=== PATIENT | female | born 1945 | race Caucasian/White ===

== ENCOUNTER 2018-10-26 13:47 | Outpatient (CLI) | payer MEDICARE ==
--- NOTE | 2018-10-26 14:39 | RAD ---
RIGHT KNEE 2 VIEWS: Date: 10/26/18 HISTORY: Knee pain. FINDINGS: Moderate degenerative changes. There is chondrocalcinosis. Spurring from the tibial condyles and femo ral condyles. Spurring at the patellofemoral joint. No significant joint effusion. No fracture. IMPRESSION: There are moderate degenerative changes as described. POS: ROHINI
== END 2018-10-26 13:48 | disposition home or self-care (01) ==
LOC: BICRAD 13:47
PROVIDERS: ATTEND Family Medicine
DX: M25.561 Pain in right knee (principal); M17.11 Unilateral primary osteoarthritis, right knee

== ENCOUNTER 2018-12-19 14:15 | Outpatient (CLI) | payer MEDICARE ==
--- NOTE | 2018-12-19 14:59 | MMO ---
Bilateral MAMMO Bilat Diag [facility]. CLINICAL HISTORY: Patient is 73 years old and is seen for diagnostic exam. The patient family history of breast cancer is unknown. The patient has a history of hodgkin's disease and colon cancer. 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 VIEWS: The views performed were: bilateral craniocaudal with tomosynthesis; bilateral mediolateral oblique with tomosynthesis; and bilateral mediolateral with tomosynthesis. FILMS COMPARED: The present examination has been compared to prior imaging studies performed at [facility] on 03/09/2011, 02/23/2014, 03/13/2014 and 03/08/2016. MAMMOGRAM FINDINGS: The breasts are almost entirely fat. Finding 1: There are stable post operative changes seen in both breasts. Finding 2: There are stable benign appearing calcifications seen in both breasts. There are no suspicious masses, suspicious calcifications, or new areas of architectural distortion. IMPRESSION: THERE IS NO MAMMOGRAPHIC EVIDENCE OF MALIGNANCY. A ROUTINE FOLLOW-UP MAMMOGRAM IN 1 YEAR IS RECOMMENDED. THE RESULTS OF THIS EXAM WERE SENT TO THE PATIENT. ACR BI-RADS Category 2 - Benign finding MAMMOGRAPHY NOTE: 1. A negative mammogram report should not delay a biopsy if a dominant of clinically suspicious mass is present. 2. Approximately 10% to 15% of breast cancers are not detected by mammography. 3. Adenosis and dense breasts may obscure an underlying neoplasm. Reported by: MARIA DOLORES MCLEAN MD Electonically Signed: [id number]
== END 2018-12-19 14:16 | disposition home or self-care (01) ==
LOC: BICMAMMO 14:15
PROVIDERS: ATTEND Family Medicine
DX: D12.6 Benign neoplasm of colon, unspecified (principal); Z85.71 Personal history of Hodgkin lymphoma; Z85.038 Personal history of other malignant neoplasm of large intestine; Z90.13 Acquired absence of bilateral breasts and nipples
CPT/HCPCS: 77066; G0279

== ENCOUNTER 2019-02-25 20:34 | Inpatient (IN) | payer MEDICARE ==
[2019-02-25 21:10] LABS: #Basophils 0.1 thou/uL (0.0-0.2); #Eosinphils 0.4 thou/uL (0.0-0.7); #Lymphocytes 2.1 thou/uL (1.20-3.40); #Monocytes 0.9 thou/uL (0.11-0.59); #Neutrophils 7.4 thou/uL (1.40-6.50); %Basophils 0.9 % (0.0-1.0); %Eosinophils 3.7 % (0.0-10.0); %Lymphocytes 19.1 % (21.0-51.0); %Monocytes 8.2 % (0.0-10.0); %Neutrophils 68.2 % (42.0-75.0); Hemoglobin 12.1 g/dL (12.0-16.0); Mean Corpuscular HGB CONC 33.2 g/dL (32.0-36.0); Mean Corpuscular Hemoglobin 30.2 pg (27.0-31.0); Mean Corpuscular Volume 91.2 fL (78.0-98.0); Mean Platelet Volume 7.6 fL (7.4-10.4); Platelet Count 209 thou/uL (130-400); RBC Distribution Width 12.8 % (11.5-14.5); Red Blood Cell (RBC) Count 4.01 mill/uL (4.20-5.40); White Blood Cell (WBC) Count 10.9 thou/uL (4.8-10.8)
[2019-02-25] MEDS ORDERED: methylPREDNISolone Sod Succ/PF 125 MG/2 ML VIAL ONE (21:24)
[2019-02-25 21:25] LABS: ALT (SGPT) 12 U/L (8-55); AST (SGOT) 18 U/L (5-34); Albumin 4.1 g/dL (3.4-4.8); Alkaline Phosphatase 76 U/L (40-110); Anion Gap 14 mmol/L (10-20); BUN (Urea Nitrogen) 22 mg/dL (9.8-20.1); Bilirubin, Total 0.4 mg/dL (0.2-1.2); Calc. Creatinine Clearance 0 mL/min (70-130); Calcium 9.1 mg/dL (7.8-10.44); Carbon Dioxide 22 mmol/L (23-31); Chloride 106 mmol/L (98-107); Estimated GFR-MDRD 54; Globulin 3.2 g/dL (2.4-3.5); Glucose 171 mg/dL (83-110); Potassium 4.7 mmol/L (3.5-5.1); Protein, Total 7.3 g/dL (6.0-8.3); Sodium 137 mmol/L (136-145)
--- NOTE | 2019-02-25 21:28 | RAD ---
Exam: Chest one view: HISTORY: Chest pain shortness of breath FINDINGS: Extensive surgical clips overlie the left and right chest wall regions. Heart size is upper range of normal. Inspiration is somewhat less than optimal. No confluent pneumonia, overt edema, or pleural effusion. IMPRESSION: Extensive surgical clips overlying the right left chest. Somewhat less than optimal inspiration. No s ignificant acute intrathoracic disease.
--- NOTE | 2019-02-25 22:32 | CT ---
EXAM: CT angiogram of the chest including 3-D rendering: HISTORY: Chest pain COMPARISON: None FINDINGS: There is adequate opacification of the pulmonary arteries. No evidence for aortic aneurysm or dissection. No convincing CT evidence for acute pulmonary embolism. Somewhat dilated proximal pulmonary artery se gments. Bilateral pleural effusions solid larger on the right with some scattered linear parenchymal changes have a more chronic appearance. Old granulomatous calcifications in the right hilum. No evidence for mediastinal mass or adenopathy. No evidence for pericardial effusion. The visualized upper abdomen is unremarkable. IMPRESSION: No convincing CT evidence for acute pulmonary embolism. Bilateral pleural effusions. Somewhat dilated proximal pulmonary artery segments. Other findings as above.
[2019-02-25] MEDS ORDERED: Ketorolac Tromethamine 30 MG/ML VIAL ONE (22:50)
[2019-02-26 00:19] LABS: Bacteria/HPF 1+ HPF (None Seen); Bilirubin Negative (Negative); Blood, Urine Negative (Negative); Clarity Clear (Clear); Glucose, Urine (Dipstick) Normal (Negative); Leukocyte 75 Leu/uL (Negative); Nitrite Negative (Negative); Protein, Urine (Dipstick) Negative (Neg-Trace); RBC/HPF 0-3 HPF (0-3); Squamous Epithelial 0-3 HPF (0-3); Urobilinogen Normal mg/dL (Less than 2); WBC/HPF 0-3 HPF (0-3)
[2019-02-26] MEDS ORDERED: cefTRIAXone\\ROCEPHIN 1 GM VIAL ONE (00:53)
[2019-02-26 01:11] LABS: Troponin I Less than 0.010 ng/mL (< 0.028)
[2019-02-26] MEDS ORDERED: Aspirin Chewable 81 MG TAB ONE (01:45)
[2019-02-26] MEDS ORDERED: ALPRAZolam 1 MG TAB PO PRN (02:11)
[2019-02-26] MEDS ORDERED: Dextrose 5% in Water 1,000 ML IV PRN (02:16)
[2019-02-26] MEDS ORDERED: Dextrose 50% Abboject 50 ML SYRINGE SLOW IVP PRN (02:16)
[2019-02-26 02:27] VITALS: BMI 38.2
[2019-02-26] MEDS ORDERED: Lisinopril 20 MG TAB PO SCH (02:30)
[2019-02-26] MEDS ORDERED: Aspirin 81 mg Enteric Coated Tablet PO SCH (02:30)
[2019-02-26] MEDS ORDERED: Triamterene/Hydrochlorothiazide 37.5 mg/25 mg Tablet PO SCH (02:45)
[2019-02-26] MEDS ORDERED: Venlafaxine HCl XR 150 MG CAP PO SCH (02:45)
[2019-02-26] MEDS: Benzonatate 100 MG CAP PO PRN ×4 (03:02→21:06)
[2019-02-26] MEDS: Simvastatin 40 MG TAB PO SCH ×2 (03:04→20:57)
--- NOTE | 2019-02-26 03:04 | HP ---
CHIEF COMPLAINT: Chest pain and shortness of breath. HISTORY OF PRESENT ILLNESS: Ms. Lynch is a 73-year-old female with past medical history of asthma, congestive heart failure, mitral valve stenosis, bundle-branch block, breast and colon cancer, hypertension, among others, presented to the emergency room with shortness of breath and chest pain that started this morning. The patient used her nebulizer machine without any improvement. The patient also said she had a sore throat and a temperature of 101. The patient started wheezing and also had 4 diarrheal episodes. Workup in the emergency room, the patient was in respiratory distress, wheezing. The patient was given DuoNeb nebulizer treatments and IV steroids. Initial workup, the patient had BNPs in the 200s, procalcitonin level is normal. The patient is being admitted to hospital for further management. PAST MEDICAL HISTORY: 1. Congestive heart failure. 2. Mitral stenosis. 3. Bundle branch block. 4. Asthma. 5. Diabetes. 6. Breast and colon cancer. 7. Diverticulitis. 8. Hypertension. PAST SURGICAL HISTORY: 1. Colon resection. 2. Bilateral mastectomy. FAMILY HISTORY: Reviewed and noncontributory. ALLERGIES: NO KNOWN ALLERGIES. HOME MEDICATIONS: Please see home medication reconciliation form for updated medications. REVIEW OF SYSTEMS: Review of 14 systems negative except what is mentioned in history of present illness. PHYSICAL EXAMINATION: GENERAL: The patient is awake, alert, oriented, in moderate respiratory distress. HEAD AND NECK: Normocephalic, atraumatic. NECK: Supple. No JVD. CHEST: Few bilateral expiratory wheeze. There is mild chest wall tenderness. HEART: S1, S2. Regular. ABDOMEN: Soft, nontender. Bowel sounds present. NEUROLOGIC: Awake, alert, oriented x3. PSYCHIATRIC: Normal mood. EXTREMITIES: No clubbing, no cyanosis. LABORATORY DATA: CBC; WBC count is 10.9, otherwise unremarkable. Chemistry; glucose 171, troponin 0.017, and BNP 219. CT angiogram of the chest shows bilateral pleural effusions. ASSESSMENT: 1. Acute chest pain. 2. Asthma with acute exacerbation. 3. Bilateral pleural effusions, small. 4. Elevated BNP, the patient has a history of congestive heart failure and mitral valve stenosis. 5. Diabetes mellitus, hyperglycemia. 6. Hypertension. 7. History of colon cancer. PLAN: 1. Admit. 2. Telemetry monitoring. 3. Serial cardiac enzymes. 4. Continue with bronchodilators as scheduled and as needed. 5. IV steroids. 6. Reconcile home medications. 7. Deep venous thrombosis prophylaxis. Low molecular weight heparin. 8. Expected length of stay, 2 midnights or more. Job ID: [id number]
[2019-02-26] MEDS: Triamterene/Hydrochlorothiazide 37.5 mg/25 mg Tablet PO SCH ×2 (03:07→20:58)
[2019-02-26] MEDS ORDERED: Docusate 100 MG CAP PO SCH (03:15)
[2019-02-26] MEDS: traMADol HCl 50 MG TAB PO PRN ×3 (03:37→17:19)
[2019-02-26 03:58] LABS: Troponin I Less than 0.010 ng/mL (< 0.028)
[2019-02-26] MEDS: methylPREDNISolone Sod Succ 40 MG VIAL IVP SCH ×3 (05:26→18:30)
[2019-02-26] MEDS: Levothyroxine Sodium 75 MCG TAB PO SCH (05:26)
[2019-02-26] MEDS: HumaLOG 300 UNITS/3 ML VIAL SC PRN ×4 (05:33→21:00)
[2019-02-26] MEDS ORDERED: Alogliptin 25 MG TAB PO SCH (09:00)
[2019-02-26] MEDS ORDERED: Non-Formulary Item 1 EACH (Insulin Degludec [Tresiba] 20 UNIT) SQ SCH (12:00)
[2019-02-26] MEDS: Insulin Glargine 20 UNITS in Pre-Filled Syringe 1 EACH SC SCH (13:11)
[2019-02-26] MEDS ORDERED: Ketorolac Tromethamine 30 MG/ML VIAL IVP SCH (14:15)
[2019-02-26] MEDS ORDERED: Furosemide 20 MG/2 ML VIAL SLOW IVP SCH (15:45)
[2019-02-26] MEDS ORDERED: guaiFENesin/Dextromethorphan 10 ML UDCUP PO PRN (15:48)
--- NOTE | 2019-02-26 15:52 | PDOC.HOSPP ---
- Subjective Encounter Date: 02/26/19 Encounter Time: 15:40 Subjective: f/u for cough/CP/SOB. Receiving Duonebs/Solumedrol with persistent cough with deep inspiration. Minimally productive. Decreased exercise tolerance. - Objective Vital Signs & Weight: Vital Signs (12 hours) Temp Pulse Resp BP Pulse Ox 02/26/19 13:53 105 H 16 02/26/19 11:32 106 H 20 02/26/19 09:38 98.3 F 102 H 18 117/56 L 95 02/26/19 06:32 98 02/26/19 06:29 109 H 20 98 Weight Weight 216 lb I&O: 02/25/19 02/26/19 02/27/19 06:59 06:59 06:59 Intake Total 481 Output Total 440 Balance 41 Result Diagrams: 02/25/19 20:54 02/25/19 20:54 Additional Labs: Accuchecks 02/26/19 02/26/19 13:08 05:31 POC Glucose 501 H 440 H Radiology Reviewed by me: Yes (CTA chest - bilat pleural effusions R>L) EKG Reviewed by me: Yes (Tele - Sinus tachy) Hospitalist ROS - Medication Medications: Active Medications Generic Name Dose Route Start Last Admin Trade Name Freq PRN Reason Stop Dose Admin Albuterol/Ipratropium 3 ml 02/26/19 02:30 02/26/19 13:53 Duoneb NEB 3 ml [id number] TONYA Administration Benzonatate 100 mg 02/26/19 02:49 02/26/19 14:24 Tessalon PO 100 mg Q4H PRN Administration Cough Insulin Glargine 20 units/ 0.2 mls @ 0 mls/hr 02/26/19 12:00 02/26/19 13:11 Miscellaneous Medication SC 0.2 mls 1200 TONYA Administration Insulin Human Lispro 0 units 02/26/19 02:16 02/26/19 13:13 Humalog SC 10 unit .MODERATE SLIDING SC PRN Administration Moderate Correctional Scale Ketorolac Tromethamine 30 mg 02/26/19 14:15 02/26/19 14:22 Toradol IVP 02/26/19 16:00 30 mg NOW TONYA Administration Levothyroxine Sodium 75 mcg 02/26/19 06:00 02/26/19 05:26 Synthroid PO 75 mcg 0600 TONYA Administration Methylprednisolone Sodium Succinate 40 mg 02/26/19 06:00 02/26/19 13:11 Solu-Medrol IVP 40 mg Q6HR TONYA Administration Simvastatin 80 mg 02/26/19 21:00 02/26/19 03:04 Zocor PO 80 mg HS TONYA Administration Tramadol HCl 50 mg 02/26/19 03:30 02/26/19 09:38 Ultram PO 50 mg Q6H PRN Administration Mild-Moderate Pain (1-5) Triamterene/HCTZ 1 tab 02/26/19 21:00 02/26/19 03:07 Maxzide-25 PO 1 tab HS TONYA Administration - Exam General Appearance: NAD, awake alert Eye: PERRL, anicteric sclera ENT: normocephalic atraumatic, no oropharyngeal lesions Neck: supple, symmetric, no JVD, no thyromegaly, no lymphadenopathy Heart: no murmur, no gallops, no rubs, normal peripheral pulses Heart - other findings: tachycardic Respiratory - other findings: coarse sounds bilat, diminished in bases Gastrointestinal: soft, non-tender, non-distended, normal bowel sounds Extremities: no cyanosis Extremities - other findings: minimal edema LE's, small nodule of prox L tibia, firm/mobile Skin: normal turgor, no rashes Neurological: cranial nerve grossly intact, no new deficit Musculoskeletal: normal tone, normal strength Psychiatric: normal affect, A&O x 3 Hosp A/P (1) Dyspnea Code(s): R06.00 - DYSPNEA, UNSPECIFIED Status: Acute Plan: Likely due to #2, continue mgmt as outlined below, O2 prn (2) Bronchitis, acute, with bronchospasm Code(s): J20.9 - ACUTE BRONCHITIS, UNSPECIFIED Status: Acute Plan: Suspected, continue Levaquin, Solumedrol, Duonebs, Robitussin DM (3) Pleural effusion Code(s): J90 - PLEURAL EFFUSION, NOT ELSEWHERE CLASSIFIED Status: Acute Plan: Check 2D echo, TSH, FT4, trial Lasix 20mg IV x 1 now (4) Chest wall pain Code(s): R07.89 - OTHER CHEST PAIN Status: Acute Plan: Toradol 30mg IV q6h (5) Mass of left lower extremity Code(s): R22.42 - LOCALIZED SWELLING, MASS AND LUMP, LEFT LOWER LIMB Status: Acute Plan: Check plain radiographs, pain control, likely outpt referral for evaluation - Plan continue antibiotics, psych social worker, respiratory therapy, out of bed/ambulate , DVT proph w/SCDs Stable overall Lasix 20mg IV x 1 now Add Levaquin 500mg po daily Continue Duonebs/Solumedrol 2D echo for EF X-rays of LLE AM lab: TSH, FT4
--- NOTE | 2019-02-26 16:20 | RAD ---
2 views left tibia/fibula: 02/26/2019 COMPARISON: None HISTORY: Mass lesion of left tibia FINDINGS: No fracture or dislocation. No radiopaque foreign body or subcutaneous gas. There is an ova l calcification overlying the medial femoral condyle which could represent an intra-articular loose body, measuring 1.4 cm in transverse dimension. IMPRESSION: No acute fracture or dislocation. Given history of mass lesion, MRI advised with and with out contrast. Possible intra-articular loose body as detailed above.
[2019-02-26] MEDS: Ketorolac Tromethamine 30 MG/ML VIAL IVP SCH ×2 (18:30→21:08)
[2019-02-26] MEDS ORDERED: HumaLOG 300 UNITS/3 ML VIAL SC SCH (19:00)
[2019-02-26] MEDS: Aspirin 81 mg Enteric Coated Tablet PO SCH (20:57)
[2019-02-26] MEDS: Docusate 100 MG CAP PO SCH (20:58)
[2019-02-26] MEDS: Venlafaxine HCl XR 150 MG CAP PO SCH (20:58)
[2019-02-26] MEDS: Lisinopril 20 MG TAB PO SCH (20:58)
[2019-02-26] MEDS: Alogliptin 25 MG TAB PO SCH (20:59)
[2019-02-26] MEDS ORDERED: LIRAGLUTIDE 1.2 MG SC SCH (21:00)
[2019-02-26] MEDS ORDERED: Linaclotide [Linzess] 145 MCG PO SCH (21:00)
[2019-02-27] MEDS: methylPREDNISolone Sod Succ 40 MG VIAL IVP SCH ×4 (00:24→17:53)
[2019-02-27] MEDS: traMADol HCl 50 MG TAB PO PRN ×3 (00:26→16:59)
[2019-02-27 04:37] LABS: Anion Gap 15 mmol/L (10-20); BUN (Urea Nitrogen) 34 mg/dL (9.8-20.1); Calc. Creatinine Clearance 65 mL/min (70-130); Calcium 8.9 mg/dL (7.8-10.44); Carbon Dioxide 19 mmol/L (23-31); Chloride 103 mmol/L (98-107); Estimated GFR-MDRD 43; Glucose 326 mg/dL (83-110); Potassium 6.3 mmol/L (3.5-5.1); Sodium 131 mmol/L (136-145)
[2019-02-27 04:50] LABS: Free T4 (Free Thyroxine) 0.85 ng/dL (0.70-1.48); Thyroid Stimulating Hormone 0.296 uIU/mL (0.35-4.94)
[2019-02-27] MEDS ORDERED: Furosemide 20 MG/2 ML VIAL SLOW IVP SCH (06:00)
[2019-02-27] MEDS: Levothyroxine Sodium 75 MCG TAB PO SCH (06:16)
[2019-02-27] MEDS: Ketorolac Tromethamine 30 MG/ML VIAL IVP SCH ×3 (06:17→17:53)
[2019-02-27] MEDS: Benzonatate 100 MG CAP PO PRN ×3 (06:30→16:58)
[2019-02-27] MEDS: Insulin Glargine 20 UNITS in Pre-Filled Syringe 1 EACH SC SCH (12:09)
[2019-02-27] MEDS: HumaLOG 300 UNITS/3 ML VIAL SC PRN ×3 (12:09→20:51)
--- NOTE | 2019-02-27 14:09 | PDOC.HOSPP ---
- Subjective Encounter Date: 02/27/19 Encounter Time: 14:00 Subjective: f/u for dyspnea and suspected bronchitis/asthma exacerbation on Solumedrol, Duonebs, Dulera. Still coughing and feels weak. Echo performed today but results pending. - Objective Vital Signs & Weight: Vital Signs (12 hours) Temp Pulse Resp BP Pulse Ox 02/27/19 11:30 98.5 F 112 H 20 126/56 L 95 02/27/19 11:20 102 H 16 02/27/19 07:31 98 F 110 H 24 H 121/83 95 02/27/19 07:07 95 02/27/19 06:55 98 16 95 02/27/19 04:07 97.9 F 96 17 115/65 92 L Weight Weight 216 lb I&O: 02/26/19 02/27/19 02/28/19 06:59 06:59 06:59 Intake Total 481 1531 Output Total 440 850 Balance 41 681 Result Diagrams: 02/25/19 20:54 02/27/19 03:52 Additional Labs: Accuchecks 02/27/19 02/27/19 02/26/19 10:46 03:58 20:35 POC Glucose 542 H 344 H 439 H 02/26/19 16:29 POC Glucose 512 H Microbiology 02/25/19 23:50 Nasal swab Influenza Types A,B Direct EIA - Final 02/25/19 21:28 Venous blood - Right Arm Blood Culture - Preliminary Specimen has been received and culture in progress. No Growth to date. 02/25/19 21:24 Venous blood - Left Arm Blood Culture - Preliminary Specimen has been received and culture in progress. No Growth to date. Laboratory Tests 02/25/19 02/25/19 02/25/19 20:54 20:54 20:54 Sodium 137 Potassium 4.7 BUN 22 H Creatinine 1.01 B-Natriuretic Peptide 219.1 H Procalcitonin 0.03 Free T4 TSH 3rd Generation 02/27/19 03:52 Sodium Potassium BUN Creatinine B-Natriuretic Peptide Procalcitonin Free T4 0.85 TSH 3rd Generation 0.2960 L Radiology Reviewed by me: Yes (L tibia x-ray - no acute changes) EKG Reviewed by me: Yes (Tele - Sinus tachycardia) Hospitalist ROS - Medication Medications: Active Medications Generic Name Dose Route Start Last Admin Trade Name Freq PRN Reason Stop Dose Admin Albuterol/Ipratropium 3 ml 02/26/19 02:30 02/27/19 11:20 Duoneb NEB 3 ml [id number] TONYA Administration Alogliptin Benzoate 25 mg 02/26/19 21:00 02/26/19 20:59 Alogliptin PO 25 mg HS TONYA Administration Aspirin 81 mg 02/26/19 21:00 02/26/19 20:57 Ecotrin PO 81 mg HS TONYA Administration Benzonatate 100 mg 02/26/19 02:49 02/27/19 12:10 Tessalon PO 100 mg Q4H PRN Administration Cough Docusate Sodium 100 mg 02/26/19 21:00 02/26/19 20:58 Colace PO 100 mg HS TONYA Administration Guaifenesin/Dextromethorphan 10 ml 02/26/19 15:48 02/27/19 06:30 Robitussin Dm PO 10 ml Q6H PRN Administration Cough Insulin Glargine 20 units/ 0.2 mls @ 0 mls/hr 02/26/19 12:00 02/27/19 12:09 Miscellaneous Medication SC 0.2 mls 1200 TONYA Administration Insulin Human Lispro 0 units 02/26/19 18:54 02/27/19 12:09 Humalog SC 13 unit .AGGRESSIVE SLIDING PRN Administration AGGRESSIVE SLIDING SCALE Protocol Ketorolac Tromethamine 30 mg 02/26/19 18:00 02/27/19 12:08 Toradol IVP 03/03/19 18:01 30 mg Q6HR TONYA Administration Levofloxacin 500 mg 02/27/19 06:00 02/27/19 06:16 Levaquin PO 500 mg 0600 TONYA Administration Levothyroxine Sodium 75 mcg 02/26/19 06:00 02/27/19 06:16 Synthroid PO 75 mcg 0600 TONYA Administration Lisinopril 20 mg 02/26/19 21:00 02/26/19 20:58 Zestril PO 20 mg HS TONYA Administration Methylprednisolone Sodium Succinate 40 mg 02/26/19 06:00 02/27/19 12:07 Solu-Medrol IVP 40 mg Q6HR TONYA Administration Simvastatin 80 mg 02/26/19 21:00 02/26/19 20:57 Zocor PO 80 mg HS TONYA Administration Tramadol HCl 50 mg 02/26/19 03:30 02/27/19 09:14 Ultram PO 50 mg Q6H PRN Administration Mild-Moderate Pain (1-5) Triamterene/HCTZ 1 tab 02/26/19 21:00 02/26/19 20:58 Maxzide-25 PO 1 tab HS TONYA Administration Venlafaxine HCl 150 mg 02/26/19 21:00 02/26/19 20:58 Effexor Xr PO 150 mg HS TONYA Administration - Exam General Appearance: NAD, awake alert Eye: PERRL, anicteric sclera ENT: normocephalic atraumatic, no oropharyngeal lesions Neck: supple, symmetric, no JVD, no thyromegaly, no lymphadenopathy Heart: no murmur, no gallops, no rubs, normal peripheral pulses Heart - other findings: tachycardic Respiratory - other findings: wheezes bilat, diminished in bases Gastrointestinal: soft, non-tender, non-distended, normal bowel sounds, no palpable masses Extremities: no cyanosis, no clubbing Skin: normal turgor, no lesions Neurological: cranial nerve grossly intact, no new deficit Musculoskeletal: normal tone, normal strength Psychiatric: normal affect, A&O x 3 Hosp A/P (1) Dyspnea Code(s): R06.00 - DYSPNEA, UNSPECIFIED Status: Acute Plan: Likely due to bronchitis/asthma exacerbation, continue Solumedrol, pulm support , Levaquin (2) Bronchitis, acute, with bronchospasm Code(s): J20.9 - ACUTE BRONCHITIS, UNSPECIFIED Status: Acute Plan: Suspected, see above (3) JAYJAY (acute kidney injury) Code(s): N17.9 - ACUTE KIDNEY FAILURE, UNSPECIFIED Status: Acute Plan: Likely iatrogenic, avoid nephrotoxic meds and limit contrast, NS @75ml/h, serial creatinine (4) Hyperkalemia Code(s): E87.5 - HYPERKALEMIA Status: Acute Plan: Likely due to JAYJAY, repeat K+ to confirm (5) Pleural effusion Code(s): J90 - PLEURAL EFFUSION, NOT ELSEWHERE CLASSIFIED Status: Acute Plan: ? acute/subacute, Echo pending (6) Chest wall pain Code(s): R07.89 - OTHER CHEST PAIN Status: Acute (7) Mass of left lower extremity Code(s): R22.42 - LOCALIZED SWELLING, MASS AND LUMP, LEFT LOWER LIMB Status: Acute Plan: MRI of LLE when renal function stabilizing (8) Hyponatremia Code(s): E87.1 - HYPO-OSMOLALITY AND HYPONATREMIA Status: Acute Plan: Likely pseudohyponatremia due to hyperglycemia (9) Sinus tachycardia Code(s): R00.0 - TACHYCARDIA, UNSPECIFIED Status: Acute Plan: Likely due to bronchodilators, await 2D echo, normal FT4 level - Plan continue antibiotics, criminal justice social worker, respiratory therapy, DVT proph w/SCDs Stable overall Hold Lasix Add Levaquin 500mg po daily Continue Duonebs/Solumedrol 2D echo for EF pending MRI of LLE when renal fxn stabilizes Add Singulair 10mg daily AM lab: BMP Convert to inpt status
[2019-02-27 14:31] LABS: Anion Gap 18 mmol/L (10-20); BUN (Urea Nitrogen) 43 mg/dL (9.8-20.1); Calc. Creatinine Clearance 45 mL/min (70-130); Calcium 8.7 mg/dL (7.8-10.44); Carbon Dioxide 18 mmol/L (23-31); Chloride 97 mmol/L (98-107); Estimated GFR-MDRD 28; Potassium 5.7 mmol/L (3.5-5.1); Sodium 127 mmol/L (136-145)
[2019-02-27 14:39] LABS: Glucose 606 mg/dL (83-110)
[2019-02-27] MEDS ORDERED: Montelukast Sodium 10 mg Tablet PO SCH (15:00)
[2019-02-27] MEDS: Sodium Chloride 0.9% 1,000 ML IV SCH (16:59)
[2019-02-27] MEDS: Venlafaxine HCl XR 150 MG CAP PO SCH (20:50)
[2019-02-27] MEDS: Simvastatin 40 MG TAB PO SCH (20:50)
[2019-02-27] MEDS: Aspirin 81 mg Enteric Coated Tablet PO SCH (20:50)
[2019-02-27] MEDS: Docusate 100 MG CAP PO SCH (20:50)
[2019-02-27] MEDS: Alogliptin 25 MG TAB PO SCH (20:59)
[2019-02-27] MEDS ORDERED: Calcium Carbonate 500 MG ChewTAB PO PRN (23:29)
[2019-02-28] MEDS: Ketorolac Tromethamine 30 MG/ML VIAL IVP SCH ×4 (00:13→18:17)
[2019-02-28] MEDS: methylPREDNISolone Sod Succ 40 MG VIAL IVP SCH ×4 (00:14→18:18)
[2019-02-28] MEDS: Phenergan/Codeine 10-6.25mg/5ml UDCUP PO PRN ×5 (00:17→20:32)
[2019-02-28 05:15] LABS: Anion Gap 14 mmol/L (10-20); BUN (Urea Nitrogen) 51 mg/dL (9.8-20.1); Calc. Creatinine Clearance 51 mL/min (70-130); Calcium 9.1 mg/dL (7.8-10.44); Carbon Dioxide 21 mmol/L (23-31); Chloride 99 mmol/L (98-107); Estimated GFR-MDRD 32; Glucose 346 mg/dL (83-110); Potassium 5.7 mmol/L (3.5-5.1); Sodium 128 mmol/L (136-145)
[2019-02-28] MEDS: Levothyroxine Sodium 75 MCG TAB PO SCH (06:03)
[2019-02-28] MEDS: HumaLOG 300 UNITS/3 ML VIAL SC PRN ×4 (06:22→20:40)
[2019-02-28] MEDS: Sodium Chloride 0.9% 1,000 ML IV SCH (12:03)
[2019-02-28] MEDS: Insulin Glargine 20 UNITS in Pre-Filled Syringe 1 EACH SC SCH (12:15)
--- NOTE | 2019-02-28 12:45 | PDOC.HOSPP ---
- Subjective Encounter Date: 02/28/19 Encounter Time: 12:35 Subjective: f/u for dyspnea, suspected asthma exacerbation, pleural effusion and sinus tachycardia. Still coughing today but non-productive. - Objective Vital Signs & Weight: Vital Signs (12 hours) Temp Pulse Resp BP Pulse Ox 02/28/19 10:33 107 H 18 96 02/28/19 07:54 97.7 F 104 H 19 114/65 98 02/28/19 07:36 96 02/28/19 07:35 105 H 18 95 02/28/19 04:00 97.7 F 102 H 19 116/59 L 95 02/28/19 02:08 105 H 16 Weight Weight 221 lb 11.2 oz I&O: 02/27/19 02/28/19 03/01/19 06:59 06:59 06:59 Intake Total 1531 668 Output Total 850 300 250 Balance 681 -300 418 Result Diagrams: 02/25/19 20:54 02/28/19 04:30 Additional Labs: Accuchecks 02/28/19 02/28/19 02/27/19 11:45 06:20 20:13 POC Glucose 315 H 379 H 470 H 02/27/19 16:34 POC Glucose 512 H Microbiology 02/25/19 23:50 Nasal swab Influenza Types A,B Direct EIA - Final 02/25/19 21:28 Venous blood - Right Arm Blood Culture - Preliminary Specimen has been received and culture in progress. No Growth to date. 02/25/19 21:24 Venous blood - Left Arm Blood Culture - Preliminary Specimen has been received and culture in progress. No Growth to date. Laboratory Tests 02/25/19 02/25/19 02/25/19 20:54 20:54 20:54 Sodium 137 Potassium 4.7 BUN 22 H Creatinine 1.01 B-Natriuretic Peptide 219.1 H Procalcitonin 0.03 Free T4 TSH 3rd Generation 02/27/19 02/27/19 03:52 13:53 Sodium 127 L Potassium 5.7 H BUN 43 H Creatinine 1.76 H B-Natriuretic Peptide Procalcitonin Free T4 0.85 TSH 3rd Generation 0.2960 L Radiology Reviewed by me: Yes (2D echo - EF 60-65%, technically limited study) EKG Reviewed by me: Yes (Tele - sinus tachycardia in low 100's) Hospitalist ROS - Medication Medications: Active Medications Generic Name Dose Route Start Last Admin Trade Name Freq PRN Reason Stop Dose Admin Albuterol/Ipratropium 3 ml 02/26/19 02:30 02/28/19 10:33 Duoneb NEB 3 ml [id number] TONYA Administration Alogliptin Benzoate 25 mg 02/26/19 21:00 02/27/19 20:59 Alogliptin PO 25 mg HS TONYA Administration Aspirin 81 mg 02/26/19 21:00 02/27/19 20:50 Ecotrin PO 81 mg HS TONYA Administration Benzonatate 100 mg 02/26/19 02:49 02/27/19 16:58 Tessalon PO 100 mg Q4H PRN Administration Cough Calcium Carbonate 500 mg 02/27/19 23:29 02/28/19 00:12 Tums PO 500 mg QID PRN Administration INDIGESTION Docusate Sodium 100 mg 02/26/19 21:00 02/27/19 20:50 Colace PO 100 mg HS TONYA Administration Guaifenesin/Dextromethorphan 10 ml 02/26/19 15:48 02/27/19 06:30 Robitussin Dm PO 10 ml Q6H PRN Administration Cough Insulin Glargine 20 units/ 0.2 mls @ 0 mls/hr 02/26/19 12:00 02/28/19 12:15 Miscellaneous Medication SC 0.2 mls 1200 TONYA Administration Sodium Chloride 1,000 mls @ 50 mls/hr 02/27/19 14:15 02/28/19 12:03 Normal Saline 0.9% IV 1,000 mls .Q20H TONYA Administration Insulin Human Lispro 0 units 02/26/19 18:54 02/28/19 12:11 Humalog SC 11 unit .AGGRESSIVE SLIDING PRN Administration AGGRESSIVE SLIDING SCALE Protocol Ketorolac Tromethamine 30 mg 02/26/19 18:00 02/28/19 12:05 Toradol IVP 03/03/19 18:01 30 mg Q6HR TONYA Administration Levofloxacin 500 mg 02/27/19 06:00 02/28/19 06:03 Levaquin PO 500 mg 0600 TONYA Administration Levothyroxine Sodium 75 mcg 02/26/19 06:00 02/28/19 06:03 Synthroid PO 75 mcg 0600 TONYA Administration Lisinopril 20 mg 02/26/19 21:00 02/26/19 20:58 Zestril PO 20 mg HS TONYA Administration Methylprednisolone Sodium Succinate 20 mg 02/27/19 18:00 02/28/19 12:02 Solu-Medrol IVP 20 mg Q6HR TONYA Administration Promethazine HCl/Codeine 5 ml 02/27/19 14:04 02/28/19 10:08 Phenergan/Codeine Syrup PO 5 ml Q4H PRN Administration Cough Simvastatin 80 mg 02/26/19 21:00 02/27/19 20:50 Zocor PO 80 mg HS TONYA Administration Tramadol HCl 50 mg 02/26/19 03:30 02/27/19 16:59 Ultram PO 50 mg Q6H PRN Administration Mild-Moderate Pain (1-5) Triamterene/HCTZ 1 tab 02/26/19 21:00 02/26/19 20:58 Maxzide-25 PO 1 tab HS TONYA Administration Venlafaxine HCl 150 mg 02/26/19 21:00 02/27/19 20:50 Effexor Xr PO 150 mg HS TONYA Administration - Exam General Appearance: NAD, awake alert Eye: PERRL, anicteric sclera ENT: normocephalic atraumatic, no oropharyngeal lesions Neck: supple, symmetric, no JVD, no thyromegaly, no lymphadenopathy Heart: no murmur, no gallops, no rubs, normal peripheral pulses Heart - other findings: tachycardic Respiratory - other findings: diminished bilat, exp wheeze/rhonchi Gastrointestinal: soft, non-tender, non-distended, normal bowel sounds, no palpable masses Extremities: no cyanosis, no clubbing, no edema Skin: normal turgor, no lesions Neurological: cranial nerve grossly intact, no new deficit Musculoskeletal: normal tone, normal strength Psychiatric: normal affect, A&O x 3 Hosp A/P (1) Dyspnea Code(s): R06.00 - DYSPNEA, UNSPECIFIED Status: Acute Plan: Likely multifactorial including #2, check Viral resp panel, continue Duonebs, Solumedrol, Levaquin, consult Pulmonology for any further recommendations (2) Bronchitis, acute, with bronchospasm Code(s): J20.9 - ACUTE BRONCHITIS, UNSPECIFIED Status: Acute Plan: Suspected, continue pulmonary support as noted in #1 (3) JAYJAY (acute kidney injury) Code(s): N17.9 - ACUTE KIDNEY FAILURE, UNSPECIFIED Status: Acute Plan: Persistent, continue low-volume IVF's, avoid nephrotoxic meds and limit contrast , consult Nephrology for evaluation (4) Hyperkalemia Code(s): E87.5 - HYPERKALEMIA Status: Acute Plan: Mild improvement, likely due to JAYJAY, continue low-volume IVF's, serial K+ monitoring (5) Pleural effusion Code(s): J90 - PLEURAL EFFUSION, NOT ELSEWHERE CLASSIFIED Status: Acute Plan: Consult Pulmonology for evaluation (6) Chest wall pain Code(s): R07.89 - OTHER CHEST PAIN Status: Acute (7) Mass of left lower extremity Code(s): R22.42 - LOCALIZED SWELLING, MASS AND LUMP, LEFT LOWER LIMB Status: Acute Plan: Plan for MRI LLE when renal function stabilizes (8) Hyponatremia Code(s): E87.1 - HYPO-OSMOLALITY AND HYPONATREMIA Status: Acute (9) Sinus tachycardia Code(s): R00.0 - TACHYCARDIA, UNSPECIFIED Status: Acute Plan: Persistent, consult Cardiology for evaluation - Plan continue antibiotics, transition social worker, respiratory therapy, DVT proph w/SCDs Stable overall Hold Lasix due to JAYJAY Add Levaquin 500mg po daily Continue Duonebs/Solumedrol 2D echo with EF 60-65%, may need repeat due to technical limitations MRI of LLE when renal fxn stabilizes Add Singulair 10mg daily Consult Nephrology/Pulmonology/Cardiology AM lab: BMP, A1C, Resp viral panel, repeat BNP
--- NOTE | 2019-02-28 14:59 | PQF ---
SHERWIN CASTROARACELI DO [id number] CLINICAL DOCUMENTATION IMPROVEMENT CLARIFICATION FORM: ICD-10 Updated PLEASE DO AN ADDENDUM TO THE PROGRESS NOTE WITH ANY DOCUMENTATION UPDATES OR ADDITIONS AND CARRY THROUGH TO DC SUMMARY. THANK YOU. DATE: 02/28/19 ATTN:DR. Kristie CACERES Please exercise your independent, professional judgment in responding to the clarification form. Clinical indicators are provided on the bottom of this form for your review. Please check appropriate box(s): [ x ] Acute Respiratory Failure: [ x ] with Hypoxia[ ] with Hypercapnia [ ] Acute On Chronic Respiratory Failure: [ ] with Hypoxia [ ] with Hypercapnia [ ] Acute Respiratory Failure due to: (etiology) [ ] Chronic Respiratory Failure only [ ] with Hypoxia [ ] with Hypercapnia [ ] Other diagnosis [ ] Unable to determine In addition, please specify: Present on Admission (POA): [ x ] Yes [ ] No [ ] Unable to determine For continuity of documentation, please document condition throughout progress notes and discharge summary. Thank You. CLINICAL INDICATORS - SIGNS / SYMPTOMS / LABS 02/26 ED: PHYSICIAN DIAGNOSIS/ACUTE ASTHMA EXACERBATION, CHEST PAIN, CHF, PATIENT PRESENTS WITH C/O SOB REQUIRING SUPPLEMENTAL OXYGEN 97% AT 2L/NC, RESP RATE 20-26. 02/25 CHEST X-RAY IMPRESSION: SOMEWHAT LESS THAN OPTIMAL INSPIRATION 02/26 (VAUGHN-JOSE) H&P: WORKUP IN THE EMERGENCY ROOM, THE PATIENT WAS IN RESPIRATORY DISTRESS, WHEEZING. THE PATIENT WAS GIVEN DUONEBS AND IV STEROIDS 02/26 PN (MORRIS) RECEIVING DUONEBS/SOLUMEDROL WITH PERSISTENT COUGH WITH DEEP INSPIRATION MINIMALLY PRODUCTIVE, HEART TACHYCARDIC, 02/27 PN (MORRIS) A/P : 1) DYSPNEA, 2) BRONCHITIS W BRONCHOSPASM, 5) PLEURAL EFFUSION RISK: DX ASTHMA EXACERBATION, BILATERAL PLEURAL EFFUSIONS, HX OF CONGESTIVE HEART FAILURE (H&P/VAUGHN) 02/26 DX DYSPNEA, BRONCHITIS W BRONCHOSPASM (MORRIS/PN) 02/26 TREATMENTS: SUPPLEMENTAL OXYGEN (02/26-PRESENT ) DUONEB Q 4 HOURS (02/26-PRESENT) LASIX IV X 1 ORDERED (MORRIS/ 02/26) THANK YOU! IMER (This form is maintained as a part of the permanent medical record) 2014 [employer] All Rights Reserved [email or web address] [phone] [email or web address]
--- NOTE | 2019-02-28 16:13 | CON ---
DATE OF CONSULTATION: 02/28/2019 CONSULTING PHYSICIAN: Dr. Butts. REASON FOR CONSULTATION: Shortness of breath, cough, congestion, and pleural effusions. HISTORY OF PRESENT ILLNESS: Ms. Lynch is a 73-year-old female, who was healthy up until Tuesday of this past week. She was at the [employer] game, walking out to the car and became severely dyspneic and had to rest. The next day she presented to the emergency room with complaints of shortness of breath, wheezing, fever, and a dry cough. She is currently being treated for asthmatic bronchitis. Interestingly, she has a history of mitral stenosis and was diagnosed in [place] 3 years ago. She has not had followed up for the valve since that time. She is also a brittle diabetic, who is having trouble controlling her blood sugar. She has chronic persistent asthma and has had at least 5 hospitalizations for asthma. She was intubated about 20 years ago in [place]. PAST MEDICAL HISTORY: 1. Mitral valve stenosis. 2. Asthma. 3. Diabetes mellitus. 4. Bundle branch block. 5. Hodgkin lymphoma requiring manual radiation and chemotherapy. 6. Breast cancer requiring bilateral mastectomies, but no radiation or chemotherapy. 7. Colon cancer from a schwannoma requiring colon resection. 8. Diverticulitis. 9. Hypertension. PAST SURGICAL HISTORY: 1. Colon resection. 2. Bilateral mastectomy. FAMILY MEDICAL HISTORY: Unremarkable. ALLERGIES: NONE. MEDICATIONS: Prior to admission, 1. Albuterol metered-dose inhaler as needed. 2. Mobic 7.5 mg daily as needed. 3. Victoza 1.2 mg subcu daily. 4. Effexor 150 mg nightly. 5. Linzess 145 mcg nightly. 6. Tradjenta 5 mg daily. 7. Docusate 100 mg nightly. 8. Aspirin 81 mg daily. 9. Triamterene/hydrochlorothiazide one daily. 10. Simvastatin 80 mg daily. 11. Zestril 20 mg daily. 12. Levothyroxine 75 mcg daily. 13. Tresiba insulin 20 units at noon. 14. Xanax 1 mg nightly. Current inpatient medications, these were reviewed and listed in the active medication list under [facility] in the chart. Of note, she is currently on levofloxacin, methylprednisolone, Singulair along with her home medications. REVIEW OF SYSTEMS: She has had constant dull chest pain on the left side of her chest that is reproducible with deep palpation. She has had a dry cough. She has had low-grade fever and congestion. PHYSICAL EXAMINATION: VITAL SIGNS: Temperature 97.7, pulse 106, respirations 18, O2 saturation 94% on room air, blood pressure 114/65. GENERAL: She is awake, pleasant, alert, and in no obvious distress. She has a very obvious cough. HEENT: Pupils reactive. Sclerae anicteric. Oropharynx clear. NECK: No adenopathy. No JVD or bruits. LUNGS: She has crackles in both bases along with mild dullness to percussion in both bases. She has wheezing best heard anteriorly. CARDIOVASCULAR: S1 and S2 regular with a 2/6 holosystolic murmur. ABDOMEN: Obese, soft, nontender, and nondistended. She has 2 areas, where she has bruising from Lovenox administration. EXTREMITIES: No clubbing, cyanosis, or edema. NEUROLOGIC: Nonfocal. LABORATORY DATA: Sodium 128, potassium 5.7, chloride 99, CO2 of 21, BUN 51, creatinine 1.6, glucose 346. White blood cell count 10.9, hematocrit 36.6, and platelet count 209. IMAGING STUDIES: A chest x-ray shows some tracie in the left axilla of the chest and into the right axilla. She has a fairly normal heart size, normal diaphragms. No acute infiltrates noted. CT of the chest shows small bilateral pleural effusions. Echocardiogram report demonstrated diastolic dysfunction with the EF of 60% to 65%. The mitral valve could not be well visualized and the aortic valve leaflets could not be well visualized according to the report. ASSESSMENT: 1. Asthmatic bronchitis. 2. Possible component of congestive heart failure from diastolic dysfunction. 3. History of mitral stenosis-unclear as to severity. RECOMMENDATION: 1. Agree with steroids and nebulization treatment. 2. She may need more aggressive management of her blood sugars. 3. Continue antibiotics. 4. I will withhold IV fluids at this time as there maybe a component of heart failure aggravating the situation. I know this is less than desirable given her kidney function. 5. Agree with holding the Zestril and the triamterene. 6. I have discussed the case with Dr. Rey. Job ID: [id number]
[2019-02-28] MEDS: Budesonide 0.5 MG/2 ML NEB INH SCH (18:35)
[2019-02-28] MEDS: Arformoterol 15 MCG/2 ML NEB NEB SCH (18:35)
[2019-02-28] MEDS ORDERED: Methylnaltrexone 12 MG/0.6 ML VIAL SC SCH (18:45)
[2019-02-28] MEDS: Simvastatin 40 MG TAB PO SCH (20:31)
[2019-02-28] MEDS: Docusate 100 MG CAP PO SCH (20:31)
[2019-02-28] MEDS: Montelukast Sodium 10 mg Tablet PO SCH (20:31)
[2019-02-28] MEDS: Venlafaxine HCl XR 150 MG CAP PO SCH (20:31)
[2019-02-28] MEDS: Aspirin 81 mg Enteric Coated Tablet PO SCH (20:31)
--- NOTE | 2019-02-28 20:40 | CON ---
DATE OF CONSULTATION: 02/28/2019 REASON FOR CONSULTATION: Mitral stenosis. HISTORY OF PRESENT ILLNESS: Ms. Lynch is a very pleasant 73-year-old white female, who comes to the hospital for shortness of breath. She has been having a sore throat, fevers of about 101, and diarrhea. It looks like she has caught some sort of viral infection. She has a history of bronchial asthma when she was 14 years old. She started to get short-winded, so she thought her bronchial asthma was acting up, so she came into the hospital for further evaluation and care. She was admitted and placed on aggressive pulmonary toilet. Cardiology is being consulted as there is a history of mitral stenosis. She had an echocardiogram done that showed difficult to see mitral valve and measurements were not complete, so it was suggested that she needed a transesophageal echo. Talking with Ms. Lynch, she tells me she was told she had mitral stenosis about 3 to 4 years ago. She has followed with a personal lines insurance agent then in [place] for at least the last 8 years. In the last 3 years, she was told that she had mitral stenosis, but it was something that was not severe enough to do anything about, and she has had serial echoes. Her last echo was about 6 months ago and her last visit with a personal lines insurance agent in [place] was about also 6 months ago and she was told everything looked pretty much stable as before. She denies any palpitations. Her shortness of breath is better. PAST MEDICAL HISTORY: 1. History of diastolic heart failure. 2. History of mitral stenosis, unclear as to what the extent is. 3. History of bundle-branch block. 4. Bronchial asthma. 5. Type 2 diabetes. 6. Colon cancer and breast cancer. 7. Diverticulitis. 8. Hypertension. PAST SURGICAL HISTORY: 1. Colon resection. 2. Bilateral mastectomies. FAMILY HISTORY: Noncontributory. ALLERGIES: NO KNOWN DRUG ALLERGIES. OUTPATIENT MEDICATIONS: 1. Albuterol inhaler. 2. Mobic. 3. Victoza. 4. Effexor. 5. Linzess. 6. Tradjenta. 7. Stool softener. 8. Aspirin 81 a day. 9. Triamterene/hydrochlorothiazide 37.5/25 a day. 10. Simvastatin 80 mg a day. 11. Lisinopril 20 mg a day. 12. Synthroid 75 mcg a day. 13. Insulin Tresiba. 14. Xanax p.r.n. ALLERGIES: NO KNOWN DRUG ALLERGIES. REVIEW OF SYSTEMS: A 12-point review of systems was done and was all negative unless stated in the history of present illness. PHYSICAL EXAMINATION: VITAL SIGNS: Temperature 98.4, pulse 104 to 87, respiratory rate 16, saturating 95% on room air, blood pressure 122/67. GENERAL: Awake, alert, oriented x3. No distress. HEENT: Normocephalic, atraumatic. NECK: Supple. LUNGS: Have expiratory wheezes. ABDOMEN: Soft. Positive bowel sounds. EXTREMITIES: No edema. SKIN: Warm and dry. LABORATORY DATA: Laboratory work was reviewed. White count of 10.9, hemoglobin 12, hematocrit 36, platelet count of 209. Chemistry with a sodium 128, potassium was 5.7, BUN of 51, creatinine 1.58, GFR of 32, glucose was 300, calcium 9.1. Troponin was negative x1. TSH was low, but free T4 was 0.85, which is within low side of normal. UA was unremarkable. CT of the chest showed no evidence of pulmonary embolism, bilateral pleural effusions, and a dilated proximal pulmonary artery. ASSESSMENT: 1. Acute on chronic diastolic heart failure. 2. Mitral stenosis, unknown extent of disease. Echocardiogram is not clear. 3. Bronchial asthma. 4. Viral infection. PLAN: 1. We will repeat transthoracic echo at this time. I think we should be able to get better images and just focus on the mitral valve and the mitral valve measurement to see what the extent of the mitral stenosis is. On one of the views, it looks like there is movement on the mitral valve and is probably not severe. It is either mild to moderate. She does not have significant murmur either. If we cannot see the mitral valve on repeat study, we may consider doing a transesophageal echo in the future. At this point, she is still short of breath and she is still dealing with her bronchial asthma. 2. I agree with IV diuresis for diastolic heart failure. 3. Pulmonary toilet per Primary Team. Thank you for letting us to participate in the care of your patient. We will follow. Job ID: [id number]
[2019-02-28] MEDS: Alogliptin 25 MG TAB PO SCH (21:20)
--- NOTE | 2019-02-28 21:22 | CON ---
DATE OF CONSULTATION: 02/28/2019 CONSULTING PHYSICIAN: Dr. Conner. REASON FOR CONSULTATION: Acute kidney injury and hyperkalemia. REASON FOR ADMISSION: Chest pain. HISTORY OF PRESENT ILLNESS: This is a pleasant 73-year-old female with history of CHF, mitral stenosis, asthma, diabetes, breast and colon cancer, came to the hospital with chest pain. The patient was also found to have acute kidney injury, hyperkalemia, and Nephrology was consulted. No fever or chills. She has been treated for COPD exacerbation. PAST MEDICAL HISTORY: CHF, mitral stenosis, bundle branch block, asthma, diabetes, breast and colon cancer, diverticulitis, hypertension. PAST SURGICAL HISTORY: Colon resection, mastectomy. HOME MEDICATIONS: 1. ProAir. 2. Mobic. 3. Victoza. 4. Effexor. 5. Linzess. 6. Tradjenta. 7. Ecotrin. 8. Triamterene. 9. Zestril. 10. Synthroid. 11. Tresiba. 12. Xanax. ALLERGIES: NO KNOWN DRUG ALLERGIES. SOCIAL HISTORY: No smoking, alcohol, or drugs. FAMILY HISTORY: No history of kidney disease. REVIEW OF SYSTEMS: CONSTITUTIONAL: Negative for weight loss or gain, ability to conduct usual activities. SKIN: Negative for rash, itching. EYES: Negative for double vision, pain. ENT/MOUTH: Negative for nose bleeding, neck stiffness, pain, tenderness. CARDIOVASCULAR: Negative for palpitations, dyspnea on exertion, orthopnea. RESPIRATORY: Negative for shortness of breath, wheezing, cough, hemoptysis, fever or night sweats. GASTROINTESTINAL: Negative for poor appetite, abdominal pain, heartburn, nausea, vomiting, constipation, or diarrhea. GENITOURINARY: Negative for urgency, frequency, dysuria, nocturia. MUSCULOSKELETAL: Negative for pain, swelling. NEUROLOGIC/PSYCHIATRIC: Negative for anxiety, depression. ALLERGY/IMMUNOLOGIC: Negative for skin rash, bleeding tendency. PHYSICAL EXAMINATION: GENERAL: This is an obese female, in no apparent distress. VITAL SIGNS: Temperature 98.7, pulse 87, respirations 16, blood pressure 122/67. HEENT: Atraumatic, normocephalic. Oral mucosa is moist. NECK: Supple. CARDIOVASCULAR: S1 and S2 heard. Rate and rhythm regular. RESPIRATORY: Clear. GASTROINTESTINAL: Abdomen is soft. MUSCULOSKELETAL: No tenderness. No edema. DERMATOLOGIC: No skin rash. NEUROLOGIC: Alert and awake. PSYCHIATRIC: Mood and affect normal. LABORATORY DATA: Hemoglobin is 12.1. Potassium is 5.7, sodium 120, BUN is 51, creatinine is 1.5. ASSESSMENT AND PLAN: 1. Acute kidney injury, most likely secondary to cardiorenal syndrome and volume depletion. 2. Hyponatremia, slightly corrected for hyperglycemia. 3. Hyperkalemia. We will give a dose of Kayexalate. 4. Shortness of breath is better. 5. Leukocytosis. 6. Edema, controlled. 7. History of hypertension, stable. 8. We will give a dose of Kayexalate. Agree with holding nephrotoxic including lisinopril and triamterene/hydrochlorothiazide for now. We will monitor. Avoid nephrotoxins and contrast and renally dose all medications. We will continue to follow the labs. Thank you for the consult. Job ID: [id number]
[2019-03-01] MEDS ORDERED: Sodium Chloride 0.9% 10 ML ONE ×2 (00:09→04:26)
[2019-03-01] MEDS: Ketorolac Tromethamine 30 MG/ML VIAL IVP SCH ×4 (00:13→17:30)
[2019-03-01] MEDS: methylPREDNISolone Sod Succ 40 MG VIAL IVP SCH ×4 (00:14→17:31)
[2019-03-01 05:28] LABS: Hemoglobin A1c 6.9 % (4.0-6.0)
[2019-03-01 05:42] LABS: Anion Gap 14 mmol/L (10-20); BUN (Urea Nitrogen) 51 mg/dL (9.8-20.1); Calc. Creatinine Clearance 51 mL/min (70-130); Calcium 8.6 mg/dL (7.8-10.44); Carbon Dioxide 22 mmol/L (23-31); Chloride 101 mmol/L (98-107); Estimated GFR-MDRD 32; Glucose 290 mg/dL (83-110); Potassium 4.8 mmol/L (3.5-5.1); Sodium 132 mmol/L (136-145)
[2019-03-01] MEDS: Levothyroxine Sodium 75 MCG TAB PO SCH (05:53)
[2019-03-01] MEDS: Phenergan/Codeine 10-6.25mg/5ml UDCUP PO PRN ×2 (05:56→22:35)
[2019-03-01] MEDS: Budesonide 0.5 MG/2 ML NEB INH SCH ×2 (07:11→18:36)
[2019-03-01] MEDS: Arformoterol 15 MCG/2 ML NEB NEB SCH ×2 (07:11→18:37)
[2019-03-01] MEDS ORDERED: Furosemide 40 MG/4 ML VIAL SLOW IVP SCH (09:00)
[2019-03-01] MEDS: Guaifenesin DM 100-10/5 ML UDCUP PO PRN ×2 (09:32→15:55)
--- NOTE | 2019-03-01 09:53 | PRG ---
DATE OF SERVICE: 03/01/2019 SUBJECTIVE: The patient says she feels better this morning. She slept after taking some codeine cough syrup. OBJECTIVE: VITAL SIGNS: Temperature 97.8, pulse 101, respirations 16, O2 saturation 96% on room air, and blood pressure 136/64. HEENT: Showed no abnormalities. NECK: No JVD. LUNGS: Diffuse mild wheezing. CARDIAC: S1 and S2, regular with 2/6 systolic murmur. ABDOMEN: Soft. EXTREMITIES: No edema. LABORATORY DATA: Sodium 132, potassium 4.8, chloride 101, CO2 of 22, BUN 51, creatinine 1.6, and glucose 290. BNP is 314. ASSESSMENT: 1. Asthmatic bronchitis. 2. Mitral stenosis. 3. Acute renal insufficiency. PLAN: 1. Continue steroids, nebulization treatments, Singulair, antibiotics, and inhaled steroids. 2. Continue diuresis. 3. Await results of 2nd echocardiogram. Job ID: [id number]
[2019-03-01] MEDS: HumaLOG 300 UNITS/3 ML VIAL SC PRN ×3 (10:38→22:58)
--- NOTE | 2019-03-01 10:49 | PRG ---
DATE OF SERVICE: 03/01/2019 SUBJECTIVE: Patient was seen and examined at bedside and overnight events noted. Patient denies any shortness of breath or chest pain or palpitation. No history of nausea or vomiting or diarrhea or fever or chills or cramps. OBJECTIVE: GENERAL: This is an obese female, in no acute distress. VITAL SIGNS: Temperature 97.8. Heart rate 101. Respiratory rate 16. Blood pressure 136/64. HEENT: Atraumatic, normocephalic. Oral mucosa is moist NECK: Supple. CARDIOVASCULAR: S1, S2 heard. Rate and rhythm regular. RESPIRATORY: Clear to auscultation. GASTROINTESTINAL: Abdomen is soft. MUSCULOSKELETAL: No tenderness. No edema. DERMATOLOGIC: No skin rash. NEUROLOGIC: Alert and awake and oriented X3. No focal neurologic deficits. Moving all the extremities. PSYCHIATRIC: Mood and affect normal. LABORATORY DATA: Potassium 4.8, sodium is 132, BUN is 51, creatinine is 1.6, glucose 290. A1c 6.9. ASSESSMENT AND PLAN: 1. Acute kidney injury on chronic kidney stage 3 with stable creatinine. 2. Hyperkalemia, better. 3. Acidosis. 4. Edema, controlled. 5. Hypertension, stable. Labs are stable. We will follow. Potassium level is better. Job ID: [id number]
[2019-03-01] MEDS: Insulin Glargine 20 UNITS in Pre-Filled Syringe 1 EACH SC SCH (11:17)
[2019-03-01] MEDS ORDERED: Senokot 8.6 MG TAB PO PRN (13:56)
--- NOTE | 2019-03-01 16:50 | PDOC.HOSPP ---
- Subjective Encounter Date: 03/01/19 Encounter Time: 16:45 Subjective: f/u for asthmatic bronchitis, tachycardia. Feels better overall and less SOB with ambulating. - Objective Vital Signs & Weight: Vital Signs (12 hours) Temp Pulse Resp BP Pulse Ox 03/01/19 15:23 98.1 F 114 H 20 130/61 95 03/01/19 14:14 109 H 16 03/01/19 11:54 98.5 F 108 H 20 129/62 95 03/01/19 11:34 107 H 20 03/01/19 07:12 96 03/01/19 07:10 97.8 F 101 H 16 136/64 97 Weight Weight 223 lb 3.2 oz I&O: 02/28/19 03/01/19 03/02/19 06:59 06:59 06:59 Intake Total 1148 Output Total 300 750 Balance -300 398 Result Diagrams: 02/25/19 20:54 03/01/19 04:50 Additional Labs: Accuchecks 03/01/19 03/01/19 02/28/19 10:27 05:47 20:21 POC Glucose 496 H 296 H 389 H 02/28/19 17:52 POC Glucose 367 H Microbiology 02/25/19 23:50 Nasal swab Influenza Types A,B Direct EIA - Final 02/25/19 21:28 Venous blood - Right Arm Blood Culture - Preliminary Specimen has been received and culture in progress. No Growth to date. 02/25/19 21:24 Venous blood - Left Arm Blood Culture - Preliminary Specimen has been received and culture in progress. No Growth to date. Laboratory Tests 02/25/19 02/25/19 02/25/19 20:54 20:54 20:54 Sodium 137 Potassium 4.7 BUN 22 H Creatinine 1.01 B-Natriuretic Peptide 219.1 H Procalcitonin 0.03 Free T4 TSH 3rd Generation 02/27/19 02/27/19 03:52 13:53 Sodium 127 L Potassium 5.7 H BUN 43 H Creatinine 1.76 H B-Natriuretic Peptide Procalcitonin Free T4 0.85 TSH 3rd Generation 0.2960 L EKG Reviewed by me: Yes (Tele - Sinus tachycardia) Hospitalist ROS - Medication Medications: Active Medications Generic Name Dose Route Start Last Admin Trade Name Freq PRN Reason Stop Dose Admin Albuterol/Ipratropium 3 ml 02/26/19 02:30 03/01/19 14:14 Duoneb NEB 3 ml [id number] TONYA Administration Alogliptin Benzoate 25 mg 02/26/19 21:00 02/28/19 21:20 Alogliptin PO 25 mg HS TONYA Administration Arformoterol Tartrate 15 mcg 02/28/19 18:30 03/01/19 07:11 Brovana NEB 15 mcg BID-RT TONYA Administration Aspirin 81 mg 02/26/19 21:00 02/28/19 20:31 Ecotrin PO 81 mg HS TONYA Administration Benzonatate 100 mg 02/26/19 02:49 02/27/19 16:58 Tessalon PO 100 mg Q4H PRN Administration Cough Budesonide 0.5 mg 02/28/19 18:30 03/01/19 07:11 Pulmicort Neb Solution INH 0.5 mg BID-RT TONYA Administration Calcium Carbonate 500 mg 02/27/19 23:29 02/28/19 00:12 Tums PO 500 mg QID PRN Administration INDIGESTION Docusate Sodium 100 mg 02/26/19 21:00 02/28/19 20:31 Colace PO 100 mg HS TONYA Administration Guaifenesin/Dextromethorphan 10 ml 02/28/19 13:30 03/01/19 15:55 Robitussin Dm PO 10 ml Q6H PRN Administration Cough Insulin Glargine 20 units/ 0.2 mls @ 0 mls/hr 02/26/19 12:00 03/01/19 11:17 Miscellaneous Medication SC 0.2 mls 1200 TONYA Administration Insulin Human Lispro 0 units 02/26/19 18:54 03/01/19 16:45 Humalog SC 13 unit .AGGRESSIVE SLIDING PRN Administration AGGRESSIVE SLIDING SCALE Protocol Ketorolac Tromethamine 30 mg 02/26/19 18:00 03/01/19 11:16 Toradol IVP 03/03/19 18:01 30 mg Q6HR TONYA Administration Levofloxacin 500 mg 02/27/19 06:00 03/01/19 05:53 Levaquin PO 500 mg 0600 TONYA Administration Levothyroxine Sodium 75 mcg 02/26/19 06:00 03/01/19 05:53 Synthroid PO 75 mcg 0600 TONYA Administration Lisinopril 20 mg 02/26/19 21:00 02/26/19 20:58 Zestril PO 20 mg HS TONYA Administration Methylprednisolone Sodium Succinate 20 mg 02/27/19 18:00 03/01/19 11:16 Solu-Medrol IVP 20 mg Q6HR TONYA Administration Montelukast Sodium 10 mg 02/28/19 21:00 02/28/19 20:31 Singulair PO 10 mg QPM TONYA Administration Promethazine HCl/Codeine 5 ml 02/27/19 14:04 03/01/19 05:56 Phenergan/Codeine Syrup PO 5 ml Q4H PRN Administration Cough Senna 2 tab 03/01/19 13:56 03/01/19 14:22 Senokot PO 2 tab BIDPRN PRN Administration Constipation Simvastatin 80 mg 02/26/19 21:00 02/28/19 20:31 Zocor PO 80 mg HS TONYA Administration Tramadol HCl 50 mg 02/26/19 03:30 02/27/19 16:59 Ultram PO 50 mg Q6H PRN Administration Mild-Moderate Pain (1-5) Venlafaxine HCl 150 mg 02/26/19 21:00 02/28/19 20:31 Effexor Xr PO 150 mg HS TONYA Administration - Exam General Appearance: NAD, awake alert Eye: PERRL, anicteric sclera ENT: normocephalic atraumatic, no oropharyngeal lesions Neck: supple, symmetric, no JVD, no thyromegaly, no lymphadenopathy Heart: no gallops, no rubs, normal peripheral pulses Heart - other findings: tachycardic Respiratory: no rales, no ronchi Respiratory - other findings: minimal wheezes, diminished in bases Gastrointestinal: soft, non-tender, non-distended, normal bowel sounds, no palpable masses Extremities: no cyanosis, no clubbing, no edema Skin: normal turgor, no lesions Neurological: cranial nerve grossly intact, no new deficit Musculoskeletal: normal tone, normal strength Psychiatric: normal affect, A&O x 3 Hosp A/P (1) Bronchitis, acute, with bronchospasm Code(s): J20.9 - ACUTE BRONCHITIS, UNSPECIFIED Status: Acute Plan: Improved, continue current pulmonary support with Duonebs, Solumedrol, Dulera (2) Dyspnea Code(s): R06.00 - DYSPNEA, UNSPECIFIED Status: Acute Plan: Improved overall, continue mgmt as outlined in #1 (3) JAYJAY (acute kidney injury) Code(s): N17.9 - ACUTE KIDNEY FAILURE, UNSPECIFIED Status: Acute Plan: Improved, avoid nephrotoxic meds and limit contrast exposure (4) Hyperkalemia Code(s): E87.5 - HYPERKALEMIA Status: Acute Plan: Resolved, monitor serial K+ (5) Pleural effusion Code(s): J90 - PLEURAL EFFUSION, NOT ELSEWHERE CLASSIFIED Status: Acute (6) Chest wall pain Code(s): R07.89 - OTHER CHEST PAIN Status: Acute (7) Mass of left lower extremity Code(s): R22.42 - LOCALIZED SWELLING, MASS AND LUMP, LEFT LOWER LIMB Status: Acute Plan: Outpt MRI when stabilized (8) Hyponatremia Code(s): E87.1 - HYPO-OSMOLALITY AND HYPONATREMIA Status: Acute Plan: Improved (9) Sinus tachycardia Code(s): R00.0 - TACHYCARDIA, UNSPECIFIED Status: Acute Plan: Persistent, likely due to beta-agonist and asthmatic bronchitis - Plan continue antibiotics, socially responsible investment adviser, respiratory therapy, DVT proph w/SCDs Stable overall Hold Lasix due to JAYJAY Levaquin 500mg po daily Continue Duonebs/Solumedrol 2D echo with EF 60-65%, awaiting repeat interpretation due to limited windows on initial echo MRI of LLE when renal fxn stabilizes Add Singulair 10mg daily Consult Nephrology/Pulmonology/Cardiology AM lab: BMP Likely home in 24h
[2019-03-01] MEDS ORDERED: Magnesium Citrate 300 ML BOT PO SCH (17:15)
--- NOTE | 2019-03-01 18:45 | PDOC.CPN ---
- Subjective Date: 03/01/19 Time: 18:42 Interval history: She is feeling much better. Breathing is better. - Review of Systems General: denies: fever/chills, weight/appetite/sleep changes, night sweats, fatigue Respiratory: denies: cough, congestion, shortness of breath, exercise intolerance Cardiovascular: denies: chest pain, palpitation, edema, paroxysmal nocturnal dyspnea, orthopnea Gastrointestinal: denies: nausea, vomiting, diarrhea, constipation, abd pain, GI bleeding Musculoskeletal: denies: pain, tenderness, stiffness, swelling, arthritis/ arthralgias Neurological: denies: numbness, syncope, seizure, weakness - Objective Allergies/Adverse Reactions: Allergies Allergy/AdvReac Type Severity Reaction Status Date / Time No Known Allergies Allergy Verified 02/26/19 02:18 Visit Medications: Current Medications Albuterol/Ipratropium (Duoneb) 3 ml NEB [id number] TONYA Last Admin: 03/01/19 18:36 Dose: 3 ml Albuterol/Ipratropium (Duoneb) 3 ml NEB [id number] PRN PRN Reason: SOB &/or Wheezing Alogliptin Benzoate (Alogliptin) 25 mg PO HS TONYA Last Admin: 02/28/19 21:20 Dose: 25 mg Alprazolam (Xanax) 1 mg PO HS PRN PRN Reason: Insomnia Arformoterol Tartrate (Brovana) 15 mcg NEB BID-RT TONYA Last Admin: 03/01/19 18:37 Dose: 15 mcg Aspirin (Ecotrin) 81 mg PO HS TONYA Last Admin: 02/28/19 20:31 Dose: 81 mg Benzonatate (Tessalon) 100 mg PO Q4H PRN PRN Reason: Cough Last Admin: 02/27/19 16:58 Dose: 100 mg Bisacodyl (Dulcolax) 10 mg RI Q8HR TONYA Budesonide (Pulmicort Neb Solution) 0.5 mg INH BID-RT TONYA Last Admin: 03/01/19 18:36 Dose: 0.5 mg Calcium Carbonate (Tums) 500 mg PO QID PRN PRN Reason: INDIGESTION Last Admin: 02/28/19 00:12 Dose: 500 mg Dextrose/Water (Dextrose 50%) 25 gm SLOW IVP PRN PRN PRN Reason: Hypoglycemia Docusate Sodium (Colace) 100 mg PO HS [facility] Last Admin: 02/28/19 20:31 Dose: 100 mg Glucagon (Glucagon) 1 mg IM PRN PRN PRN Reason: Hypoglycemia Guaifenesin/Dextromethorphan (Robitussin Dm) 10 ml PO Q6H PRN PRN Reason: Cough Last Admin: 03/01/19 15:55 Dose: 10 ml Dextrose/Water (D5w) 1,000 mls @ 0 mls/hr IV .Q0M PRN PRN Reason: Hypoglycemia Insulin Glargine 20 units/ (Miscellaneous Medication) 0.2 mls @ 0 mls/hr SC 1200 TONYA Last Admin: 03/01/19 11:17 Dose: 0.2 mls Insulin Human Lispro (Humalog) 0 units SC .AGGRESSIVE SLIDING PRN; Protocol PRN Reason: AGGRESSIVE SLIDING SCALE Last Admin: 03/01/19 16:45 Dose: 13 unit Ketorolac Tromethamine (Toradol) 30 mg IVP Q6HR [facility] Stop: 03/03/19 18:01 Last Admin: 03/01/19 17:30 Dose: 30 mg Levofloxacin (Levaquin) 500 mg PO 0600 [facility] Last Admin: 03/01/19 05:53 Dose: 500 mg Levothyroxine Sodium (Synthroid) 75 mcg PO 0600 [facility] Last Admin: 03/01/19 05:53 Dose: 75 mcg Lisinopril (Zestril) 20 mg PO HS [facility] Last Admin: 02/26/19 20:58 Dose: 20 mg Magnesium Citrate (Citrate Of Magnesia 300 Ml Bot) 300 ml PO NOW [facility] Stop: 03/01/19 19:15 Last Admin: 03/01/19 17:30 Dose: 300 ml Methylprednisolone Sodium Succinate (Solu-Medrol) 20 mg IVP Q6HR [facility] Last Admin: 03/01/19 17:31 Dose: 20 mg Montelukast Sodium (Singulair) 10 mg PO QPM [facility] Last Admin: 02/28/19 20:31 Dose: 10 mg Linaclotide [Linzess (] 145 Mcg) 145 each PO HS [facility] Liraglutide [Victoza (2-Butch] 1.2 Mg)) 1.2 each SC [facility] Promethazine HCl/Codeine (Phenergan/Codeine Syrup) 5 ml PO Q4H PRN PRN Reason: Cough Last Admin: 03/01/19 05:56 Dose: 5 ml Senna (Senokot) 2 tab PO BIDPRN PRN PRN Reason: Constipation Last Admin: 03/01/19 14:22 Dose: 2 tab Simvastatin (Zocor) 80 mg PO HS [facility] Last Admin: 02/28/19 20:31 Dose: 80 mg Sodium Chloride (Flush - Normal Saline) 10 ml IVF Q12HR TONYA Sodium Chloride (Flush - Normal Saline) 10 ml IVF PRN PRN PRN Reason: Saline Flush Tramadol HCl (Ultram) 50 mg PO Q6H PRN PRN Reason: Mild-Moderate Pain (1-5) Last Admin: 02/27/19 16:59 Dose: 50 mg Venlafaxine HCl (Effexor Xr) 150 mg PO [facility] Last Admin: 02/28/19 20:31 Dose: 150 mg Vital Signs & Weight: Vital Signs Temp Pulse Resp BP Pulse Ox 03/01/19 18:36 108 H 18 99 03/01/19 15:23 98.1 F 114 H 20 130/61 95 03/01/19 14:14 109 H 16 03/01/19 11:54 98.5 F 108 H 20 129/62 95 03/01/19 11:34 107 H 20 03/01/19 07:12 96 03/01/19 07:10 97.8 F 101 H 16 136/64 97 Weight 223 lb 3.2 oz - Physical Exam General: alert & oriented x3, no apparent distress HEENT: mucus membranes moist Neck: supple neck Cardiac: regular rate and rhythm, systolic murmur Lungs: wheezes Neuro: grossly intact Abdomen: active bowel sounds Extremities: no cyanosis, no clubbing, no edema Skin: clear Musculoskeletal: no pain - Labs Result Diagrams: 02/25/19 20:54 03/01/19 04:50 Troponin/CKMB Troponin I Less than 0.010 ng/mL (< 0.028) 02/26/19 03:24 - Telemetry Sinus rhythms and dysrhythmias: sinus rhythm - Assessment/Plan Assessment/Plan: 1. Mild mitral stenosis 2. Bronchial sthma 3. Viral illness. 4. Acute on chronic diastolic heart failure. PLAN: - Continue pulmonary toilet. - Mitral stenosis is mild and not causing significant volume overload. - Already received a dose of lasix and feels better. - CV stable. - Will sign off. Please call with any questions. - Will see in office in 4-6 wks.
[2019-03-01] MEDS: Bisacodyl 10 MG SUPP PR SCH (22:29)
[2019-03-01] MEDS: Aspirin 81 mg Enteric Coated Tablet PO SCH (22:29)
[2019-03-01] MEDS: Docusate 100 MG CAP PO SCH (22:29)
[2019-03-01] MEDS: Lisinopril 20 MG TAB PO SCH (22:29)
[2019-03-01] MEDS: Alogliptin 25 MG TAB PO SCH (22:29)
[2019-03-01] MEDS: Simvastatin 40 MG TAB PO SCH (22:30)
[2019-03-01] MEDS: Montelukast Sodium 10 mg Tablet PO SCH (22:30)
[2019-03-01] MEDS: Venlafaxine HCl XR 150 MG CAP PO SCH (22:30)
[2019-03-02] MEDS: methylPREDNISolone Sod Succ 40 MG VIAL IVP SCH ×3 (00:52→11:47)
[2019-03-02] MEDS: Ketorolac Tromethamine 30 MG/ML VIAL IVP SCH ×3 (00:53→11:45)
[2019-03-02 05:00] LABS: Anion Gap 12 mmol/L (10-20); BUN (Urea Nitrogen) 48 mg/dL (9.8-20.1); Calc. Creatinine Clearance 55 mL/min (70-130); Calcium 8.7 mg/dL (7.8-10.44); Carbon Dioxide 29 mmol/L (23-31); Chloride 97 mmol/L (98-107); Estimated GFR-MDRD 34; Glucose 352 mg/dL (83-110); Potassium 4.8 mmol/L (3.5-5.1); Sodium 133 mmol/L (136-145)
[2019-03-02] MEDS: HumaLOG 300 UNITS/3 ML VIAL SC PRN ×3 (05:55→18:27)
[2019-03-02] MEDS: Levothyroxine Sodium 75 MCG TAB PO SCH (05:55)
[2019-03-02] MEDS: Bisacodyl 10 MG SUPP PR SCH ×2 (05:55→14:22)
[2019-03-02] MEDS: Phenergan/Codeine 10-6.25mg/5ml UDCUP PO PRN ×2 (06:01→14:22)
[2019-03-02] MEDS: Budesonide 0.5 MG/2 ML NEB INH SCH (07:30)
[2019-03-02] MEDS: Arformoterol 15 MCG/2 ML NEB NEB SCH (07:51)
--- NOTE | 2019-03-02 09:54 | PRG ---
DATE OF SERVICE: 03/02/2019 SUBJECTIVE: The patient is doing much better, had no acute complaints. OBJECTIVE: VITAL SIGNS: Temperature 98.2, pulse 98, blood pressure 121/61, O2 saturation 97% on room air. HEENT: Unremarkable. NECK: No adenopathy or JVD. LUNGS: She had clear lung tatum without wheezing. CARDIAC: S1, S2. Regular. ABDOMEN: Soft. EXTREMITIES: No edema. LABORATORY DATA: Sodium 133, potassium 4.8, chloride 97, CO2 of 29, BUN 48, creatinine 1.5, glucose 352. White blood cell count 10.9, hematocrit 36.6, and platelet count 209. ASSESSMENT: 1. Asthmatic bronchitis with exacerbation. 2. Mild mitral stenosis. 3. Some component of diastolic dysfunction at the time of admission. 4. Renal insufficiency. 5. Diabetes mellitus. PLAN: From my standpoint, she is okay to go home. I would wean her steroids over a period of a week or two and complete about 7 days of antibiotics. She can follow up with me in 3-4 weeks. Job ID: [id number]
[2019-03-02] MEDS: Insulin Glargine 20 UNITS in Pre-Filled Syringe 1 EACH SC SCH (11:44)
--- NOTE | 2019-03-02 12:09 | PRG ---
DATE OF SERVICE: 03/02/2019 SUBJECTIVE: Patient was seen and examined at bedside and overnight events noted. Patient denies any shortness of breath or chest pain or palpitation. No history of nausea or vomiting or diarrhea or fever or chills or cramps. OBJECTIVE: GENERAL: This is a , in no acute distress. VITAL SIGNS: Temperature 98.3. Heart rate 100. Respiratory rate 19. Blood pressure 118/61. HEENT: Atraumatic, normocephalic. Oral mucosa is moist NECK: Supple. CARDIOVASCULAR: S1, S2 heard. Rate and rhythm regular. RESPIRATORY: Clear to auscultation. GASTROINTESTINAL: Abdomen is soft. MUSCULOSKELETAL: No tenderness. No edema. DERMATOLOGIC: No skin rash. NEUROLOGIC: Alert and awake and oriented X3. No focal neurologic deficits. Moving all the extremities. PSYCHIATRIC: Mood and affect normal. LABORATORY DATA: Potassium is 4.8, BUN is 48, and creatinine is 1.5. ASSESSMENT/PLAN: 1. Acute kidney injury on chronic kidney disease stage 3, stable. 2. Edema, controlled. 3. Hypertension. 4. Hyperkalemia. 5. Anemia. Labs are stable. Avoid nephrotoxins. Job ID: [id number]
[2019-03-02 17:03] VITALS: BP 133/67; TEMP 97.8
[2019-03-02] MEDS ORDERED: methylPREDNISolone 4 mg Tablet PO SCH (18:15)
[2019-03-03] MEDS ORDERED: methylPREDNISolone 4 mg Tablet PO SCH (09:00)
--- NOTE | 2019-03-03 14:29 | EKG ---
Test Reason : Blood Pressure : / mmHG Vent. Rate : 104 BPM Atrial Rate : 104 BPM P-R Int : 154 ms QRS Dur : 106 ms QT Int : 344 ms P-R-T Axes : 038 045 010 degrees QTc Int : 452 ms Sinus tachycardia Incomplete right bundle branch block Borderline ECG Confirmed by JANN ANDERSON, AMANDA ([id number]), assignment desk editor OMI PEREZ ([id number] on 03/03/2019 2:28:52 PM Referred By: Confirmed By:AMANDA FORTE MD
--- NOTE | 2019-03-03 17:31 | DIS ---
DATE OF ADMISSION: 02/26/2019 DATE OF DISCHARGE: 03/02/2019 ADMITTING DIAGNOSES: Acute asthma with exacerbation, small bilateral pleural effusions, acute chest pain. DISCHARGE DIAGNOSES: Acute asthma exacerbation, acute diastolic congestive heart failure, acute kidney injury, hyponatremia, hyperkalemia, diabetes, hypertension , history of colon cancer. CONSULTATIONS: Critical Care with Dr. Brito; Cardiology with Dr. Rogelio Rey; Nephrology, Dr. Savannah Donnelly. PROCEDURES: None. BRIEF HPI: This is a 73-year-old female with a past medical history of asthma, CHF, mitral valve stenosis, colon cancer, who had presented to the ER with shortness of breath and chest pain that were started in the morning. She had used her nebulizer without improvement and had noticed a temperature of 101 and a sore throat. The patient also started wheezing and had 4 episodes of diarrhea. The patient was admitted for asthma exacerbation and given IV steroids and DuoNeb's, and admitted for further HOSPITAL COURSE: Acute hypoxic respiratory failure secondary to asthma exacerbation and acute diastolic CHF: Initially, the patient had a chest x-ray on admission, which had showed no acute disease. She had a CTA, which showed no acute PE; however, there were some bilateral pleural effusions that were larger on the right. The patient was initially treated with Levaquin, Solu-Medrol, DuoNeb's, and Robitussin. However , due to persistent symptoms, she was given a dose of IV Lasix for her pleural effusion. She had a 2D echo on 02/27, which showed an EF of 60% to 65% with diastolic dysfunction. Repeat echo on 03/01 showed severe mitral annular calcification and no rmal LV function. The patient had a consultation with Pulmonology, Dr. Brito, who recommended continuing with steroids and nebulization treatment. Dr. Rey from Cardiology was consulted as well for the patient's mitral stenosis and they felt that it was mild and not causing significant volume overload. The patient was weaned from 1 L nasal cannula to room air. She was discharged with 3 more days of Levaquin to complete a 7-day course, and a prednisone taper of 40 mg of prednisone for 3 days, then 30 mg for 3 days, then 20 mg for 3 days, and then to discontinue. She was not discharged on Lasix since her creatinine was improving after the Lasix was stopped and she appeared euvolemic on exam. She was advised to follow up with Dr. Rey on April [address] Brito on April 17 and check daily weights. She was also started on Singulair for her asthma and was started on Advair twice daily to prevent asthma exacerbations. Left leg mass: The patient was noted to have a 1.4 cm calcification seen on her x-ray. The patient was told to get an MRI as an outpatient of her left leg. Type 2 diabetes: The patient's blood sugars were elevated 300 to 400. This is most likely from the steroids that she was receiving. She was advised to resume her Tresiba and her linagliptin and liraglutide on discharge and monitor her blood sugars at home. GERD: The patient requested Tums was discharged with calcium carbonate p.r.n. Chest wall pain: The patient was noted to have some chest wall pain from her asthma exacerbation. She did not have any signs of ischemia on her echo and her troponins were normal x3. She was given a prescription for tramadol p.r.n. given that we cannot prescribe NSAIDs due to her kidney injury. Acute kidney injury: The patient had a creatinine of 1.01 on admission. This increased to 1.76 on 02/27, after the patient received Lasix. Her creatinine came down to 1.51, on the day of discharge. Lisinopril was resumed since the patient's creatinine was downtrending with this; however, she should have a repeat BMP as an outpatient. Hyponatremia: The patients sodium was 133 on the day of discharge. Repeat BMP should be done as outpatient Leukocytosis: The patient had a white count of 10.9 on 02/25. This should be rechecked as an outpatient. Hyperkalemia: The patient had a potassium of 6.3 on 02/27. The patient received IV Lasix and fluids and her potassium eventually normalized on the day of discharge to 4.8. Chronic Problems #Hypothyroidism: Continue levothyroxine. #Hyperlipidemia: Continue simvastatin. #Depression: Continue Effexor. All other home medications were continued including aspirin. The patient was also prescribed a rolling walker. DISCHARGE PHYSICAL EXAMINATION: VITAL SIGNS 03/02/2019: Temperature 97.8, pulse 106, respiratory rate 16, O2 saturation 94% on room air, blood pressure 133/67. GENERAL: Alert, awake, and oriented x3. CVS: Regular rate and rhythm. No murmurs, rubs, or gallops. LUNGS: Clear to auscultation bilaterally. ABDOMEN: Soft, nontender, nondistended. Positive bowel sounds. EXTREMITIES: No edema. PERTINENT LABORATORY DATA: CBC 02/25/2019: White blood cell count 10.9. BMP 03/02/19: Sodium 133, chloride 97, potassium 4.8, BUN 49, creatinine 1.51, glucose 352. TSH: 0.2960. Free T4: 0.5. LFTs: AST 18, ALT 12, ALP 76. Hemoglobin A1c: 6.9. PERTINENT IMAGING STUDIES: Chest x-ray 02/25/2019: No acute disease. CT thorax 02/25/2019: Bilateral pleural effusions, no acute PE, old granulomatous calcifications in the right hilum. Tibial/fibular x-ray 02/26/2019: There is an oval calcification overlying the medial femoral condyle, which could represent an intra-articular loose body measuring 1.4 cm in transverse dimension. Given history of mass lesion, MRI advised with and without contrast. DISCHARGE CONDITION: Stable. ACTIVITY: As tolerated. DIET: Heart healthy diet. DISCHARGE INSTRUCTIONS and FOLLOW UP: The patient was advised to check her weights daily and consider resuming her hydrochlorothiazide that she takes at home if needed, if her legs start getting swollen or chest gets congested and her blood pressure is elevated. Otherwise, hold off. The patient was started on Singulair, Advair. Her hydrochlorothiazide was discontinued. She should follow up with her PCP in a week. She should follow up with Dr. Brito, April 17; Dr. Donnelly on March 09; and Dr. Rey on April 04. She needs to get a repeat MRI on her left leg as an outpatient. DISCHARGE MEDICATIONS: 1. Albuterol sulfate two puffs inhalation q.4 hours p.r.n. 2. Aspirin 81 mg p.o. at bedtime. 3. Tessalon Perles 100 mg p.o. q.4 hours p.r.n. 4. Tums 500 mg q.i.d. p.r.n. 5. Docusate 100 mg p.o. at bedtime. 6. Advair 1 inhalation b.i.d. 7. Guaifenesin 10 mL p.o. q.6 hours p.r.n. 8. Humalog aggressive sliding scale, see prescription for details. 9. Insulin degludec 20 units subcu 12 p.m. 10. Levaquin 500 mg p.o. daily three tablets. 11. Levothyroxine 75 mcg p.o. daily. 12. Linaclotide 145 mcg p.o. at bedtime. 13. Linagliptin 5 mg p.o. daily. 14. Victoza 1.2 mg subcu at bedtime. 15. Lisinopril 20 mg p.o. at bedtime. 16. Montelukast 10 mg p.o. q.p.m. 17. Prednisone 10 mg p.o. as directed. 18. Simvastatin 80 mg p.o. at bedtime. 19. Tramadol 50 mg p.o. q.6 hours p.r.n. 20. Effexor 150 mg p.o. at bedtime. Job ID: [id number] MTDD
== END 2019-03-02 19:25 | disposition home or self-care (01) | DRG 291 ==
LOC: ERS 20:34 → 2SW 02-26 00:12 → OBSVTOIN 02-26 00:12 → 2NO 02-27 21:43
PROVIDERS: ADMIT Internal Medicine; ATTEND Internal Medicine
DX: I13.0 Hypertensive heart and chronic kidney disease with heart failure and stage 1 through stage 4 chronic kidney disease, or unspecified chronic kidney disease (principal); I50.31 Acute diastolic (congestive) heart failure; J96.01 Acute respiratory failure with hypoxia; J45.901 Unspecified asthma with (acute) exacerbation; N17.9 Acute kidney failure, unspecified; E87.2 Acidosis; E87.1 Hypo-osmolality and hyponatremia; J44.1 Chronic obstructive pulmonary disease with (acute) exacerbation; E78.5 Hyperlipidemia, unspecified; I05.0 Rheumatic mitral stenosis; E11.22 Type 2 diabetes mellitus with diabetic chronic kidney disease; N18.3 Chronic kidney disease, stage 3 (moderate); D63.1 Anemia in chronic kidney disease; E87.5 Hyperkalemia; R22.42 Localized swelling, mass and lump, left lower limb; K21.9 Gastro-esophageal reflux disease without esophagitis; T38.0X5A Adverse effect of glucocorticoids and synthetic analogues, initial encounter; E03.9 Hypothyroidism, unspecified; F32.9 Major depressive disorder, single episode, unspecified; E66.9 Obesity, unspecified; Z85.3 Personal history of malignant neoplasm of breast; Z85.038 Personal history of other malignant neoplasm of large intestine; Z90.49 Acquired absence of other specified parts of digestive tract; Z90.13 Acquired absence of bilateral breasts and nipples; Z68.39 Body mass index [BMI] 39.0-39.9, adult
CPT/HCPCS: 36415; 36416; 71045; 71275; 80048; 80053; 81003; 81015; 83036; 83690; 83880; 84145; 84439; 84443; 84484; 85025; 87040; 87633; 87804; 93005; 93306; 94640; 96365; 96375; J0696; J1815; J1885; J1940; J2212; J2920; J2930; J7620; J7626

== ENCOUNTER 2019-09-28 11:37 | Emergency (ER) | payer MEDICARE ==
[~2019-09-28 11:37] MED LIST: Iopamidol-370 76% 500 ML 1 ML ONE
[2019-09-28 12:28] LABS: #Basophils 0.1 thou/uL (0.0-0.2); #Eosinphils 1.8 thou/uL (0.0-0.7); #Lymphocytes 2.3 thou/uL (1.20-3.40); #Monocytes 0.7 thou/uL (0.11-0.59); #Neutrophils 6.4 thou/uL (1.40-6.50); %Basophils 0.5 % (0.0-1.0); %Lymphocytes 20.4 % (21.0-51.0); %Monocytes 5.8 % (0.0-10.0); %Neutrophils 57.3 % (42.0-75.0); Mean Corpuscular HGB CONC 32.4 g/dL (32.0-36.0); Mean Corpuscular Hemoglobin 29.8 pg (27.0-31.0); Mean Corpuscular Volume 91.8 fL (78.0-98.0); Mean Platelet Volume 7.2 fL (7.4-10.4); Platelet Count 205 thou/uL (130-400); RBC Distribution Width 12.9 % (11.5-14.5); Red Blood Cell (RBC) Count 4.38 mill/uL (4.20-5.40); White Blood Cell (WBC) Count 11.2 thou/uL (4.8-10.8)
[2019-09-28] MEDS ORDERED: Ondansetron PF 4 MG/2 ML Vial ONE (12:50)
[2019-09-28] MEDS ORDERED: Morphine 4 MG/ML VIAL ONE (12:50)
[2019-09-28 13:00] LABS: ALT (SGPT) 18 U/L (8-55); AST (SGOT) 19 U/L (5-34); Albumin 3.7 g/dL (3.4-4.8); Alkaline Phosphatase 75 U/L (40-110); Anion Gap 12 mmol/L (10-20); BUN (Urea Nitrogen) 31 mg/dL (9.8-20.1); Bilirubin, Total 0.6 mg/dL (0.2-1.2); Calc. Creatinine Clearance 0 mL/min (70-130); Calcium 9.1 mg/dL (7.8-10.44); Carbon Dioxide 24 mmol/L (23-31); Chloride 104 mmol/L (98-107); Estimated GFR-MDRD 49; Glucose 131 mg/dL (83-110); Lipase 38 U/L (8-78); Protein, Total 6.7 g/dL (6.0-8.3); Sodium 135 mmol/L (136-145)
[2019-09-28 13:22] LABS: Bilirubin Negative (Negative); Blood, Urine Negative (Negative); Clarity Clear (Clear); Glucose, Urine (Dipstick) Normal (Negative); Leukocyte 25 Leu/uL (Negative); Nitrite Negative (Negative); Protein, Urine (Dipstick) Negative (Neg-Trace); RBC/HPF 0-3 HPF (0-3); Squamous Epithelial 0-3 HPF (0-3); Urobilinogen Normal mg/dL (Less than 2); WBC/HPF 0-3 HPF (0-3)
[2019-09-28 13:24] LABS: Bacteria/HPF 1+ HPF (None Seen)
[2019-09-28 14:04] LABS: Troponin I 0.018 ng/mL (< 0.028)
[2019-09-28] MEDS ORDERED: diphenhydrAMINE 50 MG/ML VIAL ONE (15:26)
--- NOTE | 2019-09-28 16:52 | CT ---
CT ABDOMEN AND PELVIS WITH IV CONTRAST: 09/28/19 HISTORY: Diarrhea. Tenderness and pain in the left lower quadrant of the abdomen. History of colon cancer that been resected. COMPARISON: None. FINDINGS: The lung bases are clear. The patient is post cholecystectomy and hysterectomy. There is mild promine nce of the biliary ducts likely due to reservoir effect. The common bile duct measures 7 mm in the pa ncreatic head. The liver, spleen, pancreas and adrenal glands are otherwise unremarkable. There are m ultiple cystic masses in the left kidney and a small exophytic cyst at the mass measuring about 12 mm and arising from the anterior aspect of the superior pole of the right kidney. These do not meet CT criteria for a simple cyst. No free air, free fluid or lymphadenopathy is seen in the abdomen or pelvis. There are postop changes in the lower anterior abdominal wall. The small bowel loops are not abnormal ly dilated. There is sigmoid diverticulosis without definite evidence of diverticulitis. There are vascular calcifications without evidence of aneurysmal dilatation of the abdominal aorta. T here are degenerative changes in the spine. Grade I anterolisthesis of L4 over L5. IMPRESSION: 1. Sigmoid diverticulosis without definite diverticulitis. 2. Indeterminate bilateral renal cystic masses. Renal ultrasound is recommended. POS: TONYA
== END 2019-09-28 16:22 | disposition home or self-care (01) ==
LOC: ERS 11:37
DX: R19.7 Diarrhea, unspecified (principal); R10.32 Left lower quadrant pain; R11.0 Nausea; R10.817 Generalized abdominal tenderness; I11.0 Hypertensive heart disease with heart failure; I50.9 Heart failure, unspecified; E11.9 Type 2 diabetes mellitus without complications; E78.5 Hyperlipidemia, unspecified; J45.909 Unspecified asthma, uncomplicated; Z85.71 Personal history of Hodgkin lymphoma; Z85.038 Personal history of other malignant neoplasm of large intestine; Z85.3 Personal history of malignant neoplasm of breast
CPT/HCPCS: 36415; 74177; 80053; 81003; 81015; 83690; 84484; 85025; 93005; 96361; 96374; 96375; J1200; J2270; J2405; Q9967

== ENCOUNTER 2019-10-02 15:36 | Inpatient (IN) | payer MEDICARE ==
[~2019-10-02 15:36] MED LIST changes: +Acetaminophen 325 MG TAB PO PRN; -Iopamidol-370 76% 500 ML 1 ML ONE
[2019-10-02] MEDS ORDERED: Senokot S 8.6-50 MG TAB PO PRN (18:07)
[2019-10-02] MEDS ORDERED: Dextrose 50% Abboject 50 ML SYRINGE SLOW IVP PRN (18:08)
[2019-10-02] MEDS ORDERED: Dextrose 5% in Water 1,000 ML IV PRN (18:08)
[2019-10-02 18:15] VITALS: BMI 38.7
[2019-10-02 19:00] LABS: #Basophils 0.1 thou/uL (0.0-0.2); #Eosinphils 2.2 thou/uL (0.0-0.7); #Lymphocytes 2.3 thou/uL (1.20-3.40); #Monocytes 0.7 thou/uL (0.11-0.59); #Neutrophils 4.9 thou/uL (1.40-6.50); %Basophils 0.5 % (0.0-1.0); %Eosinophils 21.6 % (0.0-10.0); %Lymphocytes 22.7 % (21.0-51.0); %Monocytes 6.8 % (0.0-10.0); %Neutrophils 48.4 % (42.0-75.0); Hemoglobin 12.3 g/dL (12.0-16.0); Mean Corpuscular HGB CONC 32.3 g/dL (32.0-36.0); Mean Corpuscular Hemoglobin 29.9 pg (27.0-31.0); Mean Corpuscular Volume 92.7 fL (78.0-98.0); Platelet Count 195 thou/uL (130-400); RBC Distribution Width 12.9 % (11.5-14.5); Red Blood Cell (RBC) Count 4.11 mill/uL (4.20-5.40); White Blood Cell (WBC) Count 10.1 thou/uL (4.8-10.8)
[2019-10-02 19:25] LABS: ALT (SGPT) 59 U/L (8-55); AST (SGOT) 26 U/L (5-34); Albumin 3.7 g/dL (3.4-4.8); Alkaline Phosphatase 107 U/L (40-110); Anion Gap 12 mmol/L (10-20); BUN (Urea Nitrogen) 24 mg/dL (9.8-20.1); Bilirubin, Total 0.4 mg/dL (0.2-1.2); Calc. Creatinine Clearance 66 mL/min (70-130); Calcium 8.7 mg/dL (7.8-10.44); Carbon Dioxide 22 mmol/L (23-31); Chloride 107 mmol/L (98-107); Estimated GFR-MDRD 47; Globulin 2.8 g/dL (2.4-3.5); Glucose 145 mg/dL (83-110); Potassium 4.6 mmol/L (3.5-5.1); Protein, Total 6.5 g/dL (6.0-8.3)
[2019-10-02 19:42] LABS: Sodium 136 mmol/L (136-145)
--- NOTE | 2019-10-02 22:31 | PDOC.HHP ---
Hospitalist HPI - History of Present Illness Diarrhea History of Present Illness: This patient is a 74-year-old female who presented as a direct admission. The patient reports that she had some symptoms that she thought was consistent with COVID-19. She was tested and was negative. She was subsequently retested and again negative but at that time was found to have a urinary tract infection. She was placed on ciprofloxacin. Subsequently the patient has developed significant diarrhea. She reports that 6 days ago she woke in the middle of the night with severe diarrhea and urgency. Subsequently this continued for a couple of days. She called her primary care provider who asked her to come in. She was having some left-sided abdominal discomfort and was referred to the emergency department. In the emergency department the patient was unable to produce a stool specimen. She returned on Tuesday and was able to give the specimen at that time. That has subsequently returned positive. Her PCP placed her on p.o. Flagyl. Unfortunately the patient's been unable to keep the Flagyl down because she is having some nausea and that induces significant vomiting for her. Today the patient had very little urine output. That concerned her PCP enough to have her present to the emergency department for admission. She continues to have some modest left sided mid abdominal pain. She reports a history of colon cancer and indicates that her tumor was in that general area as well. This patient also reports that she is been having severe headaches since a trauma to her head on August 13. Patient reports that she was climbing steps up into her house and missed a handle on the door and fell directly backwards down 3 steps hitting her head on concrete. She does not believe that she lost consciousness at that time. She was very dazed. She did not seek help immediately. She subsequently has had severe headaches and has been seen for those. She was taking numerous NSAIDs daily and ultimately had to be converted over to tramadol for the head pain. She also had related dizziness and vertigo. At one point she was diagnosed with peripheral vertigo. She states that her PCP has requested an MRI be done while she is here to further assess for possible [employer] trauma or bleed. Hospitalist History - Past Medical History Source: patient Cardiac: reports: HTN, Hyperlipidemia, Mitral valve stenosis Pulmonary: reports: asthma Gastrointestinal: reports: Diverticulosis (And diverticulitis) Heme/Onc: reports: Cancer (Breast and colon) Endocrine: reports: Diabetes, Hypothyroidism - Past Surgical History Past Surgical History: reports: Mastectomy (Bilateral) Other Surgical History: Partial colon resection due to tumor - Family History Other Family History: Patient is adopted - Social History Smoking Status: Never smoker Alcohol: reports: None Drugs: reports: none Activity level: independent ambulation - Exam General Appearance: NAD, awake alert General - other findings: Morbidly obese ENT: normocephalic atraumatic, no oropharyngeal lesions, moist mucosa Neck: supple, symmetric, no JVD, no thyromegaly, no lymphadenopathy, no carotid bruit Heart: RRR, no murmur, no gallops, no rubs, normal peripheral pulses Heart - other findings: Borderline tachycardia Respiratory: CTAB, no wheezes, no rales, no ronchi, normal chest expansion, no tachypnea, normal percussion Gastrointestinal: soft, non-distended, normal bowel sounds, no palpable masses, no hepatomegaly, no splenomegaly, no bruit Gastrointestinal - other findings: Mild tenderness to palpation in the left mid abdomen Extremities: no cyanosis, no clubbing, no edema Skin: normal turgor, no lesions, no rashes Neurological: cranial nerve grossly intact, normal sensation to touch, no weakness, no focal deficits, no new deficit Musculoskeletal: normal tone, normal strength, no muscle wasting Psychiatric: normal affect, normal behavior, A&O x 3, oriented to person, oriented to place, oriented to time Hospitalist Results - Labs Result Diagrams: 10/02/19 18:34 10/02/19 18:34 Lab results: WBC 10.1 thou/uL (4.8-10.8) 10/02/19 18:34 Hgb 12.3 g/dL (12.0-16.0) 10/02/19 18:34 Hct 38.1 % (36.0-47.0) 10/02/19 18:34 MCV 92.7 fL (78.0-98.0) 10/02/19 18:34 Plt Count 195 thou/uL (130-400) 10/02/19 18:34 Neutrophils % 48.4 % (42.0-75.0) 10/02/19 18:34 Sodium 136 mmol/L (136-145) 10/02/19 18:34 Potassium 4.6 mmol/L (3.5-5.1) 10/02/19 18:34 Chloride 107 mmol/L (98-107) 10/02/19 18:34 Carbon Dioxide 22 mmol/L (23-31) L 10/02/19 18:34 BUN 24 mg/dL (9.8-20.1) H 10/02/19 18:34 Creatinine 1.13 mg/dL (0.6-1.1) H 10/02/19 18:34 Glucose 145 mg/dL (83-110) H 10/02/19 18:34 Calcium 8.7 mg/dL (7.8-10.44) 10/02/19 18:34 Total Bilirubin 0.4 mg/dL (0.2-1.2) 10/02/19 18:34 AST 26 U/L (5-34) 10/02/19 18:34 ALT 59 U/L (8-55) H 10/02/19 18:34 Alkaline Phosphatase 107 U/L (40-110) 10/02/19 18:34 Serum Total Protein 6.5 g/dL (6.0-8.3) 10/02/19 18:34 Albumin 3.7 g/dL (3.4-4.8) 10/02/19 18:34 - Radiology Interpretation CT scan - abdomen Additional Comment: There are multiple cystic masses in the kidneys. Recommendation for renal ultrasound to further assess. Hospitalist H&P A/P - Problem (1) C. difficile colitis Code(s): A04.72 - ENTEROCOLITIS D/T CLOSTRIDIUM DIFFICILE, NOT SPCF RECUR Status: Acute Assessment and Plan: This patient had outpatient testing that confirmed C. difficile colitis. She continues to have significant, frequent, copious diarrhea. She has been unable to take p.o.'s because of nausea and vomiting. She is admitted to the hospital. We will start IV fluids. We will continue with oral medications. Will change from her outpatient regimen of Flagyl to oral vancomycin. Because she is not able to take p.o.'s well, I will continue with IV Flagyl in the short -term. (2) Chronic kidney disease, stage III (moderate) Code(s): N18.3 - CHRONIC KIDNEY DISEASE, STAGE 3 (MODERATE) Status: Acute Assessment and Plan: Patient's renal function appears to be at her baseline. We will continue to monitor with hydration. (3) Postconcussion syndrome Code(s): F07.81 - POSTCONCUSSIONAL SYNDROME Status: Acute Assessment and Plan: Patient appeared to suffer a head injury from a fall on August 12. She continues to have recurrent headaches which are severe and required tramadol. We will continue with pain management. She likely does need an MRI of the brain. We will ensure that her diarrhea will be controlled well enough for her to be able to have the MRI done. Will defer ordering that to the daytime provider. Pending the results she may need a neurology consult as well. Further concerning for the patient's associated vertigo. (4) Headache Code(s): R51 - HEADACHE Status: Acute Assessment and Plan: Appears to be postconcussion syndrome related. Continue pain management for now. MRI when she is adequately stable. (5) Abdominal pain Code(s): R10.9 - UNSPECIFIED ABDOMINAL PAIN Status: Acute Assessment and Plan: This appears to predate the C. difficile infection. She has had a CT of the abdomen which did not show any pathology which would account for this. May be related to inflammation or some scar tissue from her prior partial colectomy. (6) Hypertension Code(s): I10 - ESSENTIAL (PRIMARY) HYPERTENSION Status: Acute Assessment and Plan: Continue home dose of lisinopril. (7) Diabetes mellitus Code(s): E11.9 - TYPE 2 DIABETES MELLITUS WITHOUT COMPLICATIONS Status: Acute Assessment and Plan: Home meds as tolerated. Accu-Cheks. We do not carry her injectable medications. We will need to cover with some insulin. (8) Asthma Code(s): J45.909 - UNSPECIFIED ASTHMA, UNCOMPLICATED Status: Acute Assessment and Plan: Appears to be stable and well controlled. Her lung exam is normal at present. (9) Nausea & vomiting Code(s): R11.2 - NAUSEA WITH VOMITING, UNSPECIFIED Status: Acute Assessment and Plan: Suspect this is related to the colitis. Will need to be adequately treated so that the patient can take p.o. medications for the C. difficile colitis. Will provide PRN medications. (10) Renal mass of unknown nature Code(s): N28.89 - OTHER SPECIFIED DISORDERS OF KIDNEY AND URETER Status: Acute Assessment and Plan: Appears to be possibly cystic in nature. Will obtain renal ultrasound to further assess. This patient has a history of both breast and colon cancers. (11) Hypothyroidism Code(s): E03.9 - HYPOTHYROIDISM, UNSPECIFIED Status: Acute Assessment and Plan: Continue home levothyroxine (12) Hyperlipidemia Code(s): E78.5 - HYPERLIPIDEMIA, UNSPECIFIED Status: Acute Assessment and Plan: Continue with her home dose of statin.
[2019-10-02] MEDS ORDERED: PROVENTIL INHALER 6.7 G (200 INHALATIONS) INH PRN (23:05)
[2019-10-02] MEDS ORDERED: traMADol HCl 50 MG TAB PO PRN (23:13)
[2019-10-02] MEDS: Sodium Chloride 0.9% 1,000 ML IV SCH (23:54)
[2019-10-02] MEDS: metroNIDAZOLE 500 MG in Premix Bag 1 BAG IVPB SCH (23:54)
[2019-10-02] MEDS: Vancomycin HCl 25 MG/ML Oral PO SCH (23:54)
[2019-10-03] MEDS: diphenhydrAMINE 25 MG CAP PO PRN ×2 (02:00→21:57)
[2019-10-03] MEDS: metroNIDAZOLE 500 MG in Premix Bag 1 BAG IVPB SCH ×2 (06:12→18:38)
[2019-10-03] MEDS: Vancomycin HCl 25 MG/ML Oral PO SCH ×3 (06:13→18:38)
[2019-10-03] MEDS: Levothyroxine Sodium 75 MCG TAB PO SCH (06:13)
[2019-10-03 06:33] LABS: #Eosinphils 1.9 thou/uL (0.0-0.7); #Lymphocytes 2.5 thou/uL (1.20-3.40); #Monocytes 0.6 thou/uL (0.11-0.59); #Neutrophils 3.2 thou/uL (1.40-6.50); %Basophils 0.6 % (0.0-1.0); %Eosinophils 23.2 % (0.0-10.0); %Lymphocytes 30.1 % (21.0-51.0); %Monocytes 7.3 % (0.0-10.0); %Neutrophils 38.8 % (42.0-75.0); Hemoglobin 10.3 g/dL (12.0-16.0); Mean Corpuscular HGB CONC 32.3 g/dL (32.0-36.0); Mean Corpuscular Hemoglobin 29.9 pg (27.0-31.0); Mean Corpuscular Volume 92.5 fL (78.0-98.0); Mean Platelet Volume 7.6 fL (7.4-10.4); Platelet Count 166 thou/uL (130-400); Red Blood Cell (RBC) Count 3.46 mill/uL (4.20-5.40); White Blood Cell (WBC) Count 8.3 thou/uL (4.8-10.8)
[2019-10-03 07:03] LABS: Anion Gap 8 mmol/L (10-20); BUN (Urea Nitrogen) 20 mg/dL (9.8-20.1); Calc. Creatinine Clearance 98 mL/min (70-130); Carbon Dioxide 21 mmol/L (23-31); Chloride 115 mmol/L (98-107); Estimated GFR-MDRD 75; Glucose 55 mg/dL (83-110); Potassium 3.6 mmol/L (3.5-5.1); Sodium 140 mmol/L (136-145)
[2019-10-03] MEDS ORDERED: Dextrose 50% Abboject 50 ML SYRINGE SLOW IVP PRN (07:22)
[2019-10-03] MEDS ORDERED: Dextrose 5% in Water 1,000 ML IV PRN (07:22)
[2019-10-03] MEDS: Famotidine/PF 20 mg/2ml Vial SLOW IVP SCH ×2 (08:50→21:49)
[2019-10-03] MEDS: Enoxaparin Sodium 40 MG/0.4 ML SYRINGE SC SCH (08:50)
[2019-10-03] MEDS: Ondansetron PF 4 MG/2 ML Vial IVP PRN ×2 (10:41→16:01)
--- NOTE | 2019-10-03 11:43 | ULT ---
ULTRASOUND RETROPERITONEUM COMPLETE: (RENAL) DATE: 10/03/2019 HISTORY: 74-year-old female with indeterminate renal masses found on CT FINDINGS: The right kidney measures 10 x 5 x 5 cm. The left kidney measures 9 x 5.5 x 5.5 cm. 1.5 x 1 x 1 cm exophytic hypoechoic lesion upper pole right kidney. 1.5 x 1.5 x 1 cm exophytic simple cyst lateral left renal lower pole. 1.5 x 1.5 x 1 cm hypoechoic lesion medial aspect of left renal lower pole. There is no hydronephrosis. No moderate sized or large renal cystic or solid renal lesion is identified. Cursory images of the urinary bladder demonstrate no gross abnormality. IMPRESSION: 1. No hydronephrosis. 2. A few small hypoechoic renal lesions. One of them is a benign simple cyst at lateral left lower po le. The other 2 are probably cysts, but cannot be conclusively diagnosed as benign simple cysts. 3. Recommend serial follow-up renal ultrasound is, beginning in 6 months.
[2019-10-03] MEDS ORDERED: traMADol HCl 50 MG TAB PO PRN (13:12)
--- NOTE | 2019-10-03 14:45 | MRI ---
EXAM: MRI Brain WO Con PROVIDED CLINICAL HISTORY: Post concussion syndrome. COMPARISON: None FINDINGS: Scattered punctate areas of increased FLAIR and T2-weighted signal intensity are seen in the perivent ricular and subcortical white matter which are nonspecific but likely attributable to chronic small vessel ischemic changes. No acute infarction is seen. Septum pellucidum and third ventricle are in th e midline. Mild cerebral volume loss is present. Ventricular system is normal in size, shape, and position for the degree of sulcal atrophy. Normal flow-voids are seen in the large intracranial vessels at the base of the brain. [place] lenses are not visualized. Paranasal sinuses and skull base have a normal appearance. IMPRESSION: 1. No acute intracranial abnormality demonstrated. 2. Mild chronic small vessel ischemic changes and cerebral volume loss.
[2019-10-03] MEDS: Sodium Chloride 0.9% 1,000 ML IV SCH (16:15)
--- NOTE | 2019-10-03 18:39 | PDOC.HOSPP ---
- Subjective Encounter Date: 10/03/19 Encounter Time: 07:00 Subjective: no overnight events. this morning, endorses not having diarrhea since yesterday. tolerating PO. Pending renal U/s for cysts and brain MRI for persistent posconcussive syndrome - Objective Vital Signs & Weight: Vital Signs (12 hours) Temp Pulse Resp BP Pulse Ox 10/03/19 16:10 98.2 F 93 20 115/73 100 10/03/19 12:35 98.4 F 95 18 124/85 98 10/03/19 08:43 98.0 F 93 18 119/81 98 10/03/19 08:00 98 Weight Admit Weight 205 lb 4.8 oz Weight 205 lb 4.8 oz Result Diagrams: 10/03/19 06:20 10/03/19 06:20 Additional Labs: Accuchecks 10/03/19 16:17 POC Glucose 127 H Hospitalist ROS - Review of Systems Constitutional: denies: fever, chills, sweats, weakness, malaise, other Respiratory: denies: cough, dry, shortness of breath, hemoptysis, SOB with excertion, pleuritic pain, sputum, wheezing, other Cardiovascular: denies: chest pain, palpitations, orthopnea, paroxysmal noc. dyspnea, edema, light headedness, other Gastrointestinal: denies: nausea, vomiting, abdominal pain, diarrhea, constipation, melena, hematochezia, other Genitourinary: denies: dysuria, frequency, incontinence, hematuria, retention, other - Medication Medications: Active Medications Generic Name Dose Route Start Last Admin Trade Name Freq PRN Reason Stop Dose Admin Diphenhydramine HCl 25 mg 10/03/19 01:47 10/03/19 02:00 Benadryl PO 25 mg Q6H PRN Administration Itching & Insomnia Enoxaparin Sodium 40 mg 10/03/19 09:00 10/03/19 08:50 Lovenox SC 40 mg 0900 TONYA Administration Famotidine 20 mg 10/03/19 09:00 10/03/19 08:50 Pepcid SLOW IVP 20 mg Q12HR TONYA Administration Sodium Chloride 1,000 mls @ 75 mls/hr 10/02/19 23:00 10/03/19 16:15 Normal Saline 0.9% IV 1,000 mls .[id number] TONYA Administration Levothyroxine Sodium 75 mcg 10/03/19 06:00 10/03/19 06:13 Synthroid PO 75 mcg 0600 TONYA Administration Ondansetron HCl 4 mg 10/02/19 22:53 10/03/19 16:01 Zofran IVP 4 mg Q6H PRN Administration Nausea/Vomiting Vancomycin HCl 125 mg 10/02/19 23:59 10/03/19 16:00 First Vancomycin PO 125 mg Q6HR TONYA Administration - Exam General Appearance: NAD, awake alert Heart: RRR, no murmur, no gallops, no rubs, normal peripheral pulses Respiratory: CTAB, no wheezes, no rales, no ronchi, normal chest expansion, no tachypnea, normal percussion Gastrointestinal: soft, non-tender, non-distended, normal bowel sounds, no palpable masses, no hepatomegaly, no splenomegaly, no bruit Extremities: no edema Psychiatric: normal affect, normal behavior, A&O x 3 Hosp A/P - Plan #c.diff colitis -symptomatically improving -PO tolerant -stop flagyl IV, continue vanc PO -supportive measures #postconcussive syndrome -complains of severe headache that have persisted since #JAYJAY (resolved) Prerenal continue IVF #renal cysts -renal U/S shows simple and indeterminate cysts -follow in 6 months as per radiology; conveyed to PCP #
[2019-10-03] MEDS: Aspirin 81 mg Enteric Coated Tablet PO SCH (21:49)
[2019-10-03] MEDS: Venlafaxine HCl XR 150 MG CAP PO SCH (21:50)
[2019-10-03] MEDS: Simvastatin 40 MG TAB PO SCH (21:50)
[2019-10-03] MEDS: Montelukast Sodium 10 mg Tablet PO SCH (21:50)
[2019-10-03] MEDS: traMADol HCl 50 MG TAB PO PRN (22:07)
[2019-10-03] MEDS: Ondansetron ODT 4 MG TAB PO PRN (22:07)
[2019-10-04] MEDS: Vancomycin HCl 25 MG/ML Oral PO SCH ×5 (00:48→23:36)
[2019-10-04] MEDS: Sodium Chloride 0.9% 1,000 ML IV SCH ×2 (00:49→17:22)
[2019-10-04] MEDS: Levothyroxine Sodium 75 MCG TAB PO SCH (05:21)
[2019-10-04] MEDS: traMADol HCl 50 MG TAB PO PRN (05:22)
[2019-10-04] MEDS: Ondansetron ODT 4 MG TAB PO PRN (05:22)
[2019-10-04] MEDS: HumaLOG 300 UNITS/3 ML VIAL SC PRN ×3 (06:56→17:22)
[2019-10-04 07:16] LABS: #Eosinphils 1.4 thou/uL (0.0-0.7); #Lymphocytes 1.9 thou/uL (1.20-3.40); #Monocytes 0.6 thou/uL (0.11-0.59); #Neutrophils 3.9 thou/uL (1.40-6.50); %Basophils 0.4 % (0.0-1.0); %Eosinophils 17.5 % (0.0-10.0); %Lymphocytes 24.5 % (21.0-51.0); %Monocytes 7.2 % (0.0-10.0); %Neutrophils 50.4 % (42.0-75.0); Mean Corpuscular HGB CONC 32.1 g/dL (32.0-36.0); Mean Corpuscular Hemoglobin 29.6 pg (27.0-31.0); Mean Corpuscular Volume 92.3 fL (78.0-98.0); Mean Platelet Volume 7.7 fL (7.4-10.4); Platelet Count 171 thou/uL (130-400); Red Blood Cell (RBC) Count 3.72 mill/uL (4.20-5.40); White Blood Cell (WBC) Count 7.8 thou/uL (4.8-10.8)
[2019-10-04 07:43] LABS: Anion Gap 8 mmol/L (10-20); BUN (Urea Nitrogen) 17 mg/dL (9.8-20.1); Calc. Creatinine Clearance 82 mL/min (70-130); Calcium 8.2 mg/dL (7.8-10.44); Carbon Dioxide 25 mmol/L (23-31); Chloride 108 mmol/L (98-107); Estimated GFR-MDRD 61; Glucose 154 mg/dL (83-110); Magnesium 1.5 mg/dL (1.6-2.6); Potassium 4.2 mmol/L (3.5-5.1); Sodium 137 mmol/L (136-145)
[2019-10-04] MEDS: Famotidine/PF 20 mg/2ml Vial SLOW IVP SCH ×2 (08:30→21:41)
[2019-10-04] MEDS: Enoxaparin Sodium 40 MG/0.4 ML SYRINGE SC SCH (08:30)
[2019-10-04] MEDS ORDERED: Magnesium Oxide 400 MG TAB PO SCH (10:30)
[2019-10-04] MEDS ORDERED: INSULIN DEGLUDEC 10 UNIT SQ SCH (12:00)
[2019-10-04] MEDS: Insulin Glargine 10 UNITS in Pre-Filled Syringe 1 EACH SC SCH (12:01)
[2019-10-04] MEDS: Calcium Carbonate 500 MG ChewTAB PO PRN (19:37)
[2019-10-04] MEDS: Montelukast Sodium 10 mg Tablet PO SCH (21:40)
[2019-10-04] MEDS: Venlafaxine HCl XR 150 MG CAP PO SCH (21:40)
[2019-10-04] MEDS: diphenhydrAMINE 25 MG CAP PO PRN (21:41)
[2019-10-04] MEDS: Simvastatin 40 MG TAB PO SCH (21:41)
[2019-10-04] MEDS: Aspirin 81 mg Enteric Coated Tablet PO SCH (21:41)
--- NOTE | 2019-10-04 21:46 | PDOC.HOSPP ---
- Subjective Encounter Date: 10/04/19 Encounter Time: 09:00 Subjective: no overnight events. no additional bowel movements. Requested stool softener and explained that she can't have it with active c. diff infection. - Objective Vital Signs & Weight: Vital Signs (12 hours) Temp Pulse Resp BP Pulse Ox 10/04/19 19:19 98 F 92 18 131/87 99 10/04/19 16:00 98.0 F 98 20 118/75 100 10/04/19 11:28 98.2 F 100 18 135/85 98 Weight Admit Weight 205 lb 4.8 oz Weight 205 lb 4.8 oz I&O: 10/03/19 10/04/19 10/05/19 06:59 06:59 06:59 Intake Total 2024 Balance 2024 Result Diagrams: 10/04/19 06:38 10/04/19 06:38 Additional Labs: Accuchecks 10/04/19 10/04/19 10/04/19 19:21 16:07 11:34 POC Glucose 148 H 153 H 183 H 10/04/19 10/03/19 05:22 21:52 POC Glucose 208 H 173 H Hospitalist ROS - Review of Systems Constitutional: denies: fever, chills, sweats, weakness, malaise, other Respiratory: denies: cough, dry, shortness of breath, hemoptysis, SOB with excertion, pleuritic pain, sputum, wheezing, other Cardiovascular: denies: chest pain, palpitations, orthopnea, paroxysmal noc. dyspnea, edema, light headedness, other Gastrointestinal: denies: nausea, vomiting, abdominal pain, diarrhea, constipation, melena, hematochezia, other - Medication Medications: Active Medications Generic Name Dose Route Start Last Admin Trade Name Freq PRN Reason Stop Dose Admin Acetaminophen 650 mg 10/02/19 03:55 10/04/19 19:38 Tylenol PO 650 mg Q4H PRN Administration Headache/Fever/Mild Pain (1-3) Aspirin 81 mg 10/03/19 21:00 10/04/19 21:41 Ecotrin PO 81 mg HS TONYA Administration Calcium Carbonate 500 mg 10/02/19 23:05 10/04/19 19:37 Tums PO 500 mg QID PRN Administration INDIGESTION Diphenhydramine HCl 25 mg 10/03/19 01:47 10/04/19 21:41 Benadryl PO 25 mg Q6H PRN Administration Itching & Insomnia Enoxaparin Sodium 40 mg 10/03/19 09:00 10/04/19 08:30 Lovenox SC 40 mg 0900 TONYA Administration Famotidine 20 mg 10/03/19 09:00 10/04/19 21:41 Pepcid SLOW IVP 20 mg Q12HR TONYA Administration Sodium Chloride 1,000 mls @ 75 mls/hr 10/02/19 23:00 10/04/19 17:22 Normal Saline 0.9% IV 1,000 mls .[id number] TONYA Administration Insulin Glargine 10 units/ 0.1 mls @ 0 mls/hr 10/04/19 12:00 10/04/19 12:01 Miscellaneous Medication SC 0.1 mls 1200 TONYA Administration Insulin Human Lispro 0 units 10/02/19 18:08 10/04/19 17:22 Humalog SC 2 unit .MILD SLIDING SCALE PRN Administration Mild Correctional Scale Levothyroxine Sodium 75 mcg 10/03/19 06:00 10/04/19 05:21 Synthroid PO 75 mcg 0600 TONYA Administration Montelukast Sodium 10 mg 10/03/19 21:00 10/04/19 21:40 Singulair PO 10 mg QPM TONYA Administration Ondansetron HCl 4 mg 10/02/19 22:53 10/04/19 05:22 Zofran Odt PO 4 mg Q6H PRN Administration Nausea/Vomiting Ondansetron HCl 4 mg 10/02/19 22:53 10/03/19 16:01 Zofran IVP 4 mg Q6H PRN Administration Nausea/Vomiting Simvastatin 80 mg 10/03/19 21:00 10/04/19 21:41 Zocor PO 80 mg HS TONYA Administration Tramadol HCl 50 mg 10/03/19 21:55 10/04/19 05:22 Ultram PO 50 mg Q6H PRN Administration Moderate Pain (4-6) Vancomycin HCl 125 mg 10/02/19 23:59 10/04/19 17:21 First Vancomycin PO 125 mg Q6HR OTNYA Administration Venlafaxine HCl 150 mg 10/03/19 21:00 10/04/19 21:40 Effexor Xr PO 150 mg HS TONYA Administration - Exam General Appearance: NAD, awake alert Heart: RRR, no murmur, no gallops, no rubs, normal peripheral pulses Respiratory: CTAB, no wheezes, no rales, no ronchi, normal chest expansion, no tachypnea, normal percussion Gastrointestinal: soft, non-tender, non-distended, normal bowel sounds, no palpable masses, no hepatomegaly, no splenomegaly, no bruit Hosp A/P - Plan #c.diff colitis -diarrhea resolved (10/02) -PO tolerant -continue vancomycin #postconcussive syndrome -MRI unremarkable -likely tension headache based on description; on DC will provide education material on preventive measures; patient claims that another physician told her can't use tylenol; requested that patient revisits possibility with physician since does not appear to have allergy or contraindication continue tramadol #JAYJAY (resolved) Prerenal #renal cysts -renal U/S shows simple and indeterminate cysts -follow in 6 months as per radiology; conveyed to PCP elos: 1 midnight
[2019-10-05] MEDS: diphenhydrAMINE 25 MG CAP PO PRN ×2 (05:29→12:11)
[2019-10-05] MEDS: Sodium Chloride 0.9% 1,000 ML IV SCH ×2 (05:29→09:46)
[2019-10-05] MEDS: Vancomycin HCl 25 MG/ML Oral PO SCH ×3 (05:29→17:25)
[2019-10-05] MEDS: Levothyroxine Sodium 75 MCG TAB PO SCH (05:29)
[2019-10-05] MEDS: Famotidine/PF 20 mg/2ml Vial SLOW IVP SCH (08:32)
[2019-10-05] MEDS: Enoxaparin Sodium 40 MG/0.4 ML SYRINGE SC SCH (08:32)
[2019-10-05] MEDS: traMADol HCl 50 MG TAB PO PRN (08:42)
[2019-10-05] MEDS: Calcium Carbonate 500 MG ChewTAB PO PRN (08:56)
[2019-10-05] MEDS: HumaLOG 300 UNITS/3 ML VIAL SC PRN (12:06)
[2019-10-05] MEDS: Insulin Glargine 10 UNITS in Pre-Filled Syringe 1 EACH SC SCH (12:11)
[2019-10-05 15:29] VITALS: BP 147/79; TEMP 98.3
--- NOTE | 2019-10-07 09:10 | DIS ---
DATE OF ADMISSION: 10/02/2019 DATE OF DISCHARGE: 10/05/2019 HOSPITAL COURSE: Ms. Lynch is a 74-year-old female, who presented with acute diarrhea. She was diagnosed with C diff colitis and was treated initially with oral vancomycin and IV metronidazole due to p.o. intolerance. However, symptoms resolved the day following presentation and she was transitioned to oral vancomycin. She was completely asymptomatic on the day of discharge. In addition to that, the patient was complaining of persistent recurrent headaches after a head trauma more than a month ago. An MRI of the head did not show any acute processes. After discussing her options and the likely diagnosis of tension headache, the patient agreed to attempt Tylenol despite reportedly not tolerating it previously. The patient's headache has improved significantly after attempting Tylenol and she was discharged with p.r.n. Tylenol for headaches. Lastly, the patient had renal cyst that grew in size based on previous imaging. Repeat ultrasound showed simple cyst as well as unidentifiable lesions. Per Radiology, it was recommended to repeat renal ultrasound in 6 months. All results and recommendations were conveyed to the patient and the family as well as via direct communication to her primary care physician over the phone. MEDICATIONS: New medications; 1. Vancomycin 125 mg p.o. q.6 hours for eight more days. 2. Benadryl 25 mg q.6 hours p.r.n. rash or topical irritation. 3. Tylenol q.8 hours p.r.n. headaches. Continue medications; 1. Venlafaxine. 2. Linaclotide. 3. Linagliptin. 4. Aspirin. 5. Simvastatin. 6. Lisinopril. 7. Levothyroxine. 8. Insulin. 9. Liraglutide. 10. Albuterol. 11. Calcium carbonate. 12. Montelukast. 13. Tramadol. 14. Humalog. Discontinued medications, none. Job ID: [id number]
== END 2019-10-05 17:50 | disposition home or self-care (01) | DRG 372 ==
LOC: T4-B 17:01 → OBSVTOIN 17:01
PROVIDERS: ADMIT Internal Medicine; ATTEND Internal Medicine
DX: A04.72 Enterocolitis due to Clostridium difficile, not specified as recurrent (principal); K57.92 Diverticulitis of intestine, part unspecified, without perforation or abscess without bleeding; N17.9 Acute kidney failure, unspecified; I12.9 Hypertensive chronic kidney disease with stage 1 through stage 4 chronic kidney disease, or unspecified chronic kidney disease; E78.5 Hyperlipidemia, unspecified; I05.0 Rheumatic mitral stenosis; J45.909 Unspecified asthma, uncomplicated; E11.22 Type 2 diabetes mellitus with diabetic chronic kidney disease; K57.90 Diverticulosis of intestine, part unspecified, without perforation or abscess without bleeding; E03.9 Hypothyroidism, unspecified; E66.01 Morbid (severe) obesity due to excess calories; N18.3 Chronic kidney disease, stage 3 (moderate); F07.81 Postconcussional syndrome; N28.1 Cyst of kidney, acquired; G44.209 Tension-type headache, unspecified, not intractable; Z85.038 Personal history of other malignant neoplasm of large intestine; Z85.3 Personal history of malignant neoplasm of breast; Z91.81 History of falling; Z90.13 Acquired absence of bilateral breasts and nipples; Z90.49 Acquired absence of other specified parts of digestive tract; Z68.38 Body mass index [BMI] 38.0-38.9, adult
CPT/HCPCS: 36415; 36416; 70551; 76770; 80048; 80053; 83735; 85025; 87324; 87449; 87493; J1650; J1815; J2405; Q0162; Q0163; S0028

== ENCOUNTER 2019-10-14 14:03 | Emergency (ER) | payer MEDICARE ==
[2019-10-14] MEDS ORDERED: HYDROcodone/Acetaminophen 7.5/325 mg Tablet ONE (14:58)
--- NOTE | 2019-10-14 15:44 | RAD ---
LEFT WRIST THREE VIEWS: History: Injury. Left wrist pain. FINDINGS: No acute fracture or dislocation is identified. If symptoms do not approve, follow up exam should be obtained along with scaphoid views in 7-10 days. IMPRESSION: As above. POS: OFF
[2019-10-14] MEDS ORDERED: Bacitracin 1 PK ONE (15:58)
[2019-10-14] MEDS ORDERED: Ketorolac Tromethamine 30 MG/ML VIAL ONE (16:08)
== END 2019-10-14 16:40 | disposition home or self-care (01) ==
LOC: ERS 14:03
DX: S51.812A Laceration without foreign body of left forearm, initial encounter (principal); S61.532A Puncture wound without foreign body of left wrist, initial encounter; E78.5 Hyperlipidemia, unspecified; I11.0 Hypertensive heart disease with heart failure; I50.9 Heart failure, unspecified; E11.9 Type 2 diabetes mellitus without complications; J45.909 Unspecified asthma, uncomplicated; W01.198A Fall on same level from slipping, tripping and stumbling with subsequent striking against other object, initial encounter; Y99.0 Civilian activity done for income or pay
CPT/HCPCS: 12001; 96372; J1885

== ENCOUNTER 2019-10-20 13:24 | Emergency (ER) | payer MEDICARE ==
[2019-10-20] MEDS ORDERED: Lidocaine 1% (PF) 30 ML VIAL ONE (13:44)
[2019-10-20] MEDS ORDERED: Bacitracin 1 PK ONE (13:52)
== END 2019-10-20 15:26 | disposition home or self-care (01) ==
LOC: ERS 13:24
DX: S81.812A Laceration without foreign body, left lower leg, initial encounter (principal); S51.812A Laceration without foreign body of left forearm, initial encounter; E78.5 Hyperlipidemia, unspecified; I11.0 Hypertensive heart disease with heart failure; I50.9 Heart failure, unspecified; E11.9 Type 2 diabetes mellitus without complications; J45.909 Unspecified asthma, uncomplicated; W01.198A Fall on same level from slipping, tripping and stumbling with subsequent striking against other object, initial encounter
CPT/HCPCS: 12002; J2001

== ENCOUNTER 2019-11-21 17:39 | Observation (INO) | payer MEDICARE ==
[~2019-11-21 17:39] MED LIST changes: -Acetaminophen 325 MG TAB PO PRN; +Iopamidol 370 76% 100 ML VIAL ONE
[2019-11-21] MEDS ORDERED: Fentanyl 100 MCG/2 ML VIAL ONE (18:23)
[2019-11-21] MEDS ORDERED: Ondansetron PF 4 MG/2 ML Vial ONE (18:24)
[2019-11-21] MEDS ORDERED: Vancomycin 1 GM/200 ML BAG ONE (18:24)
[2019-11-21] MEDS ORDERED: metroNIDAZOLE 500 MG/100 ML BAG ONE (18:25)
[2019-11-21 19:00] LABS: #Basophils 0.1 thou/uL (0.0-0.2); #Eosinphils 0.4 thou/uL (0.0-0.7); #Lymphocytes 1.8 thou/uL (1.20-3.40); #Monocytes 0.6 thou/uL (0.11-0.59); #Neutrophils 3.9 thou/uL (1.40-6.50); %Basophils 1.2 % (0.0-1.0); %Eosinophils 5.5 % (0.0-10.0); %Lymphocytes 26.8 % (21.0-51.0); %Monocytes 8.2 % (0.0-10.0); %Neutrophils 58.3 % (42.0-75.0); Hemoglobin 12.4 g/dL (12.0-16.0); Mean Corpuscular HGB CONC 32.9 g/dL (32.0-36.0); Mean Corpuscular Hemoglobin 29.8 pg (27.0-31.0); Mean Corpuscular Volume 90.7 fL (78.0-98.0); Mean Platelet Volume 7.7 fL (7.4-10.4); Platelet Count 185 thou/uL (130-400); RBC Distribution Width 13.1 % (11.5-14.5); Red Blood Cell (RBC) Count 4.16 mill/uL (4.20-5.40); White Blood Cell (WBC) Count 6.8 thou/uL (4.8-10.8)
[2019-11-21 19:19] LABS: ALT (SGPT) 21 U/L (8-55); AST (SGOT) 21 U/L (5-34); Albumin 3.9 g/dL (3.4-4.8); Alkaline Phosphatase 70 U/L (40-110); Anion Gap 10 mmol/L (10-20); BUN (Urea Nitrogen) 22 mg/dL (9.8-20.1); Bilirubin, Total 0.2 mg/dL (0.2-1.2); CK (CPK) 49 U/L (29-168); Calc. Creatinine Clearance 0 mL/min (70-130); Calcium 9.1 mg/dL (7.8-10.44); Carbon Dioxide 27 mmol/L (23-31); Chloride 105 mmol/L (98-107); Estimated GFR-MDRD 49; Glucose 173 mg/dL (83-110); Lipase 37 U/L (8-78); Potassium 4.3 mmol/L (3.5-5.1); Protein, Total 6.9 g/dL (6.0-8.3); Sodium 138 mmol/L (136-145)
[2019-11-21] MEDS ORDERED: metroNIDAZOLE 250 MG TAB ONE (19:38)
[2019-11-21] MEDS ORDERED: Vancomycin HCl 25 MG/ML Oral PO SCH (20:00)
--- NOTE | 2019-11-21 20:07 | CT ---
CT OF THE ABDOMEN AND PELVIS WITH IV CONTRAST INDICATION: Abdominal pain with diarrhea COMPARISON: Prior exam dated September 28, 2019 FINDINGS: ABDOMEN: Lung bases: Clear Liver: No focal lesion. Gallbladder: Surgically absent Pancreas: Normal. Adrenal glands: Normal. Spleen: Normal. Kidneys and ureters: Cystic abnormalities appear unchanged. No hydronephrosis. Vasculature: There are moderate vascular calcifications seen involving the visualized vasculature. Lymph nodes:No lymphadenopathy. Free fluid in abdomen:No free fluid is evident. PELVIS: Small and large bowel: There are scattered colonic diverticula. The colon is largely decompressed. Sm all bowel is of normal caliber Appendix:Not definitely seen Bladder: Normal. Rectal and perirectal soft tissues:Normal. Reproductive structures: Surgically absent Free fluid in pelvis: No free fluid is evident. Lymphadenopathy pelvis: No lymphadenopathy is evident. Osseous structures: No acute osseous abnormality. No destructive osteolytic or osteoblastic lesion i s identified. There is scattered degenerative and osteoarthritic changes. Soft tissues:There is surgical change involving the lower anterior abdominal wall and both inguinal r egions. IMPRESSION: 1. No acute abnormality. 2. Cystic abnormalities of both kidneys are unchanged. Follow-up as per the renal ultrasound dated 2019
[2019-11-21] MEDS ORDERED: Communication Order-Pharmacy FS ONE (22:49)
[2019-11-21] MEDS ORDERED: Acetaminophen 325 MG TAB PO PRN (22:57)
[2019-11-21] MEDS ORDERED: Acetaminophen 650 MG Suppository PR PRN (22:57)
[2019-11-21] MEDS ORDERED: Ondansetron PF 4 MG/2 ML Vial IVP PRN (22:57)
[2019-11-21] MEDS ORDERED: HumaLOG 300 UNITS/3 ML VIAL SC PRN ×2 (23:02)
[2019-11-21] MEDS ORDERED: Dextrose 5% in Water 1,000 ML IV PRN (23:02)
[2019-11-21] MEDS ORDERED: diphenhydrAMINE 25 MG CAP PO PRN (23:02)
[2019-11-21] MEDS ORDERED: Dextrose 50% Abboject 50 ML SYRINGE SLOW IVP PRN (23:02)
[2019-11-21] MEDS ORDERED: Fentanyl 100 MCG/2 ML VIAL SLOW IVP SCH (23:15)
--- NOTE | 2019-11-22 00:32 | HP ---
TIME OF ASSESSMENT: At 2099. CHIEF COMPLAINT: Left lower abdominal pain and diarrhea. HISTORY OF PRESENT ILLNESS: Ms. Lynch is a pleasant 74-year-old woman, who presents to the emergency department after receiving results from her primary care physician that her stool was positive for Clostridium difficile. She states she developed loose stools on Tuesday and only had two episodes and then over the weekend her diarrhea resolved. On Tuesday, she began to have loose stools again and yesterday had a total of eight watery stools with discomfort in the left lower quadrant. Patient states these are the same symptoms she had with recent Clostridium difficile infection, for which she was admitted and treated in September 2019. Patient states that prior to coming down with Clostridium difficile, she had been treated for UTI with broad-spectrum antibiotics. At present, she states her left lower abdominal discomfort has eased since she was given fentanyl in the emergency department. It went from 10/10 in severity to a 1/10. She reports having an episode of vomiting yesterday. Has had decreased appetite. Continues to feel nauseated today, but has not had any further episodes of vomiting. Denies noting any blood in her stools. Reports having some urinary hesitancy since yesterday and feels as if she is not emptying her bladder fully. After coming up to the floor, she states she was able to urinate and empty her bladder well enough to where she began to experience some relief in the suprapubic discomfort. Denies noting any blood in her urine. No dysuria. Has not had any fevers, chills, or sweats. All other review of systems are negative. EMERGENCY DEPARTMENT COURSE: In the emergency department, the patient was started on antibiotics, including p.o. vancomycin and Flagyl. She was given 1 L of normal saline. Also, given fentanyl 100 mcg for her pain. For her nausea, she was given Zofran 4 mg IV. She had a CT of the abdomen and pelvis done, which showed no acute abnormality. She had chronic cystic abnormalities of both kidneys and appear unchanged. Noted to have scattered colonic diverticula. She had laboratory studies done showing a normal blood count. BUN slightly elevated at 22, creatinine 1.09, GFR 49, glucose 173, and calcium 9.1. LFTs unremarkable. CK 49. Lipase normal. PAST MEDICAL HISTORY: 1. Diabetes mellitus. 2. Hypertension. 3. Hyperlipidemia. 4. History of colon cancer. 5. History of breast cancer. 6. History of asthma. 7. History of Hodgkin lymphoma in 2000. 8. Anxiety. 9. Depression. PAST SURGICAL HISTORY: 1. Appendectomy. 2. Colon resection. 3. Bilateral mastectomy. SOCIAL HISTORY: Patient is fully independent and mobilizes independently. She lives at home alone. Denies any heavy alcohol consumption. Denies any tobacco use. No drug use. FAMILY HISTORY: Noncontributory. ALLERGIES: MORPHINE CAUSES DIFFICULTY BREATHING. CURRENT MEDICATIONS: 1. Tradjenta. 2. Simvastatin. 3. Alprazolam. 4. Linzess. 5. Lisinopril. 6. Tylenol with Codeine. 7. Vancomycin. 8. Triamterene/hydrochlorothiazide. 9. Venlafaxine. 10. Levothyroxine. 11. Aspirin. PHYSICAL EXAMINATION: GENERAL: Patient appears well developed, well nourished, is in no acute distress. VITAL SIGNS: Temperature 98.2, pulse 97, respirations 18, blood pressure 110/56, and O2 saturation 96% on room air. HEENT: Normocephalic and atraumatic. Pupils are equal, round, and reactive to light. Sclerae without icterus. Oropharynx is clear. NECK: Supple. LUNGS: Clear to auscultation bilaterally without any wheezes, rales, or rhonchi. CARDIAC: Regular rate and rhythm. ABDOMEN: Soft, nondistended. Mild discomfort in the left lower quadrant with deep palpation. No guarding or rigidity. No renal angle tenderness. EXTREMITIES: No lower leg swelling or edema. Patient does have a small superficial wound to the left calf, which she states is from sutures that recently came out. She had sutures due to laceration from a piece of furniture at home. No surrounding erythema or warmth. No bleeding or discharge. NEUROLOGIC: Alert and oriented x3. No neuro deficits on exam. INVESTIGATIONS: As mentioned above in HPI. IMPRESSION AND PLAN: Ms. Lynch is a 74-year-old woman, who is being admitted for management of the following. 1. Clostridium difficile. Patient was started on vancomycin and Flagyl in the emergency department, which we will continue. She is known to have a recent infection with Clostridium difficile in September 2019 and states her symptoms are exactly like what she experienced in the past. She had Clostridium difficile testing done by her PCP, which came back positive. We will give gentle hydration. Clear liquid diet, to be advanced as tolerated. 2. Nausea. No further vomiting since yesterday. Continue antiemetics. As mentioned, clear liquid diet, to be advanced as tolerated. 3. Abdominal pain. We will continue with fentanyl, which the patient states worked really well for her pain. She does mention symptoms of urinary hesitancy with some relief in suprapubic discomfort after having emptied her bladder fully. We will obtain UA and urine culture. We will also obtain a postvoid bladder scan to assess for urinary retention. 4. Diabetes mellitus. Monitor blood glucose and initiate sliding scale. Reconcile home medications once verified. 5. Hypertension. Monitor blood pressure. Reconcile medications once verified. 6. Gastrointestinal prophylaxis with famotidine. 7. Insomnia. Patient is requesting to resume her Benadryl, which she usually takes at bedtime for sleep. 8. Deep venous thrombosis prophylaxis. Mechanical SCDs. 9. Wound. Patient recently had sutures come out with a superficial wound that appears to be healing. We will consult Wound Care for wound assessment/dressing to ensure this superficial wound does not become infected. 10. Code status. Full. Surrogate decision maker is her daughter, Iris Suarez. Job ID: [id number]
[2019-11-22 00:37] VITALS: BMI 38.0
[2019-11-22] MEDS: Sodium Chloride 0.9% 1,000 ML IV SCH (00:56)
[2019-11-22] MEDS: Vancomycin HCl 25 MG/ML Oral PO SCH ×4 (02:24→20:30)
[2019-11-22 02:43] LABS: #Eosinphils 0.3 thou/uL (0.0-0.7); #Lymphocytes 1.9 thou/uL (1.20-3.40); #Monocytes 0.6 thou/uL (0.11-0.59); #Neutrophils 4.3 thou/uL (1.40-6.50); %Basophils 0.5 % (0.0-1.0); %Eosinophils 4.7 % (0.0-10.0); %Lymphocytes 26.4 % (21.0-51.0); %Monocytes 8.6 % (0.0-10.0); %Neutrophils 59.8 % (42.0-75.0); Mean Corpuscular HGB CONC 32.5 g/dL (32.0-36.0); Mean Corpuscular Hemoglobin 29.6 pg (27.0-31.0); Mean Corpuscular Volume 90.9 fL (78.0-98.0); Mean Platelet Volume 7.6 fL (7.4-10.4); Platelet Count 168 thou/uL (130-400); Red Blood Cell (RBC) Count 3.73 mill/uL (4.20-5.40); White Blood Cell (WBC) Count 7.2 thou/uL (4.8-10.8)
[2019-11-22 03:12] LABS: ALT (SGPT) 18 U/L (8-55); AST (SGOT) 19 U/L (5-34); Albumin 3.3 g/dL (3.4-4.8); Alkaline Phosphatase 63 U/L (40-110); Anion Gap 11 mmol/L (10-20); BUN (Urea Nitrogen) 22 mg/dL (9.8-20.1); Bilirubin, Total 0.2 mg/dL (0.2-1.2); Calc. Creatinine Clearance 77 mL/min (70-130); Calcium 8.3 mg/dL (7.8-10.44); Carbon Dioxide 22 mmol/L (23-31); Chloride 107 mmol/L (98-107); Estimated GFR-MDRD 58; Globulin 2.6 g/dL (2.4-3.5); Glucose 141 mg/dL (83-110); Potassium 4.3 mmol/L (3.5-5.1); Protein, Total 5.9 g/dL (6.0-8.3); Sodium 136 mmol/L (136-145)
[2019-11-22] MEDS: Famotidine/PF 20 mg/2ml Vial SLOW IVP SCH ×2 (08:27→20:30)
[2019-11-22] MEDS: metroNIDAZOLE 500 MG TAB PO SCH ×3 (08:27→20:30)
[2019-11-22 09:13] LABS: Bacteria/HPF None Seen HPF (None Seen); Bilirubin Negative (Negative); Blood, Urine Negative (Negative); Clarity Clear (Clear); Glucose, Urine (Dipstick) Normal (Negative); Ketone, Urine Negative (Negative); Leukocyte 25 Leu/uL (Negative); Nitrite Negative (Negative); Protein, Urine (Dipstick) Negative (Neg-Trace); RBC/HPF 0-3 HPF (0-3); Specific Gravity, Urine 1.027 (1.002-1.036); Squamous Epithelial 0-3 HPF (0-3); Urobilinogen Normal mg/dL (Less than 2); WBC/HPF 0-3 HPF (0-3)
[2019-11-22 09:20] LABS: Urine Culture Reflex Yes Yes
[2019-11-22] MEDS: HYDROcodone/Acetaminophen 5/325 mg Tablet PO PRN ×3 (11:19→23:29)
--- NOTE | 2019-11-22 13:01 | PDOC.HOSPP ---
- Subjective Subjective: pt seen and examined report her diarrhea is improving however still ongoing , tolerating clear diet assking to advance no fever or chills or new complains today - Objective Vital Signs & Weight: Vital Signs (12 hours) Temp Pulse Resp BP Pulse Ox 11/22/19 09:13 97.9 F 99 20 115/77 98 11/22/19 04:00 98.3 F 96 16 98/62 96 Weight Admit Weight 201 lb Weight 201 lb 8 oz Result Diagrams: 11/22/19 02:35 11/22/19 02:35 Hospitalist ROS - Medication Medications: Active Medications Generic Name Dose Route Start Last Admin Trade Name Freq PRN Reason Stop Dose Admin Hydrocodone Bitart/Acetaminophen 1 tab 11/22/19 10:29 11/22/19 11:19 [place] 5/325 PO 1 tab Q6H PRN Administration Pain Diphenhydramine HCl 25 mg 11/21/19 23:02 11/22/19 03:17 Benadryl PO 25 mg HSPRN PRN Administration Itching & Insomnia Famotidine 20 mg 11/22/19 09:00 11/22/19 08:27 Pepcid SLOW IVP 20 mg Q12HR TONYA Administration Sodium Chloride 1,000 mls @ 50 mls/hr 11/21/19 23:00 11/22/19 00:56 Normal Saline 0.9% IV 1,000 mls .Q20H TONYA Administration Insulin Human Lispro 0 units 11/21/19 23:02 11/22/19 00:58 Humalog SC 2 unit .BEDTIME SLIDING SC PRN Administration Bedtime Correctional Scale Metronidazole 500 mg 11/22/19 09:00 11/22/19 08:27 Flagyl PO 500 mg TID TONYA Administration Vancomycin HCl 125 mg 11/22/19 02:00 11/22/19 08:28 First Vancomycin PO 12/02/19 02:01 125 mg 0200,0800,1400,2000 TONYA Administration - Exam General Appearance: NAD Eye: PERRL ENT: normocephalic atraumatic Neck: supple Heart: RRR Respiratory: CTAB Gastrointestinal: soft, tender to palpation Hosp A/P (1) C. difficile colitis Code(s): A04.72 - ENTEROCOLITIS D/T CLOSTRIDIUM DIFFICILE, NOT SPCF RECUR Status: Acute (2) Diabetes mellitus Code(s): E11.9 - TYPE 2 DIABETES MELLITUS WITHOUT COMPLICATIONS Status: Acute (3) Hyperlipidemia Code(s): E78.5 - HYPERLIPIDEMIA, UNSPECIFIED Status: Acute (4) Hypertension Code(s): I10 - ESSENTIAL (PRIMARY) HYPERTENSION Status: Acute - Plan pt responding well to the treatment will cont with po vanc and flagl advance diet today moniotr electrolytes and replace cont rest of home meds full code dvt ppx plan discussed with ot hopefully home tomorrow if tolerating po intake and improved diarrhea
[2019-11-22 14:10] LABS: #Basophils 0.1 thou/uL (0.0-0.2); #Eosinphils 0.4 thou/uL (0.0-0.7); #Lymphocytes 2.1 thou/uL (1.20-3.40); #Monocytes 0.4 thou/uL (0.11-0.59); #Neutrophils 3.3 thou/uL (1.40-6.50); %Basophils 1.1 % (0.0-1.0); %Eosinophils 6.2 % (0.0-10.0); %Lymphocytes 33.2 % (21.0-51.0); %Monocytes 6.9 % (0.0-10.0); %Neutrophils 52.6 % (42.0-75.0); Hemoglobin 11.5 g/dL (12.0-16.0); Mean Corpuscular Volume 93.4 fL (78.0-98.0); Mean Platelet Volume 7.9 fL (7.4-10.4); Platelet Count 161 thou/uL (130-400); RBC Distribution Width 13.2 % (11.5-14.5); Red Blood Cell (RBC) Count 3.98 mill/uL (4.20-5.40); White Blood Cell (WBC) Count 6.2 thou/uL (4.8-10.8)
[2019-11-22 14:30] LABS: Anion Gap 12 mmol/L (10-20); BUN (Urea Nitrogen) 15 mg/dL (9.8-20.1); Calc. Creatinine Clearance 85 mL/min (70-130); Calcium 8.3 mg/dL (7.8-10.44); Carbon Dioxide 20 mmol/L (23-31); Chloride 106 mmol/L (98-107); Estimated GFR-MDRD 65; Glucose 242 mg/dL (83-110); Potassium 4.6 mmol/L (3.5-5.1); Sodium 133 mmol/L (136-145)
[2019-11-22] MEDS: Ondansetron ODT 4 MG TAB PO PRN (20:30)
[2019-11-23] MEDS: Vancomycin HCl 25 MG/ML Oral PO SCH ×3 (02:00→13:59)
[2019-11-23] MEDS: Sodium Chloride 0.9% 1,000 ML IV SCH ×2 (07:28→14:14)
[2019-11-23 07:50] VITALS: TEMP 97.9
[2019-11-23] MEDS: Famotidine/PF 20 mg/2ml Vial SLOW IVP SCH (08:10)
[2019-11-23] MEDS: HYDROcodone/Acetaminophen 5/325 mg Tablet PO PRN (08:10)
[2019-11-23] MEDS: metroNIDAZOLE 500 MG TAB PO SCH ×2 (08:10→13:59)
[2019-11-23 11:28] VITALS: BP 130/79
[2019-11-23] MEDS: Ondansetron ODT 4 MG TAB PO PRN (11:35)
== END 2019-11-23 14:27 | disposition home or self-care (01) ==
LOC: ERS 17:39 → T4-A 23:07
PROVIDERS: ADMIT Internal Medicine; ATTEND Internal Medicine
DX: A04.72 Enterocolitis due to Clostridium difficile, not specified as recurrent (principal); E11.9 Type 2 diabetes mellitus without complications; E78.5 Hyperlipidemia, unspecified; I10 Essential (primary) hypertension; J45.909 Unspecified asthma, uncomplicated; F41.9 Anxiety disorder, unspecified; F32.9 Major depressive disorder, single episode, unspecified; G47.00 Insomnia, unspecified; S80.922D Unspecified superficial injury of left lower leg, subsequent encounter; Z85.038 Personal history of other malignant neoplasm of large intestine; Z85.3 Personal history of malignant neoplasm of breast; Z85.71 Personal history of Hodgkin lymphoma; Z79.4 Long term (current) use of insulin; Z79.82 Long term (current) use of aspirin; Z79.899 Other long term (current) drug therapy; Z88.5 Allergy status to narcotic agent; X58.XXXD Exposure to other specified factors, subsequent encounter
CPT/HCPCS: 36415; 51798; 74177; 80053; 81001; 82550; 83690; 83735; 85025; 87086; 96361; 96374; 96375; 96376; G0378; J2405; J3010; J3370; Q0162; Q0163; Q9967; S0028

== ENCOUNTER 2020-04-28 14:18 | Outpatient (CLI) | payer MEDICARE ==
--- NOTE | 2020-04-28 14:55 | RAD ---
XR Chest Pa Lat STANDARD History: Shortness of breath Comparison: None. Findings: Multiple surgical clips left hemithorax. Mild degenerative disease lower thoracic spine. Pulmonary arteries are distended. No confluent airspace consolidation, pneumothorax or effusion. Impression: Chronic findings. No acute intrathoracic abnormality.
--- NOTE | 2020-04-28 14:57 | RAD ---
XR Lumbar Spine 2 Or 3 View History: Low back pain Comparison: CT abdomen and pelvis November 2019 Findings: No acute fracture. Similar grade 2 L4/L5 anterolisthesis due to severe facet arthrosis. Jero gical clips throughout the pelvis. Obturator rings are intact. Moderate degenerative changes both SI joints. Advanced degenerative disc space height loss at L3-4 and L4-5. 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
== END 2020-04-28 14:19 | disposition home or self-care (01) ==
LOC: BICRAD 14:18
PROVIDERS: ATTEND Physician Assistant
DX: M54.5 Low back pain (principal); R06.02 Shortness of breath; M47.816 Spondylosis without myelopathy or radiculopathy, lumbar region; M43.16 Spondylolisthesis, lumbar region; Z86.19 Personal history of other infectious and parasitic diseases
CPT/HCPCS: 36415; 71046; 72100; 85379

== ENCOUNTER 2020-08-04 10:04 | Inpatient (IN) | payer MEDICARE ==
[2020-08-04 10:36] LABS: #Basophils 0.1 thou/uL (0.0-0.2); #Eosinphils 0.5 thou/uL (0.0-0.7); #Lymphocytes 2.7 thou/uL (1.20-3.40); #Monocytes 0.8 thou/uL (0.11-0.59); #Neutrophils 5.8 thou/uL (1.40-6.50); %Eosinophils 5.4 % (0.0-10.0); %Lymphocytes 27.3 % (21.0-51.0); %Monocytes 8.1 % (0.0-10.0); %Neutrophils 58.3 % (42.0-75.0); Hemoglobin 13.2 g/dL (12.0-16.0); Mean Corpuscular HGB CONC 32.4 g/dL (32.0-36.0); Mean Corpuscular Volume 89.8 fL (78.0-98.0); Mean Platelet Volume 7.6 fL (7.4-10.4); Platelet Count 231 thou/uL (130-400); RBC Distribution Width 12.6 % (11.5-14.5); Red Blood Cell (RBC) Count 4.55 mill/uL (4.20-5.40); White Blood Cell (WBC) Count 9.9 thou/uL (4.8-10.8)
[2020-08-04 10:57] LABS: ALT (SGPT) 19 U/L (8-55); AST (SGOT) 22 U/L (5-34); Albumin 3.9 g/dL (3.4-4.8); Alkaline Phosphatase 62 U/L (40-110); Anion Gap 15 mmol/L (10-20); BUN (Urea Nitrogen) 46 mg/dL (9.8-20.1); Bilirubin, Total 0.4 mg/dL (0.2-1.2); Calc. Creatinine Clearance 0 mL/min (70-130); Calcium 9.3 mg/dL (7.8-10.44); Carbon Dioxide 24 mmol/L (23-31); Chloride 100 mmol/L (98-107); Globulin 3.4 g/dL (2.4-3.5); Glucose 172 mg/dL (83-110); Potassium 4.7 mmol/L (3.5-5.1); Protein, Total 7.3 g/dL (5.8-8.1); Sodium 134 mmol/L (136-145)
[2020-08-04 11:20] LABS: Bacteria/HPF 1+ HPF (None Seen); Bilirubin Negative (Negative); Blood, Urine 1+ (Negative); Clarity Extra Turbid (Clear); Glucose, Urine (Dipstick) Normal (Negative); Ketone, Urine Negative (Negative); Leukocyte 500 Leu/uL (Negative); Nitrite Negative (Negative); Protein, Urine (Dipstick) 20 mg/dL (Neg-Trace); Specific Gravity, Urine 1.017 (1.002-1.036); Squamous Epithelial None Seen HPF (0-3); Urobilinogen Normal mg/dL (Less than 2); WBC/HPF Greater than 50 HPF (0-3); pH, Urine 5.5 (5.0-9.0)
[2020-08-04] MEDS ORDERED: Ondansetron PF 4 MG/2 ML Vial ONE (11:24)
[2020-08-04] MEDS ORDERED: Acetaminophen 500 MG TAB ONE (12:55)
[2020-08-04] MEDS ORDERED: Dextrose 50% Abboject 50 ML SYRINGE SLOW IVP PRN (14:36)
[2020-08-04] MEDS ORDERED: HumaLOG 300 UNITS/3 ML VIAL SC PRN (14:36)
[2020-08-04] MEDS ORDERED: Dextrose 5% in Water 1,000 ML IV PRN (14:36)
[2020-08-04] MEDS: Sodium Chloride 0.9% 1,000 ML IV SCH (16:52)
[2020-08-04] MEDS ORDERED: traMADol HCl 50 MG TAB PO PRN (16:53)
[2020-08-04] MEDS: HumaLOG 300 UNITS/3 ML VIAL SC PRN (17:18)
[2020-08-04 18:32] VITALS: BMI 37.0
[2020-08-04] MEDS: Atorvastatin Calcium 40 MG TAB PO SCH (20:13)
[2020-08-04] MEDS: Venlafaxine HCl XR 150 MG CAP PO SCH (20:13)
[2020-08-04] MEDS: Lisinopril 20 MG TAB PO SCH (20:13)
[2020-08-04] MEDS: traMADol HCl 50 MG TAB PO PRN (20:14)
[2020-08-05] MEDS ORDERED: Meclizine HCl 25 MG TAB PO PRN (00:33)
[2020-08-05] MEDS: HumaLOG 300 UNITS/3 ML VIAL SC PRN ×3 (01:48→17:11)
[2020-08-05] MEDS: traMADol HCl 50 MG TAB PO PRN ×2 (02:01→17:23)
[2020-08-05 04:20] LABS: SARS-CoV-2 PCR by NAA Not Detected (NotDetected)
[2020-08-05] MEDS: Levothyroxine Sodium 75 MCG TAB PO SCH (04:51)
[2020-08-05] MEDS: Sodium Chloride 0.9% 1,000 ML IV SCH ×2 (04:51→17:03)
[2020-08-05 06:03] LABS: #Basophils 0.1 thou/uL (0.0-0.2); #Eosinphils 0.5 thou/uL (0.0-0.7); #Lymphocytes 2.5 thou/uL (1.20-3.40); #Monocytes 0.7 thou/uL (0.11-0.59); #Neutrophils 5.5 thou/uL (1.40-6.50); %Basophils 0.6 % (0.0-1.0); %Eosinophils 5.4 % (0.0-10.0); %Monocytes 7.9 % (0.0-10.0); Hemoglobin 11.8 g/dL (12.0-16.0); Mean Corpuscular HGB CONC 31.5 g/dL (32.0-36.0); Mean Corpuscular Hemoglobin 28.5 pg (27.0-31.0); Mean Corpuscular Volume 90.5 fL (78.0-98.0); Mean Platelet Volume 7.8 fL (7.4-10.4); Platelet Count 183 thou/uL (130-400); RBC Distribution Width 12.6 % (11.5-14.5); Red Blood Cell (RBC) Count 4.14 mill/uL (4.20-5.40); White Blood Cell (WBC) Count 9.3 thou/uL (4.8-10.8)
[2020-08-05 06:21] LABS: Anion Gap 14 mmol/L (10-20); BUN (Urea Nitrogen) 42 mg/dL (9.8-20.1); Calc. Creatinine Clearance 48 mL/min (70-130); Calcium 8.6 mg/dL (7.8-10.44); Carbon Dioxide 19 mmol/L (23-31); Chloride 106 mmol/L (98-107); Glucose 173 mg/dL (83-110); Potassium 4.9 mmol/L (3.5-5.1); Sodium 134 mmol/L (136-145)
[2020-08-05] MEDS ORDERED: FLU VACC QS2020-21(65YR UP)/PF 240 MCG/0.7 ML SYRINGE IM ONE (09:00)
[2020-08-05] MEDS: Ondansetron ODT 4 MG TAB PO PRN ×2 (10:57→17:02)
[2020-08-05] MEDS ORDERED: Magnesium 2 GM/50 ML 2 GM in Premix Bag 1 BAG IVPB SCH (11:45)
[2020-08-05] MEDS: Venlafaxine HCl XR 150 MG CAP PO SCH (20:17)
[2020-08-05] MEDS: Atorvastatin Calcium 40 MG TAB PO SCH (20:18)
[2020-08-05] MEDS: Lisinopril 20 MG TAB PO SCH (20:19)
[2020-08-05] MEDS ORDERED: traMADol HCl 50 MG TAB PO SCH (21:15)
[2020-08-05] MEDS: Lidocaine 5% Patch TD SCH (21:29)
[2020-08-05] MEDS ORDERED: Promethazine HCl 12.5 MG in Sodium Chloride 0.9% 50 ML IVPB SCH (21:30)
[2020-08-06] MEDS: Sodium Chloride 0.9% 1,000 ML IV SCH ×2 (01:38→10:49)
[2020-08-06] MEDS: Levothyroxine Sodium 75 MCG TAB PO SCH (05:34)
[2020-08-06] MEDS: HumaLOG 300 UNITS/3 ML VIAL SC PRN ×2 (05:36→11:38)
[2020-08-06] MEDS ORDERED: Calcium Carbonate 500 MG ChewTAB PO PRN (07:27)
[2020-08-06] MEDS ORDERED: Non-Formulary Item 1 EACH (Albuterol Sulfate [Proair Hfa] 8.5 GM Hfa.Aer.Ad) INH PRN (07:27)
[2020-08-06] MEDS ORDERED: Albuterol 200 PUFF (6.7GM INHALER) INH PRN (07:31)
[2020-08-06] MEDS: Transdermal Patch Removal TOP SCH (08:12)
[2020-08-06] MEDS ORDERED: Lidocaine 5% Patch TD SCH (09:00)
[2020-08-06 09:10] LABS: Anion Gap 11 mmol/L (10-20); BUN (Urea Nitrogen) 28 mg/dL (9.8-20.1); Calc. Creatinine Clearance 58 mL/min (70-130); Calcium 8.5 mg/dL (7.8-10.44); Carbon Dioxide 24 mmol/L (23-31); Chloride 106 mmol/L (98-107); Glucose 182 mg/dL (83-110); Potassium 4.5 mmol/L (3.5-5.1); Sodium 136 mmol/L (136-145)
[2020-08-06] MEDS: traMADol HCl 50 MG TAB PO PRN ×2 (10:48→18:34)
[2020-08-06] MEDS: Ondansetron PF 4 MG/2 ML Vial IVP PRN ×2 (11:38→18:34)
[2020-08-06] MEDS: Lisinopril 20 MG TAB PO SCH ×2 (20:21→20:29)
[2020-08-06] MEDS: Atorvastatin Calcium 40 MG TAB PO SCH (20:21)
[2020-08-06] MEDS: Lidocaine 5% Patch TD SCH (20:24)
[2020-08-06] MEDS: Venlafaxine HCl XR 150 MG CAP PO SCH (20:30)
[2020-08-06] MEDS ORDERED: Promethazine HCl 12.5 MG in Sodium Chloride 0.9% 50 ML IVPB SCH (20:45)
[2020-08-06] MEDS ORDERED: Transdermal Patch Removal TOP SCH (21:00)
[2020-08-07] MEDS: Sodium Chloride 0.9% 1,000 ML IV SCH (00:13)
[2020-08-07] MEDS: Levothyroxine Sodium 75 MCG TAB PO SCH (05:49)
[2020-08-07] MEDS: traMADol HCl 50 MG TAB PO PRN (08:08)
[2020-08-07] MEDS: Transdermal Patch Removal TOP SCH (08:09)
[2020-08-07] MEDS: HumaLOG 300 UNITS/3 ML VIAL SC PRN (11:52)
[2020-08-07 13:46] VITALS: BP 108/70; TEMP 97.9
== END 2020-08-07 13:38 | disposition home or self-care (01) | DRG 683 ==
LOC: SUATTDRO 10:04 → ERS 10:04 → INTOOBSV 12:33 → T4-A 12:33 → OBSVTOIN 08-05 15:39
PROVIDERS: ADMIT Internal Medicine; ATTEND Internal Medicine
DX: N17.9 Acute kidney failure, unspecified (principal); I13.0 Hypertensive heart and chronic kidney disease with heart failure and stage 1 through stage 4 chronic kidney disease, or unspecified chronic kidney disease; N10 Acute pyelonephritis; E78.5 Hyperlipidemia, unspecified; J45.909 Unspecified asthma, uncomplicated; F41.9 Anxiety disorder, unspecified; D64.9 Anemia, unspecified; E11.22 Type 2 diabetes mellitus with diabetic chronic kidney disease; N18.30 Chronic kidney disease, stage 3 unspecified; F32.9 Major depressive disorder, single episode, unspecified; E03.9 Hypothyroidism, unspecified; Z20.822 Contact with and (suspected) exposure to COVID-19; R00.2 Palpitations; Z88.6 Allergy status to analgesic agent; Z79.82 Long term (current) use of aspirin; Z85.72 Personal history of non-Hodgkin lymphomas; Z85.3 Personal history of malignant neoplasm of breast; Z92.21 Personal history of antineoplastic chemotherapy; Z92.3 Personal history of irradiation; I50.9 Heart failure, unspecified
CPT/HCPCS: 36415; 36416; 74176; 80048; 80053; 81003; 81015; 83735; 84443; 85025; 87635; 93306; 96365; 96366; 96375; G0378; J1815; J1956; J2405; J2550; J3475; Q0162; U0003; U0005

== ENCOUNTER 2022-08-17 21:23 | Inpatient (IN) | payer MEDICARE, OTHER, SELFPAY ==
[2022-08-17] MEDS ORDERED: Magnesium 2 GM/50 ML BAG (IN WATER) ONE (21:40)
[2022-08-17] MEDS ORDERED: cefTRIAXone (ROCEPHIN) 1 GM VIAL ONE (21:40)
[2022-08-17] MEDS ORDERED: Albuterol 2.5 MG/0.5 ML NEB ONE (21:49)
[2022-08-17] MEDS ORDERED: Ondansetron PF 4 MG/2 ML Vial ONE ×2 (22:07→22:09)
[2022-08-17 22:10] LABS: #Basophils 0.1 thou/uL (0.0-0.2); #Eosinphils 0.4 thou/uL (0.0-0.7); #Lymphocytes 3.1 thou/uL (1.20-3.40); #Monocytes 0.8 thou/uL (0.11-0.59); #Neutrophils 6.5 thou/uL (1.40-6.50); %Basophils 0.5 % (0.0-1.0); %Eosinophils 4.1 % (0.0-10.0); %Lymphocytes 28.6 % (21.0-51.0); %Monocytes 7.4 % (0.0-10.0); %Neutrophils 59.5 % (42.0-75.0); Hemoglobin 12.9 g/dL (12.0-16.0); Mean Corpuscular HGB CONC 32.6 g/dL (32.0-36.0); Mean Corpuscular Hemoglobin 30.5 pg (27.0-31.0); Mean Corpuscular Volume 93.6 fl (78.0-98.0); Mean Platelet Volume 7.7 fL (7.4-10.4); Platelet Count 210 10x3/uL (130-400); RBC Distribution Width 12.6 % (11.5-14.5); Red Blood Cell (RBC) Count 4.22 mill/uL (4.20-5.40); White Blood Cell (WBC) Count 10.8 10x3/uL (4.8-10.8)
[2022-08-17 22:28] LABS: ALT (SGPT) 13 U/L (8-55); AST (SGOT) 15 U/L (5-34); Alkaline Phosphatase 68 U/L (40-110); Anion Gap 14 mmol/L (10-20); BUN (Urea Nitrogen) 29 mg/dL (9.8-20.1); Bilirubin, Total 0.3 mg/dL (0.2-1.2); Calc. Creatinine Clearance 0 mL/min (70-130); Calcium 9.2 mg/dL (7.8-10.44); Carbon Dioxide 25 mmol/L (23-31); Chloride 102 mmol/L (98-107); Estimated GFR 38; Globulin 3.1 g/dL (2.4-3.5); Glucose 298 mg/dL (83-110); Potassium 4.5 mmol/L (3.5-5.1); Protein, Total 7.1 g/dL (5.8-8.1); Sodium 136 mmol/L (136-145)
[2022-08-17] MEDS ORDERED: Metoclopramide HCl 10 MG/2 ML VIAL ONE (22:47)
[2022-08-17] MEDS ORDERED: Dextrose 50% Abboject 50 ML SYRINGE SLOW IVP PRN (23:22)
[2022-08-17] MEDS ORDERED: Dextrose 5% in Water 1,000 ML IV PRN (23:22)
[2022-08-17] MEDS ORDERED: Azithromycin 500 MG in Sodium Chloride 0.9% 250 ML 250 ML IVPB SCH (23:30)
[2022-08-17] MEDS ORDERED: Insulin Glargine 30 UNITS/0.3 ML VIAL SC SCH (23:30)
[2022-08-17 23:54] LABS: Hemoglobin A1c 7.5 % (4.0-6.0)
[2022-08-18 00:25] LABS: Actual Bicarbonate (HCO3a) 21.5 mEq/L (22-28); Analyzer IN Cardio ER; Base Excess (BEa) -3.3 mEq/L (-2.0 to +3.0); CO2 Tension 37.7 mmHg (35.0-45.0); Calcium, Ionized (arterial) 1.17 mmol/L (1.12-1.30); Carboxyhemoglobin (COHb) 0.3 gm% (0.0-3.0); Hemoglobin (Hb) 13.2 g/dL (12.0-16.0); O2 Tension (PaO2), arterial 87.7 mmHg (> 70.0); Potassium - ABG Lab 5.05 mmol/L (3.70-5.30); pH, Arterial 7.37 (7.35-7.45)
[2022-08-18 00:30] LABS: Puncture Site RRA
[2022-08-18 00:31] LABS: ALV-art Gradient 36.295 mmHg (0-20)
[2022-08-18] MEDS ORDERED: Azithromycin 500 MG VIAL ONE (00:41)
[2022-08-18] MEDS: cefTRIAXone\\ROCEPHIN 1 GM in Sodium Chloride 0.9% 100 ML IVPB SCH ×2 (01:13→23:27)
[2022-08-18] MEDS: Ipratropium/Albuterol 3 ML NEB NEB SCH ×4 (01:25→19:01)
[2022-08-18] MEDS: methylPREDNISolone Sod Succ 40 MG VIAL IVP SCH ×4 (01:46→23:27)
[2022-08-18] MEDS: HumaLOG 300 UNITS/3 ML VIAL SC PRN ×4 (01:47→17:52)
[2022-08-18 02:03] LABS: Troponin I Less than 0.010 ng/mL (< 0.028)
[2022-08-18] MEDS ORDERED: Electrolyte Replacement Protocol 1 EACH FS SCH (02:30)
[2022-08-18 04:01] LABS: #Lymphocytes 0.5 thou/uL (1.20-3.40); #Monocytes 0.1 thou/uL (0.11-0.59); #Neutrophils 7.5 thou/uL (1.40-6.50); %Basophils 0.1 % (0.0-1.0); %Eosinophils 0.2 % (0.0-10.0); %Monocytes 1.2 % (0.0-10.0); %Neutrophils 92.4 % (42.0-75.0); Hemoglobin 12.1 g/dL (12.0-16.0); Mean Corpuscular HGB CONC 31.3 g/dL (32.0-36.0); Mean Corpuscular Hemoglobin 29.5 pg (27.0-31.0); Mean Corpuscular Volume 94.4 fl (78.0-98.0); Mean Platelet Volume 7.5 fL (7.4-10.4); Platelet Count 199 10x3/uL (130-400); RBC Distribution Width 12.5 % (11.5-14.5); White Blood Cell (WBC) Count 8.1 10x3/uL (4.8-10.8)
[2022-08-18 04:26] LABS: ALT (SGPT) 14 U/L (8-55); AST (SGOT) 14 U/L (5-34); Albumin 3.7 g/dL (3.4-4.8); Alkaline Phosphatase 60 U/L (40-110); Anion Gap 16 mmol/L (10-20); BUN (Urea Nitrogen) 31 mg/dL (9.8-20.1); Bilirubin, Total 0.4 mg/dL (0.2-1.2); Calc. Creatinine Clearance 50 mL/min (70-130); Calcium 8.7 mg/dL (7.8-10.44); Carbon Dioxide 19 mmol/L (23-31); Chloride 104 mmol/L (98-107); Estimated GFR 38; Globulin 2.9 g/dL (2.4-3.5); Potassium 5.1 mmol/L (3.5-5.1); Protein, Total 6.6 g/dL (5.8-8.1); Sodium 134 mmol/L (136-145)
[2022-08-18 04:35] LABS: Troponin I 0.025 ng/mL (< 0.028)
[2022-08-18 04:36] LABS: Glucose 417 mg/dL (83-110)
[2022-08-18] MEDS: Levothyroxine Sodium 75 MCG TAB PO SCH (05:45)
[2022-08-18] MEDS: Aspirin 81 mg Enteric Coated Tablet PO SCH (08:51)
[2022-08-18] MEDS: Heparin 5,000 UNITS/ML VIAL SC SCH ×2 (08:51→20:54)
[2022-08-18] MEDS ORDERED: Venlafaxine 75 MG TAB PO SCH (11:30)
[2022-08-18] MEDS ORDERED: NPH, Human Insulin Isophane 300 UNIT/3 ML VIAL SC SCH (12:00)
[2022-08-18] MEDS ORDERED: Insulin NPH Human Isophane 100 UNIT/ML (10 ML VIAL) SC SCH ×3 (12:00→21:00)
[2022-08-18 18:08] LABS: RBC/HPF 0-3 HPF (0-3)
[2022-08-18 18:09] LABS: Bacteria/HPF 1+ HPF (None Seen)
[2022-08-18] MEDS: Lisinopril 20 MG TAB PO SCH (20:54)
[2022-08-18] MEDS: Venlafaxine HCl XR 150 MG CAP PO SCH (20:56)
[2022-08-18] MEDS ORDERED: Insulin Glargine 30 UNITS/0.3 ML VIAL SC SCH (21:00)
[2022-08-18] MEDS: GUAIFENESIN SF SOLN 200 MG/10 ML UDCUP PO PRN (22:05)
[2022-08-18] MEDS: Senokot S 8.6-50 MG TAB PO PRN (22:05)
[2022-08-19] MEDS: Ipratropium/Albuterol 3 ML NEB NEB SCH ×4 (00:04→19:33)
[2022-08-19] MEDS: Levothyroxine Sodium 75 MCG TAB PO SCH (05:32)
[2022-08-19 06:42] LABS: #Lymphocytes 0.9 thou/uL (1.20-3.40); #Monocytes 0.2 thou/uL (0.11-0.59); %Monocytes 1.6 % (0.0-10.0); %Neutrophils 91.3 % (42.0-75.0); Hemoglobin 11.3 g/dL (12.0-16.0); Mean Corpuscular HGB CONC 32.4 g/dL (32.0-36.0); Mean Corpuscular Hemoglobin 30.4 pg (27.0-31.0); Mean Corpuscular Volume 93.9 fl (78.0-98.0); Mean Platelet Volume 7.7 fL (7.4-10.4); Platelet Count 198 10x3/uL (130-400); RBC Distribution Width 12.5 % (11.5-14.5); Red Blood Cell (RBC) Count 3.71 mill/uL (4.20-5.40); White Blood Cell (WBC) Count 13.1 10x3/uL (4.8-10.8)
[2022-08-19 07:12] LABS: Anion Gap 13 mmol/L (10-20); BUN (Urea Nitrogen) 42 mg/dL (9.8-20.1); Calc. Creatinine Clearance 47 mL/min (70-130); Calcium 8.8 mg/dL (7.8-10.44); Carbon Dioxide 22 mmol/L (23-31); Chloride 103 mmol/L (98-107); Estimated GFR 36; Glucose 329 mg/dL (83-110); Potassium 5.6 mmol/L (3.5-5.1); Sodium 132 mmol/L (136-145)
[2022-08-19] MEDS: GUAIFENESIN SF SOLN 200 MG/10 ML UDCUP PO PRN (08:33)
[2022-08-19] MEDS: Heparin 5,000 UNITS/ML VIAL SC SCH ×2 (08:33→21:03)
[2022-08-19] MEDS: Aspirin 81 mg Enteric Coated Tablet PO SCH (08:33)
[2022-08-19] MEDS ORDERED: Insulin NPH Human Isophane 100 UNIT/ML (10 ML VIAL) SC SCH (09:00)
[2022-08-19] MEDS: HumaLOG 300 UNITS/3 ML VIAL SC PRN ×3 (12:02→17:34)
[2022-08-19] MEDS: Benzonatate 100 MG CAP PO SCH ×2 (14:08→21:02)
[2022-08-19] MEDS: Ipratropium Bromide 0.03% Nasal Inhaler 30 ml Bottle EA NARE SCH (14:39)
[2022-08-19] MEDS ORDERED: Azithromycin 250 MG TAB PO SCH (18:00)
[2022-08-19] MEDS ORDERED: Insulin Glargine 30 UNITS/0.3 ML VIAL SC SCH (21:00)
[2022-08-19] MEDS: Venlafaxine HCl XR 150 MG CAP PO SCH (21:01)
[2022-08-19] MEDS: Lisinopril 20 MG TAB PO SCH (21:03)
[2022-08-19] MEDS: Cefuroxime 250 MG TAB PO SCH (21:22)
[2022-08-20] MEDS: GUAIFENESIN SF SOLN 200 MG/10 ML UDCUP PO PRN (02:49)
[2022-08-20] MEDS: Ipratropium/Albuterol 3 ML NEB NEB SCH ×3 (04:57→15:26)
[2022-08-20] MEDS: Acetaminophen 500 MG TAB PO PRN (05:39)
[2022-08-20] MEDS: Levothyroxine Sodium 75 MCG TAB PO SCH (05:40)
[2022-08-20 06:52] LABS: #Eosinphils 0.1 thou/uL (0.0-0.7); #Lymphocytes 1.5 thou/uL (1.20-3.40); #Monocytes 1.2 thou/uL (0.11-0.59); #Neutrophils 11.3 thou/uL (1.40-6.50); %Basophils 0.1 % (0.0-1.0); %Eosinophils 0.9 % (0.0-10.0); %Lymphocytes 10.9 % (21.0-51.0); %Monocytes 8.5 % (0.0-10.0); %Neutrophils 79.6 % (42.0-75.0); Hemoglobin 11.9 g/dL (12.0-16.0); Mean Corpuscular HGB CONC 32.7 g/dL (32.0-36.0); Mean Corpuscular Volume 94.8 fl (78.0-98.0); Platelet Count 228 10x3/uL (130-400); RBC Distribution Width 12.7 % (11.5-14.5); Red Blood Cell (RBC) Count 3.83 mill/uL (4.20-5.40); White Blood Cell (WBC) Count 14.2 10x3/uL (4.8-10.8)
[2022-08-20 07:17] LABS: Anion Gap 13 mmol/L (10-20); BUN (Urea Nitrogen) 48 mg/dL (9.8-20.1); Calc. Creatinine Clearance 44 mL/min (70-130); Calcium 8.8 mg/dL (7.8-10.44); Carbon Dioxide 23 mmol/L (23-31); Chloride 102 mmol/L (98-107); Estimated GFR 33; Glucose 286 mg/dL (83-110); Potassium 4.5 mmol/L (3.5-5.1); Sodium 133 mmol/L (136-145)
[2022-08-20] MEDS: predniSONE 20 MG TAB PO SCH (08:36)
[2022-08-20] MEDS: Benzonatate 100 MG CAP PO SCH ×3 (08:37→20:12)
[2022-08-20] MEDS: Heparin 5,000 UNITS/ML VIAL SC SCH ×2 (08:37→20:24)
[2022-08-20] MEDS: Aspirin 81 mg Enteric Coated Tablet PO SCH (08:37)
[2022-08-20] MEDS: Senokot S 8.6-50 MG TAB PO PRN (08:38)
[2022-08-20] MEDS: Cefuroxime 250 MG TAB PO SCH ×2 (08:54→21:25)
[2022-08-20] MEDS: Insulin NPH Human Isophane 100 UNIT/ML (10 ML VIAL) SC SCH (10:08)
[2022-08-20] MEDS: HumaLOG 300 UNITS/3 ML VIAL SC PRN ×3 (10:09→20:29)
[2022-08-20] MEDS: guaiFENesin/Codeine 200 mg/20 mg 10 ml Cup PO PRN ×2 (12:15→20:12)
[2022-08-20] MEDS ORDERED: Polyethylene Glycol 3350 17 GM Packet PO PRN (15:04)
[2022-08-20] MEDS: Ipratropium 200 Puff Oral Inhaler INH SCH (19:42)
[2022-08-20] MEDS: Albuterol HFA (OR) 200 PUFF INH INH SCH (19:42)
[2022-08-20] MEDS: Venlafaxine HCl XR 150 MG CAP PO SCH (20:12)
[2022-08-20] MEDS: Lisinopril 20 MG TAB PO SCH (20:12)
[2022-08-20] MEDS: Bisacodyl 10 MG SUPP PR PRN (20:15)
[2022-08-20] MEDS ORDERED: Insulin Glargine 30 UNITS/0.3 ML VIAL SC SCH ×2 (21:00)
[2022-08-21] MEDS: Ipratropium Bromide 0.03% Nasal Inhaler 30 ml Bottle EA NARE SCH ×4 (00:40→20:40)
[2022-08-21] MEDS: Ipratropium 200 Puff Oral Inhaler INH SCH ×4 (01:08→18:59)
[2022-08-21] MEDS: Albuterol HFA (OR) 200 PUFF INH INH SCH ×4 (01:08→18:59)
[2022-08-21] MEDS: guaiFENesin/Codeine 200 mg/20 mg 10 ml Cup PO PRN ×3 (05:34→20:32)
[2022-08-21] MEDS: HumaLOG 300 UNITS/3 ML VIAL SC PRN ×4 (05:34→20:54)
[2022-08-21] MEDS: Levothyroxine Sodium 75 MCG TAB PO SCH (05:34)
[2022-08-21] MEDS: Acetaminophen 500 MG TAB PO PRN (05:43)
[2022-08-21] MEDS: Bisacodyl 10 MG SUPP PR PRN (05:43)
[2022-08-21 07:00] LABS: #Eosinphils 0.1 thou/uL (0.0-0.7); #Lymphocytes 1.8 thou/uL (1.20-3.40); #Monocytes 0.6 thou/uL (0.11-0.59); #Neutrophils 7.2 thou/uL (1.40-6.50); %Basophils 0.3 % (0.0-1.0); %Eosinophils 0.6 % (0.0-10.0); %Lymphocytes 18.6 % (21.0-51.0); %Monocytes 6.4 % (0.0-10.0); %Neutrophils 74.1 % (42.0-75.0); Hemoglobin 11.5 g/dL (12.0-16.0); Mean Corpuscular HGB CONC 32.6 g/dL (32.0-36.0); Mean Corpuscular Hemoglobin 30.6 pg (27.0-31.0); Mean Corpuscular Volume 93.9 fl (78.0-98.0); Mean Platelet Volume 7.9 fL (7.4-10.4); Platelet Count 213 10x3/uL (130-400); RBC Distribution Width 12.6 % (11.5-14.5); Red Blood Cell (RBC) Count 3.77 mill/uL (4.20-5.40); White Blood Cell (WBC) Count 9.7 10x3/uL (4.8-10.8)
[2022-08-21 07:22] LABS: Anion Gap 12 mmol/L (10-20); BUN (Urea Nitrogen) 38 mg/dL (9.8-20.1); Calc. Creatinine Clearance 57 mL/min (70-130); Calcium 8.9 mg/dL (7.8-10.44); Carbon Dioxide 24 mmol/L (23-31); Chloride 101 mmol/L (98-107); Estimated GFR 43; Glucose 297 mg/dL (83-110); Sodium 133 mmol/L (136-145)
[2022-08-21] MEDS: Albuterol 200 PUFF (6.7GM INHALER) INH PRN ×2 (07:26→12:29)
[2022-08-21] MEDS: predniSONE 20 MG TAB PO SCH (09:15)
[2022-08-21] MEDS: Aspirin 81 mg Enteric Coated Tablet PO SCH (09:15)
[2022-08-21] MEDS: Benzonatate 100 MG CAP PO SCH ×3 (09:15→20:31)
[2022-08-21] MEDS: Polyethylene Glycol 3350 17 GM Packet PO SCH (09:15)
[2022-08-21] MEDS: Cefuroxime 250 MG TAB PO SCH ×2 (09:15→20:31)
[2022-08-21] MEDS: Heparin 5,000 UNITS/ML VIAL SC SCH ×2 (09:15→20:30)
[2022-08-21] MEDS: Insulin NPH Human Isophane 100 UNIT/ML (10 ML VIAL) SC SCH ×3 (09:18→09:23)
[2022-08-21] MEDS: Fluticasone Propionate Nasal Spray 16 gm Bottle NASAL SCH (11:49)
[2022-08-21] MEDS ORDERED: Magnesium 2 GM/50 ML(in water) 2 GM in Premix Bag 1 BAG IVPB SCH (13:00)
[2022-08-21] MEDS ORDERED: Ipratropium Bromide 0.03% Nasal Inhaler 30 ml Bottle EA NARE SCH (16:00)
[2022-08-21] MEDS ORDERED: Budesonide 0.5 MG/2 ML NEB NEB SCH (18:30)
[2022-08-21] MEDS: Mometasone 200 MCG/Formoterol 5 MCG 120 PUFF INHALER INH SCH (18:59)
[2022-08-21] MEDS: Lisinopril 20 MG TAB PO SCH (20:30)
[2022-08-21] MEDS: Venlafaxine HCl XR 150 MG CAP PO SCH (20:31)
[2022-08-21] MEDS: Montelukast Sodium 10 mg Tablet PO SCH (20:31)
[2022-08-21] MEDS: Senokot S 8.6-50 MG TAB PO PRN (20:35)
[2022-08-21] MEDS ORDERED: Insulin Glargine 30 UNITS/0.3 ML VIAL SC SCH (21:00)
[2022-08-22] MEDS: Albuterol HFA (OR) 200 PUFF INH INH SCH ×4 (00:25→18:02)
[2022-08-22] MEDS: Ipratropium 200 Puff Oral Inhaler INH SCH ×5 (00:25→23:34)
[2022-08-22] MEDS: guaiFENesin/Codeine 200 mg/20 mg 10 ml Cup PO PRN ×3 (03:35→20:40)
[2022-08-22] MEDS: Albuterol 200 PUFF (6.7GM INHALER) INH PRN ×3 (03:40→23:34)
[2022-08-22] MEDS: Levothyroxine Sodium 75 MCG TAB PO SCH (05:55)
[2022-08-22 07:24] LABS: #Eosinphils 0.2 thou/uL (0.0-0.7); #Lymphocytes 2.7 thou/uL (1.20-3.40); #Monocytes 0.9 thou/uL (0.11-0.59); #Neutrophils 6.2 thou/uL (1.40-6.50); %Basophils 0.3 % (0.0-1.0); %Lymphocytes 27.2 % (21.0-51.0); %Neutrophils 61.5 % (42.0-75.0); Hemoglobin 11.5 g/dL (12.0-16.0); Mean Corpuscular HGB CONC 32.6 g/dL (32.0-36.0); Mean Corpuscular Hemoglobin 30.5 pg (27.0-31.0); Mean Corpuscular Volume 93.6 fl (78.0-98.0); Mean Platelet Volume 7.1 fL (7.4-10.4); Platelet Count 235 10x3/uL (130-400); RBC Distribution Width 12.3 % (11.5-14.5); Red Blood Cell (RBC) Count 3.77 mill/uL (4.20-5.40); White Blood Cell (WBC) Count 10.1 10x3/uL (4.8-10.8)
[2022-08-22 07:48] LABS: Anion Gap 9 mmol/L (10-20); BUN (Urea Nitrogen) 32 mg/dL (9.8-20.1); Calc. Creatinine Clearance 71 mL/min (70-130); Calcium 8.9 mg/dL (7.8-10.44); Carbon Dioxide 28 mmol/L (23-31); Chloride 104 mmol/L (98-107); Estimated GFR 59; Glucose 65 mg/dL (83-110); Potassium 4.3 mmol/L (3.5-5.1); Sodium 137 mmol/L (136-145)
[2022-08-22] MEDS: Ipratropium Bromide 0.03% Nasal Inhaler 30 ml Bottle EA NARE SCH ×2 (08:27→15:07)
[2022-08-22] MEDS: Polyethylene Glycol 3350 17 GM Packet PO SCH (08:27)
[2022-08-22] MEDS: predniSONE 20 MG TAB PO SCH (08:28)
[2022-08-22] MEDS: Acetaminophen 500 MG TAB PO PRN ×2 (08:28→21:30)
[2022-08-22] MEDS: Aspirin 81 mg Enteric Coated Tablet PO SCH (08:28)
[2022-08-22] MEDS: Benzonatate 100 MG CAP PO SCH ×3 (08:28→20:36)
[2022-08-22] MEDS: Cefuroxime 250 MG TAB PO SCH ×2 (08:29→20:36)
[2022-08-22] MEDS: Insulin NPH Human Isophane 100 UNIT/ML (10 ML VIAL) SC SCH (08:29)
[2022-08-22] MEDS: Heparin 5,000 UNITS/ML VIAL SC SCH ×2 (08:29→20:38)
[2022-08-22] MEDS: Fluticasone Propionate Nasal Spray 16 gm Bottle NASAL SCH (08:29)
[2022-08-22] MEDS: Mometasone 200 MCG/Formoterol 5 MCG 120 PUFF INHALER INH SCH ×2 (08:45→18:02)
[2022-08-22] MEDS: HumaLOG 300 UNITS/3 ML VIAL SC PRN ×4 (12:24→21:02)
[2022-08-22] MEDS: Montelukast Sodium 10 mg Tablet PO SCH (20:36)
[2022-08-22] MEDS: Lisinopril 20 MG TAB PO SCH (20:37)
[2022-08-22] MEDS: Venlafaxine HCl XR 150 MG CAP PO SCH (20:37)
[2022-08-22] MEDS: Insulin Glargine 30 UNITS/0.3 ML VIAL SC SCH (20:38)
[2022-08-23] MEDS: guaiFENesin/Codeine 200 mg/20 mg 10 ml Cup PO PRN ×4 (02:22→22:26)
[2022-08-23] MEDS: Levothyroxine Sodium 75 MCG TAB PO SCH (06:02)
[2022-08-23] MEDS: Albuterol 200 PUFF (6.7GM INHALER) INH PRN (07:21)
[2022-08-23] MEDS: Mometasone 200 MCG/Formoterol 5 MCG 120 PUFF INHALER INH SCH ×2 (07:21→18:38)
[2022-08-23] MEDS: Ipratropium 200 Puff Oral Inhaler INH SCH ×4 (07:23→23:53)
[2022-08-23] MEDS: Albuterol HFA (OR) 200 PUFF INH INH SCH ×5 (07:23→23:53)
[2022-08-23] MEDS: Benzonatate 100 MG CAP PO SCH ×3 (08:38→20:40)
[2022-08-23] MEDS: Aspirin 81 mg Enteric Coated Tablet PO SCH (08:38)
[2022-08-23] MEDS: predniSONE 20 MG TAB PO SCH (08:39)
[2022-08-23] MEDS: Heparin 5,000 UNITS/ML VIAL SC SCH ×2 (08:39→20:41)
[2022-08-23] MEDS: Cefuroxime 250 MG TAB PO SCH ×2 (08:39→20:40)
[2022-08-23] MEDS: Polyethylene Glycol 3350 17 GM Packet PO SCH (08:41)
[2022-08-23] MEDS: Fluticasone Propionate Nasal Spray 16 gm Bottle NASAL SCH (08:54)
[2022-08-23] MEDS: Ipratropium Bromide 0.03% Nasal Inhaler 30 ml Bottle EA NARE SCH ×4 (08:54→20:45)
[2022-08-23] MEDS: Insulin NPH Human Isophane 100 UNIT/ML (10 ML VIAL) SC SCH (12:00)
[2022-08-23] MEDS: HumaLOG 300 UNITS/3 ML VIAL SC PRN ×3 (12:36→20:42)
[2022-08-23] MEDS: Lisinopril 20 MG TAB PO SCH (20:40)
[2022-08-23] MEDS: Venlafaxine HCl XR 150 MG CAP PO SCH (20:41)
[2022-08-23] MEDS: Insulin Glargine 30 UNITS/0.3 ML VIAL SC SCH (20:41)
[2022-08-23] MEDS: Montelukast Sodium 10 mg Tablet PO SCH (20:41)
[2022-08-24] MEDS: Levothyroxine Sodium 75 MCG TAB PO SCH (04:07)
[2022-08-24] MEDS: guaiFENesin/Codeine 200 mg/20 mg 10 ml Cup PO PRN ×3 (04:07→21:01)
[2022-08-24] MEDS: HumaLOG 300 UNITS/3 ML VIAL SC PRN ×4 (04:22→20:44)
[2022-08-24] MEDS: Albuterol HFA (OR) 200 PUFF INH INH SCH ×3 (07:00→19:10)
[2022-08-24] MEDS: Ipratropium 200 Puff Oral Inhaler INH SCH ×3 (07:01→19:11)
[2022-08-24] MEDS: Mometasone 200 MCG/Formoterol 5 MCG 120 PUFF INHALER INH SCH ×2 (07:01→19:11)
[2022-08-24] MEDS: Polyethylene Glycol 3350 17 GM Packet PO SCH (08:32)
[2022-08-24] MEDS: Benzonatate 100 MG CAP PO SCH ×3 (08:33→20:42)
[2022-08-24] MEDS: Aspirin 81 mg Enteric Coated Tablet PO SCH (08:33)
[2022-08-24] MEDS: Cefuroxime 250 MG TAB PO SCH ×2 (08:33→20:42)
[2022-08-24] MEDS: predniSONE 20 MG TAB PO SCH (08:33)
[2022-08-24] MEDS: Heparin 5,000 UNITS/ML VIAL SC SCH ×2 (08:34→20:43)
[2022-08-24] MEDS: Fluticasone Propionate Nasal Spray 16 gm Bottle NASAL SCH (08:34)
[2022-08-24] MEDS: Ipratropium Bromide 0.03% Nasal Inhaler 30 ml Bottle EA NARE SCH ×3 (08:34→21:34)
[2022-08-24] MEDS ORDERED: NPH, Human Insulin Isophane 300 UNIT/3 ML VIAL SC SCH (09:00)
[2022-08-24] MEDS: NPH, Human Insulin Isophane 300 UNIT/3 ML VIAL SC SCH (09:04)
[2022-08-24] MEDS: Montelukast Sodium 10 mg Tablet PO SCH (20:42)
[2022-08-24] MEDS: Venlafaxine HCl XR 150 MG CAP PO SCH (20:42)
[2022-08-24] MEDS: Lisinopril 20 MG TAB PO SCH (20:42)
[2022-08-24] MEDS: Insulin Glargine 30 UNITS/0.3 ML VIAL SC SCH (20:43)
[2022-08-24] MEDS: Melatonin 3 MG TAB PO PRN (20:57)
[2022-08-24] MEDS: Acetaminophen 500 MG TAB PO PRN (20:57)
[2022-08-25] MEDS: Ipratropium 200 Puff Oral Inhaler INH SCH ×4 (00:02→18:26)
[2022-08-25] MEDS: Albuterol HFA (OR) 200 PUFF INH INH SCH ×4 (00:02→18:26)
[2022-08-25] MEDS: Levothyroxine Sodium 75 MCG TAB PO SCH (05:17)
[2022-08-25] MEDS: HumaLOG 300 UNITS/3 ML VIAL SC PRN ×3 (05:22→20:34)
[2022-08-25] MEDS: Heparin 5,000 UNITS/ML VIAL SC SCH ×2 (08:05→20:22)
[2022-08-25] MEDS: Polyethylene Glycol 3350 17 GM Packet PO SCH (08:06)
[2022-08-25] MEDS: Benzonatate 100 MG CAP PO SCH ×3 (08:06→20:20)
[2022-08-25] MEDS: predniSONE 20 MG TAB PO SCH (08:07)
[2022-08-25] MEDS: Aspirin 81 mg Enteric Coated Tablet PO SCH (08:07)
[2022-08-25] MEDS: Cefuroxime 250 MG TAB PO SCH ×2 (08:08→20:34)
[2022-08-25] MEDS: Alogliptin 25 MG TAB PO SCH (08:11)
[2022-08-25] MEDS: NPH, Human Insulin Isophane 300 UNIT/3 ML VIAL SC SCH (08:17)
[2022-08-25] MEDS: Ipratropium Bromide 0.03% Nasal Inhaler 30 ml Bottle EA NARE SCH ×3 (08:20→21:28)
[2022-08-25] MEDS: Fluticasone Propionate Nasal Spray 16 gm Bottle NASAL SCH (08:20)
[2022-08-25] MEDS: Mometasone 200 MCG/Formoterol 5 MCG 120 PUFF INHALER INH SCH ×2 (11:27→18:26)
[2022-08-25] MEDS: guaiFENesin/Codeine 200 mg/20 mg 10 ml Cup PO PRN ×2 (12:00→20:23)
[2022-08-25] MEDS: Guaifenesin DM 100-10/5 ML UDCUP PO PRN (16:25)
[2022-08-25] MEDS: Melatonin 3 MG TAB PO PRN (20:21)
[2022-08-25] MEDS: Venlafaxine HCl XR 150 MG CAP PO SCH (20:21)
[2022-08-25] MEDS: Montelukast Sodium 10 mg Tablet PO SCH (20:22)
[2022-08-25] MEDS: Insulin Glargine 30 UNITS/0.3 ML VIAL SC SCH (20:22)
[2022-08-25] MEDS: Lisinopril 20 MG TAB PO SCH (20:23)
[2022-08-26] MEDS: Albuterol HFA (OR) 200 PUFF INH INH SCH ×4 (00:08→19:00)
[2022-08-26] MEDS: Ipratropium 200 Puff Oral Inhaler INH SCH ×5 (00:08→23:24)
[2022-08-26] MEDS: Levothyroxine Sodium 75 MCG TAB PO SCH (05:14)
[2022-08-26] MEDS: Guaifenesin DM 100-10/5 ML UDCUP PO PRN (05:24)
[2022-08-26] MEDS: Mometasone 200 MCG/Formoterol 5 MCG 120 PUFF INHALER INH SCH ×2 (07:36→19:00)
[2022-08-26] MEDS: Acetaminophen 500 MG TAB PO PRN ×2 (08:07→20:30)
[2022-08-26] MEDS: predniSONE 20 MG TAB PO SCH (08:08)
[2022-08-26] MEDS: Heparin 5,000 UNITS/ML VIAL SC SCH ×2 (08:08→20:22)
[2022-08-26] MEDS: Benzonatate 100 MG CAP PO SCH ×3 (08:08→20:21)
[2022-08-26] MEDS: Cefuroxime 250 MG TAB PO SCH ×2 (08:08→20:21)
[2022-08-26] MEDS: Polyethylene Glycol 3350 17 GM Packet PO SCH (08:08)
[2022-08-26] MEDS: Aspirin 81 mg Enteric Coated Tablet PO SCH (08:09)
[2022-08-26] MEDS: Alogliptin 25 MG TAB PO SCH (08:09)
[2022-08-26] MEDS: NPH, Human Insulin Isophane 300 UNIT/3 ML VIAL SC SCH (08:09)
[2022-08-26] MEDS: Ipratropium Bromide 0.03% Nasal Inhaler 30 ml Bottle EA NARE SCH ×3 (08:10→21:35)
[2022-08-26] MEDS: Fluticasone Propionate Nasal Spray 16 gm Bottle NASAL SCH (08:10)
[2022-08-26] MEDS: guaiFENesin/Codeine 200 mg/20 mg 10 ml Cup PO PRN ×2 (08:19→20:22)
[2022-08-26] MEDS: Triamterene/Hydrochlorothiazide 37.5 mg/25 mg Tablet PO SCH (08:19)
[2022-08-26] MEDS: HumaLOG 300 UNITS/3 ML VIAL SC PRN ×3 (11:44→20:38)
[2022-08-26] MEDS: Montelukast Sodium 10 mg Tablet PO SCH (20:21)
[2022-08-26] MEDS: Melatonin 3 MG TAB PO PRN (20:21)
[2022-08-26] MEDS: Venlafaxine HCl XR 150 MG CAP PO SCH (20:21)
[2022-08-26] MEDS: Lisinopril 20 MG TAB PO SCH (20:21)
[2022-08-26] MEDS: Insulin Glargine 30 UNITS/0.3 ML VIAL SC SCH (20:22)
[2022-08-26] MEDS ORDERED: Atorvastatin Calcium 40 MG TAB PO SCH (21:00)
[2022-08-27] MEDS: Albuterol HFA (OR) 200 PUFF INH INH SCH ×3 (02:35→12:42)
[2022-08-27 05:20] VITALS: BMI 41.3
[2022-08-27] MEDS: Levothyroxine Sodium 75 MCG TAB PO SCH (05:31)
[2022-08-27 07:41] VITALS: BP 112/74; TEMP 97.8
[2022-08-27] MEDS: Mometasone 200 MCG/Formoterol 5 MCG 120 PUFF INHALER INH SCH (07:47)
[2022-08-27] MEDS: Ipratropium 200 Puff Oral Inhaler INH SCH ×2 (07:48→12:40)
[2022-08-27] MEDS: Ipratropium Bromide 0.03% Nasal Inhaler 30 ml Bottle EA NARE SCH (08:20)
[2022-08-27] MEDS: Benzonatate 100 MG CAP PO SCH (08:39)
[2022-08-27] MEDS: Alogliptin 25 MG TAB PO SCH (08:39)
[2022-08-27] MEDS: Aspirin 81 mg Enteric Coated Tablet PO SCH (08:39)
[2022-08-27] MEDS: Triamterene/Hydrochlorothiazide 37.5 mg/25 mg Tablet PO SCH (08:39)
[2022-08-27] MEDS: Polyethylene Glycol 3350 17 GM Packet PO SCH (08:39)
[2022-08-27] MEDS: Heparin 5,000 UNITS/ML VIAL SC SCH (08:40)
[2022-08-27] MEDS: NPH, Human Insulin Isophane 300 UNIT/3 ML VIAL SC SCH (08:41)
[2022-08-27] MEDS: Acetaminophen 500 MG TAB PO PRN (08:51)
[2022-08-27] MEDS: Cefuroxime 250 MG TAB PO SCH (08:51)
[2022-08-27] MEDS: Fluticasone Propionate Nasal Spray 16 gm Bottle NASAL SCH (08:52)
[2022-08-27] MEDS ORDERED: predniSONE 20 MG TAB PO SCH (09:00)
[2022-08-27] MEDS: HumaLOG 300 UNITS/3 ML VIAL SC PRN (12:12)
[2022-08-27] MEDS: Albuterol 200 PUFF (6.7GM INHALER) INH PRN (12:39)
[2022-08-27] MEDS: guaiFENesin/Codeine 200 mg/20 mg 10 ml Cup PO PRN (13:37)
[2022-08-30] MEDS ORDERED: predniSONE 20 MG TAB PO SCH (08:00)
== END 2022-08-27 13:37 | disposition home or self-care (01) | DRG 189 ==
LOC: ERS 21:23 → IMCU/EMU 23:26 → T4-A 08-18 14:55
PROVIDERS: ADMIT Internal Medicine; ATTEND Internal Medicine
PROC: 5A09357 Assistance with Respiratory Ventilation, Less than 24 Consecutive Hours, Continuous Positive Airway Pressure (ICD-10-PCS; principal; 2022-08-18)
DX: J96.01 Acute respiratory failure with hypoxia (principal); J44.0 Chronic obstructive pulmonary disease with (acute) lower respiratory infection; J45.901 Unspecified asthma with (acute) exacerbation; J45.902 Unspecified asthma with status asthmaticus; I13.0 Hypertensive heart and chronic kidney disease with heart failure and stage 1 through stage 4 chronic kidney disease, or unspecified chronic kidney disease; Z66 Do not resuscitate; Z20.822 Contact with and (suspected) exposure to COVID-19; E11.65 Type 2 diabetes mellitus with hyperglycemia; J30.9 Allergic rhinitis, unspecified; G47.30 Sleep apnea, unspecified; N18.31 Chronic kidney disease, stage 3a; E03.9 Hypothyroidism, unspecified; I50.9 Heart failure, unspecified; F32.A Depression, unspecified; Z60.2 Problems related to living alone; F12.10 Cannabis abuse, uncomplicated; Z90.13 Acquired absence of bilateral breasts and nipples; Z85.3 Personal history of malignant neoplasm of breast; Z85.71 Personal history of Hodgkin lymphoma; Z92.21 Personal history of antineoplastic chemotherapy; Z92.3 Personal history of irradiation; Z88.5 Allergy status to narcotic agent; Z79.4 Long term (current) use of insulin; Z79.890 Hormone replacement therapy; Z79.899 Other long term (current) drug therapy; Z90.49 Acquired absence of other specified parts of digestive tract
CPT/HCPCS: 36415; 36416; 36600; 70551; 71045; 80048; 80053; 81015; 82103; 82550; 82805; 83036; 83605; 84145; 84484; 85025; 87040; 93005; 93306; 94640; 94644; 94660; 94760; 96365; 96367; 96368; 96375; J0456; J0696; J1644; J1815; J2405; J2765; J2920; J3475; J3490; J7512; J7611; J7620; U0003; U0005

== ENCOUNTER 2023-04-29 13:51 | Outpatient (CLI) | payer MEDICARE | END 2023-04-29 13:52 | disposition home or self-care (01) | LOC: BICRAD 13:51 | PROVIDERS: ATTEND Family Medicine | DX: Z85.71 Personal history of Hodgkin lymphoma (principal) | CPT/HCPCS: 36415; 71046; 80053; 80061; 83036; 84443 ==

== ENCOUNTER 2024-04-16 15:10 | Outpatient (CLI) | payer OTHER | END 2024-04-16 15:11 | disposition home or self-care (01) | LOC: BICRAD 15:10 | PROVIDERS: ATTEND Family Medicine | DX: Z08 Encounter for follow-up examination after completed treatment for malignant neoplasm (principal); Z85.71 Personal history of Hodgkin lymphoma | CPT/HCPCS: 71046 ==